=== PATIENT | female | born 1940 | race Caucasian/White ===

== ENCOUNTER 2017-11-09 07:36 | Day surgery (SDC) | payer MEDICARE ==
[2017-11-08 14:53] VITALS: BMI 30.4
[2017-11-09 08:01] LABS: INR-International Normal Ratio 1.1; PTT 29.9 SEC (22.9-36.1); Prothrombin Time 13.8 SEC (12.0-14.7)
[2017-11-09 08:28] VITALS: BP 154/71; TEMP 98
--- NOTE | 2017-11-09 12:23 | CT ---
CT GUIDED LIVER MASS BIOPSY: Date: 11/09/17 HISTORY: Liver mass. COMPARISON: CT of 10/28/17. TECHNIQUE/FINDINGS: The patient was brought to the CT suite. All questions were answered. Informed consent was obtained. Timeout was performed. Preprocedure imaging redemonstrated the hypodense area of the liver which was felt to reflect the are a of interest. The patient was given a total of 50 mcg of Fentanyl and 1 mg of Versed for moderate se dation. 4 mL of buffered lidocaine was instilled into the superficial and deep soft tissues, as well as along the hepatic capsule. Using a 17 gauge introducer and an 18 gauge 22 mm BioPince needle, a to nakia of three cores were obtained. Pathologist on site demonstrated adequacy. IMPRESSION: Technically successful CT guided liver mass biopsy. POS: ARIAN
== END 2017-11-09 12:15 | disposition home or self-care (01) ==
LOC: CT 07:36
PROVIDERS: ATTEND Family Medicine
PROC: 0FB03ZX Excision of Liver, Percutaneous Approach, Diagnostic (ICD-10-PCS; principal; 2017-11-09)
DX: C22.8 Malignant neoplasm of liver, primary, unspecified as to type (principal); E11.9 Type 2 diabetes mellitus without complications; I10 Essential (primary) hypertension; E78.00 Pure hypercholesterolemia, unspecified; Z79.899 Other long term (current) drug therapy
CPT/HCPCS: 36415; 47000; 77012; 85610; 85730; 88307; 88333; 88334; 88341; 88342

== ENCOUNTER 2017-11-17 16:06 | Emergency (ER) | payer MEDICARE ==
[~2017-11-17 16:06] MED LIST: ISOVUE-370 76%-LOCM 1 ML ONE
[2017-11-17] MEDS ORDERED: Fentanyl 100 MCG/2 ML VIAL ONE (16:30)
[2017-11-17] MEDS ORDERED: Ondansetron HCl/PF 4 MG/2 ML Vial ONE (16:39)
[2017-11-17 16:41] LABS: #Basophils 0.1 thou/uL (0.0-0.2); #Eosinphils 0.1 thou/uL (0.0-0.7); #Lymphocytes 2.2 thou/uL (1.20-3.40); #Neutrophils 8.8 thou/uL (1.40-6.50); %Basophils 1.1 % (0.0-1.0); %Eosinophils 0.7 % (0.0-10.0); %Lymphocytes 17.8 % (21.0-51.0); %Monocytes 7.9 % (0.0-10.0); %Neutrophils 72.5 % (42.0-75.0); Mean Corpuscular Hemoglobin 28.2 pg (27.0-31.0); Mean Corpuscular Volume 88.1 fL (78.0-98.0); Mean Platelet Volume 7.3 fL (7.4-10.4); Platelet Count 371 thou/uL (130-400); RBC Distribution Width 14.1 % (11.5-14.5); Red Blood Cell (RBC) Count 3.92 mill/uL (4.20-5.40); White Blood Cell (WBC) Count 12.2 thou/uL (4.8-10.8)
[2017-11-17 16:54] LABS: ALT (SGPT) 12 U/L (8-55); AST (SGOT) 27 U/L (5-34); Albumin 3.7 g/dL (3.4-4.8); Alkaline Phosphatase 185 U/L (40-150); Anion Gap 12 mmol/L (10-20); BUN (Urea Nitrogen) 20 mg/dL (9.8-20.1); Bilirubin, Total 0.8 mg/dL (0.2-1.2); Calc. Creatinine Clearance 0 mL/min (70-130); Calcium 9.5 mg/dL (7.8-10.44); Carbon Dioxide 25 mmol/L (23-31); Chloride 99 mmol/L (98-107); Estimated GFR-MDRD 49; Globulin 3.5 g/dL (2.4-3.5); Glucose 114 mg/dL (83-110); Lipase 19 U/L (8-78); Potassium 3.5 mmol/L (3.5-5.1); Protein, Total 7.2 g/dL (6.0-8.3); Sodium 132 mmol/L (136-145)
[2017-11-17 17:01] LABS: CKMB 0.9 ng/mL (0-6.6); Troponin I Less than 0.010 ng/mL (< 0.028)
[2017-11-17] MEDS ORDERED: Morphine 2 MG/ML SYRINGE ONE (17:32)
--- NOTE | 2017-11-17 21:03 | CT ---
CT ABDOMEN WITH CONTRAST CT PELVIS WITH CONTRAST: DATE: 11/17/17 HISTORY: 77-year-old female with generalized abdominal pain. COMPARISON: None. TECHNIQUE: IV injection of iodinated contrast media: 70 mL of Isovue 370. Oral contrast media: PO Isovue. FINDINGS: There are multiple rim enhancing solid neoplastic tumor masses throughout the entire left lobe of the liver and encroaching upon portions of the adjacent right lobe of the liver. There is a tiny calcifi ed gallstone near the neck of the gallbladder. No pericholecystic edema or gallbladder wall thickenin g. Small isolated subcapsular 1.2 cm round nodule in the right lobe of the liver in hepatic segment V I. Heavy atherosclerotic calcification without aneurysm of the abdominal aorta. No hydronephrosis john aterally. No adrenal mass. Pancreas and spleen are unremarkable. Moderate collection of free fluid in the dependent portion of the pelvic cavity with density of 25 HU, suggestive of blood. No pneumoperi toneum. No small bowel dilation. No colonic diverticulitis. Decompressed urinary bladder. Appendix no t identified. No overt signs of appendicitis. The entire right lobe of the liver has heterogeneous at tenuation suggestive of venous congestion. IMPRESSION: 1. Large number of confluent neoplastic tumor masses involving the liver, mostly the left lobe. 2. Cholelithiasis without evidence of acute cholecystitis. 3. Small to moderate collection of free fluid in the pelvis representing hemoperitoneum. MARTIN Winkler POS: ARIAN
== END 2017-11-17 23:20 ==
LOC: ERS 16:06
DX: C22.9 Malignant neoplasm of liver, not specified as primary or secondary (principal); E78.5 Hyperlipidemia, unspecified; F41.9 Anxiety disorder, unspecified; F32.9 Major depressive disorder, single episode, unspecified; Z87.891 Personal history of nicotine dependence; E11.9 Type 2 diabetes mellitus without complications; Z79.899 Other long term (current) drug therapy; Z79.84 Long term (current) use of oral hypoglycemic drugs
CPT/HCPCS: 74177; 80053; 82553; 83690; 84484; 85025; 93005; 96361; 96374; 96375; J2270; J2405; J3010

== ENCOUNTER 2017-12-29 12:33 | Outpatient (CLI) | payer MEDICARE ==
--- NOTE | 2017-12-29 16:48 | PET ---
PET WITH CT SKULL TO MID THIGH: CLINICAL HISTORY: Poorly differentiated carcinoma, unknown primary. RADIOPHARMACEUTICAL: 12. mCi F18-FDG IV. FINDINGS: Multifocal hypermetabolic masses throughout the liver present, most notably within the left hepatic l obe, with maximum SUV approximately 7.8. There is a hypermetabolic focus of the right ischial tuberos ity, SUV 2.6. There are diffuse bilateral patchy opacities of the pulmonary parenchyma which are nons pecific. There is a prominent volume of free pelvic fluid which likely relates to the prominent tumor burden of the liver, as there is also a small volume of perihepatic ascites. There is a left chest p ort in place. Borderline size of the spleen. Diffuse vascular calcification. IMPRESSION: 1. Diffuse, multifocal hypermetabolic hepatic masses compatible with malignancy. 2. Focus of increased metabolic activity at the ischial tuberosity, right-sided, which may relate to osseous metastatic disease. 3. Abdominal and pelvic ascites. POS: ARIAN
== END 2017-12-29 12:34 | disposition home or self-care (01) ==
LOC: PET 12:33
PROVIDERS: ATTEND Internal Medicine Hematology & Oncology
DX: C80.0 Disseminated malignant neoplasm, unspecified (principal); R16.0 Hepatomegaly, not elsewhere classified; R18.8 Other ascites
CPT/HCPCS: 78815; A9552

== ENCOUNTER 2018-01-21 17:21 | Inpatient (IN) | payer MEDICARE ==
[2018-01-21] MEDS ORDERED: Piperacillin/Tazobactam 4.5 GM VIAL ONE (19:04)
[2018-01-21] MEDS ORDERED: HYDROcodone/Acetaminophen 5/325 mg Tablet ONE (20:14)
[2018-01-21] MEDS ORDERED: diphenhydrAMINE 50 MG/ML VIAL ONE (21:44)
[2018-01-21] MEDS ORDERED: Acetaminophen 650 MG Suppository PR PRN (21:48)
[2018-01-21] MEDS ORDERED: Zolpidem Tartrate 5 MG TAB PO PRN (21:48)
[2018-01-21] MEDS ORDERED: Dextrose 50% Abboject 50 ML SYRINGE SLOW IVP PRN (21:48)
[2018-01-21] MEDS ORDERED: HumaLOG 300 UNITS/3 ML VIAL SC PRN (21:48)
[2018-01-21] MEDS ORDERED: Dextrose 5% in Water 1,000 ML IV PRN (21:48)
[2018-01-21] MEDS ORDERED: Senokot S 8.6-50 MG TAB PO PRN (21:48)
[2018-01-21 22:13] LABS: Hemoglobin 7.3 g/dL (12.0-16.0); Mean Corpuscular HGB CONC 36.1 g/dL (32.0-36.0); Mean Corpuscular Hemoglobin 30.1 pg (27.0-31.0); Mean Corpuscular Volume 83.5 fL (78.0-98.0); Platelet Count 16 thou/uL (130-400); Red Blood Cell (RBC) Count 2.42 mill/uL (4.20-5.40); White Blood Cell (WBC) Count 0.4 thou/uL (4.8-10.8)
[2018-01-21 22:15] LABS: Anion Gap 14 mmol/L (10-20); BUN (Urea Nitrogen) 36 mg/dL (9.8-20.1); Calc. Creatinine Clearance 0 mL/min (70-130); Carbon Dioxide 25 mmol/L (23-31); Chloride 97 mmol/L (98-107); Estimated GFR-MDRD 43; Glucose 178 mg/dL (83-110); Sodium 133 mmol/L (136-145)
[2018-01-21 22:26] LABS: Potassium 2.9 mmol/L (3.5-5.1)
[2018-01-21 23:01] VITALS: BMI 29.0
[2018-01-21 23:47] LABS: Lactic Acid 1.8 mmol/L (0.5-2.2)
[2018-01-21] MEDS: Morphine 2 MG/ML SYRINGE SLOW IVP PRN (23:49)
[2018-01-21] MEDS: Potassium Chloride 10 MEQ in Premix Bag 1 BAG IVPB SCH (23:53)
[2018-01-21] MEDS: Sodium Chloride 0.9% 1,000 ML IV SCH (23:53)
[2018-01-22] MEDS: MEROPENEM 1 GM/50 ML 1 GM in Premix Bag 1 BAG IVPB SCH ×2 (00:32→13:07)
[2018-01-22] MEDS: Potassium Chloride 10 MEQ in Premix Bag 1 BAG IVPB SCH ×3 (01:46→03:57)
[2018-01-22] MEDS: Morphine 2 MG/ML SYRINGE SLOW IVP PRN ×2 (03:57→09:45)
[2018-01-22] MEDS ORDERED: Magnesium 2 GM/NS 0.9% 100 ML 2 GM in Premix Bag 1 BAG IVPB SCH (05:00)
[2018-01-22] MEDS ORDERED: Magnesium 2 GM/50 ML 2 GM in Premix Bag 1 BAG IVPB SCH (05:30)
[2018-01-22] MEDS ORDERED: Famotidine/PF 20 mg/2ml Vial SLOW IVP SCH ×2 (09:00)
[2018-01-22] MEDS ORDERED: Enoxaparin Sodium 40 MG/0.4 ML SYRINGE SC SCH (09:00)
[2018-01-22] MEDS ORDERED: Famotidine 20 MG TAB PO SCH ×2 (09:00)
[2018-01-22] MEDS ORDERED: Sodium Chloride 0.65% Nasal 44 ML BOT EA NARE PRN ×2 (09:06→19:27)
[2018-01-22] MEDS ORDERED: Loratadine 10 MG TAB PO PRN (09:06)
[2018-01-22] MEDS ORDERED: Cepastat Lozenges 1 LOZ PO PRN (09:06)
[2018-01-22] MEDS ORDERED: Artificial Tears 18 DROP/0.9 ML EA EYE PRN (09:06)
[2018-01-22] MEDS ORDERED: Eucerin (Mineral Oil/Petrolatum,White) 30 gm Jar TOP PRN (09:06)
[2018-01-22] MEDS ORDERED: hydrALAZINE 20 MG/ML VIAL SLOW IVP PRN (09:06)
[2018-01-22] MEDS ORDERED: Loperamide HCl 2 MG CAP PO PRN (09:06)
[2018-01-22] MEDS ORDERED: Diabetic Tussin 200 MG/10 ML UDCUP PO PRN (09:06)
--- NOTE | 2018-01-22 09:10 | PDOC.PN ---
- Subjective Encounter Start Date: 01/22/18 Encounter Start Time: 07:00 -: old records requested/rev Patient seen and examined. No new complaints. No overnight events she feels weak, her breathing is fine, her pain is controlled - Objective Resuscitation Status - Order Detail: 01/21/18 21:48 Resuscitation Status Routine Resuscitation Status: FULL: Full Resuscitation MAR Reviewed: Yes Vital Signs & Weight: Vital Signs (12 hours) Temp Pulse Resp BP Pulse Ox 01/22/18 08:31 92 L 01/22/18 08:29 61 20 92 L 01/22/18 08:18 96.0 F L 62 18 106/53 L 98 01/22/18 03:37 97.4 F L 61 20 117/58 L 100 01/21/18 23:27 97.4 F L 60 16 135/65 99 01/21/18 23:21 98 01/21/18 22:30 97.4 F L 62 20 140/63 100 01/21/18 21:48 98 Weight Weight 180 lb 1 oz Result Diagrams: 01/21/18 19:27 01/21/18 19:27 Additional Labs: Accuchecks 01/22/18 05:16 POC Glucose 129 H Phys Exam - Physical Examination Constitutional: NAD HEENT: PERRLA, moist MMs, sclera anicteric Neck: no JVD, supple Respiratory: no wheezing, no rhonchi Cardiovascular: RRR, no significant murmur, no rub Gastrointestinal: soft, non-tender, no distention, positive bowel sounds Musculoskeletal: no edema, pulses present Neurological: non-focal, normal sensation, moves all 4 limbs Lymphatic: no nodes Psychiatric: normal affect, A&O x 3 Skin: no rash, normal turgor Dx/Plan (1) Acute kidney injury Code(s): N17.9 - ACUTE KIDNEY FAILURE, UNSPECIFIED Status: Acute (2) Hypokalemia Code(s): E87.6 - HYPOKALEMIA Status: Acute (3) Hyponatremia Code(s): E87.1 - HYPO-OSMOLALITY AND HYPONATREMIA Status: Acute (4) Hypotension Status: Acute (5) Left lower lobe pneumonia Code(s): J18.1 - LOBAR PNEUMONIA, UNSPECIFIED ORGANISM Status: Acute (6) Pancytopenia due to chemotherapy Code(s): D61.810 - ANTINEOPLASTIC CHEMOTHERAPY INDUCED PANCYTOPENIA Status: Acute (7) 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 Code(s): C78.7 - SECONDARY MALIG NEOPLASM OF LIVER AND INTRAHEPATIC BILE DUCT; C80.1 - MALIGNANT (PRIMARY) NEOPLASM, UNSPECIFIED Status: Acute Comment: poorly differentiated carcinoma (8) Anxiety and depression Code(s): F41.9 - ANXIETY DISORDER, UNSPECIFIED; F32.9 - MAJOR DEPRESSIVE DISORDER, SINGLE EPISODE, UNSPECIFIED Status: Chronic (9) Dyslipidemia Code(s): E78.5 - HYPERLIPIDEMIA, UNSPECIFIED Status: Chronic (10) Hypertension Code(s): I10 - ESSENTIAL (PRIMARY) HYPERTENSION Status: Chronic - Plan cont current plan of care, continue antibiotics * continue empiric meropenam and vancomycin * continue IVF * hold her BP meds for SBP <120 * follow culture * repeat labs tomorrow * medication reviewed as below * symptomatic treatment. * transfusional support if needed Review of Systems - Review of Systems Constitutional: weakness. negative: fever, chills, sweats, malaise, other ENT: negative: Ear Pain, Ear Discharge, Nose Pain, Nose Discharge, Nose Congestion, Mouth Pain, Mouth Swelling, Throat Pain, Throat Swelling, Other Respiratory: negative: Cough, Dry, Shortness of Breath, Hemoptysis, SOB with Excertion, Pleuritic Pain, Sputum, Wheezing Cardiovascular: negative: chest pain, palpitations, orthopnea, paroxysmal nocturnal dyspnea, edema, light headedness, other Gastrointestinal: negative: Nausea, Vomiting, Abdominal Pain, Diarrhea, Constipation, Melena, Hematochezia, Other Genitourinary: negative: Dysuria, Frequency, Incontinence, Hematuria, Retention , Other Musculoskeletal: negative: Neck Pain, Shoulder Pain, Arm Pain, Back Pain, Hand Pain, Leg Pain, Foot Pain, Other Skin: negative: Rash, Lesions, Donnell, Bruising, Other - Medications/Allergies Allergies/Adverse Reactions: Allergies Allergy/AdvReac Type Severity Reaction Status Date / Time ibuprofen Allergy Rash Verified 11/08/17 11:44 Medications: Current Medications Acetaminophen (Tylenol) 650 mg PO Q4H PRN PRN Reason: Headache/Fever/Mild Pain (1-3) Acetaminophen (Tylenol) 650 mg [place] Q4H PRN PRN Reason: Headache/Fever/Mild Pain (1-3) Albuterol/Ipratropium (Duoneb) 3 ml NEB [id number] [facility] Last Admin: 01/22/18 08:29 Dose: 3 ml Albuterol/Ipratropium (Duoneb) 3 ml NEB Q4H PRN PRN Reason: SOB &/or Wheezing Artificial Tears (Tears Naturale) 2 drop EA EYE PRN PRN PRN Reason: Dry Eyes Betamethasone/Clotrimazole (Lotrisone Cream) 0 gm TOP BID [facility] Bisacodyl (Dulcolax) 10 mg PO DAILYPRN PRN PRN Reason: Constipation Bisoprolol Fumarate (Zebeta) 5 mg PO DAILY [facility] Cholecalciferol (Vitamin D3) 2,000 units PO DAILY [facility] Clopidogrel Bisulfate (Plavix) 75 mg PO DAILY [facility] Dextrose/Water (Dextrose 50%) 25 gm SLOW IVP PRN PRN PRN Reason: Hypoglycemia Enoxaparin Sodium (Lovenox) 40 mg SC 0900 [facility] Glucagon (Glucagon) 1 mg IM PRN PRN PRN Reason: Hypoglycemia Guaifenesin (Robitussin Sf) 200 mg PO Q4H PRN PRN Reason: Cough Hydralazine HCl (Apresoline) 10 mg SLOW IVP Q4H PRN PRN Reason: SBP > 180 and HR < 70 Sodium Chloride (Normal Saline 0.9%) 1,000 mls @ 100 mls/hr IV .Q10H [facility] Last Admin: 01/21/18 23:53 Dose: 1,000 mls Dextrose/Water (D5w) 1,000 mls @ 0 mls/hr IV .Q0M PRN PRN Reason: Hypoglycemia Vancomycin HCl 750 mg/ Sodium (Chloride) 250 mls @ 250 mls/hr IVPB Q12HR [facility] Meropenem 1 gm/ Device 50 mls @ 100 mls/hr IVPB 1200,2359 [facility] Last Admin: 01/22/18 00:32 Dose: 50 mls Insulin Human Lispro (Humalog) 0 units SC .MILD SLIDING SCALE PRN PRN Reason: Mild Correctional Scale Insulin Human Lispro (Humalog) 0 units SC .BEDTIME SLIDING SC PRN PRN Reason: Bedtime Correctional Scale Loperamide HCl (Imodium) 2 mg PO PRN PRN PRN Reason: Diarrhea/Loose Stools Loratadine (Claritin) 10 mg PO DAILYPRN PRN PRN Reason: Sinus Symptoms Losartan Potassium (Cozaar) 50 mg PO DAILY [facility] Mineral Oil/White Petrolatum (Eucerin Cream) 0 gm TOP BIDPRN PRN PRN Reason: Dry Skin Miscellaneous Medication (Pharmacy To Dose) 1 each IVPB PRN PRN PRN Reason: Pharmacy to dose Montelukast Sodium (Singulair) 10 mg PO HS [facility] Morphine Sulfate (Morphine) 2 mg SLOW IVP Q4H PRN PRN Reason: Moderate Pain (4-6) Last Admin: 01/22/18 03:57 Dose: 2 mg Ondansetron HCl (Zofran Odt) 4 mg PO Q6H PRN PRN Reason: Nausea/Vomiting Ondansetron HCl (Zofran) 4 mg IVP Q6H PRN PRN Reason: Nausea/Vomiting Pantoprazole Sodium (Protonix) 40 mg PO DAILY [facility] Saccharomyces Boulardii (Florastor) 250 mg PO DAILY [facility] Senna/Docusate Sodium (Senokot S) 2 tab PO BIDPRN PRN PRN Reason: Constipation Sertraline HCl (Zoloft) 50 mg PO DAILY [facility] Simvastatin (Zocor) 40 mg PO HS [facility] Sodium Chloride (Flush - Normal Saline) 10 ml IVF Q12HR PRN PRN Reason: Saline Flush Sodium Chloride (Flush - Normal Saline) 10 ml IVF PRN PRN PRN Reason: Saline Flush Sodium Chloride ([place] Nasal [place] 0.65%) 0 ml EA NARE QIDPRN PRN PRN Reason: Nasal Congestion Throat Lozenges (Cepastat Lozenges) 1 nimisha PO Q2H PRN PRN Reason: Sore Throat Zolpidem Tartrate (Ambien) 5 mg PO HSPRN PRN PRN Reason: Insomnia
[2018-01-22] MEDS: Ondansetron PF 4 MG/2 ML Vial IVP PRN ×2 (09:50→23:58)
[2018-01-22] MEDS: Clopidogrel Bisulfate 75 MG TAB PO SCH ×2 (09:56→10:27)
[2018-01-22] MEDS: Vancomycin HCl 750 MG in Sodium Chloride 0.9% 250 ML 250 ML IVPB SCH ×2 (09:56→21:16)
[2018-01-22] MEDS: Losartan 25 MG TAB PO SCH ×2 (09:57→10:30)
[2018-01-22] MEDS: Bisoprolol Fumarate 5 MG TAB PO SCH ×2 (09:57→10:27)
[2018-01-22 13:11] LABS: Hemoglobin 9.9 g/dL (12.0-16.0); Mean Corpuscular HGB CONC 32.1 g/dL (32.0-36.0); Mean Corpuscular Hemoglobin 27.9 pg (27.0-31.0); Mean Platelet Volume 16.9 fL (7.4-10.4); Platelet Count 11 thou/uL (130-400); RBC Distribution Width 15.2 % (11.5-14.5); Red Blood Cell (RBC) Count 3.55 mill/uL (4.20-5.40); White Blood Cell (WBC) Count 0.4 thou/uL (4.8-10.8)
[2018-01-22] MEDS: Sodium Chloride 0.9% 1,000 ML IV SCH ×2 (20:39→21:21)
[2018-01-22] MEDS: Clotrimazole/Betamethasone Cream 45 GM TUBE TOP SCH ×2 (20:39→21:20)
[2018-01-22] MEDS: Montelukast Sodium 10 mg Tablet PO SCH (21:20)
[2018-01-22] MEDS: Simvastatin 40 MG TAB PO SCH (21:20)
[2018-01-23] MEDS: MEROPENEM 1 GM/50 ML 1 GM in Premix Bag 1 BAG IVPB SCH ×3 (02:05→23:33)
[2018-01-23 06:32] LABS: Hemoglobin 9.2 g/dL (12.0-16.0); Mean Corpuscular HGB CONC 30.7 g/dL (32.0-36.0); Mean Corpuscular Hemoglobin 27.1 pg (27.0-31.0); Mean Corpuscular Volume 88.5 fL (78.0-98.0); Mean Platelet Volume 11.4 fL (7.4-10.4); Platelet Count 34 thou/uL (130-400); RBC Distribution Width 15.3 % (11.5-14.5); Red Blood Cell (RBC) Count 3.41 mill/uL (4.20-5.40); White Blood Cell (WBC) Count 0.5 thou/uL (4.8-10.8)
[2018-01-23 06:43] LABS: Chloride 103 mmol/L (98-107); Potassium 3.2 mmol/L (3.5-5.1); Sodium 134 mmol/L (136-145)
[2018-01-23 06:49] LABS: MDiff Complete? YES; Ovalocytes SLIGHT = 2-5 cells (100X) (0-1/hpf); PLT Morphology Comment Appears Decreased
[2018-01-23 06:55] LABS: ALT (SGPT) 12 U/L (8-55); AST (SGOT) 36 U/L (5-34); Albumin 2.1 g/dL (3.4-4.8); Alkaline Phosphatase 98 U/L (40-150); BUN (Urea Nitrogen) 25 mg/dL (9.8-20.1); Bilirubin, Total 1.4 mg/dL (0.2-1.2); Calc. Creatinine Clearance 70 mL/min (70-130); Calcium 8.3 mg/dL (7.8-10.44); Carbon Dioxide 20 mmol/L (23-31); Estimated GFR-MDRD 65; Globulin 3.1 g/dL (2.4-3.5); Glucose 154 mg/dL (83-110); Protein, Total 5.2 g/dL (6.0-8.3)
[2018-01-23 06:57] LABS: Anion Gap 14 mmol/L (10-20)
--- NOTE | 2018-01-23 07:48 | HP ---
CHIEF COMPLAINT: Pneumonia, transfer. HISTORY OF PRESENT ILLNESS: This is a 77-year-old female with past medical history of diabetes mellitus type 2, hyperlipidemia, hypertension, liver CA, being transferred to our facility for left lower lobe pneumonia. Per the patient, she has liver cancer and she was started on chemo medication with Gemzar and Abraxane by Dr. Hernandez on Tuesday and Dr. Hernandez is the patient's oncologist and basically the patient states that she has been receiving the chemo and now the patient has been reporting nausea and vomiting, some weakness and also cough with productive sputum. Due to the cough, generalized weakness, and nausea, the patient's oncologist, Dr. Hernandez, wanted the patient to be transferred to our hospital for dehydration and also shortness of breath. The patient is now found to have left lower lobe pneumonia, which was confirmed on the x-ray. The patient was started on IV Levaquin. At this time, the patient endorses some generalized weakness, dry mouth; however, the patient denies any sick contact. Denies dizziness, chills, chest pain, palpitations, abdominal pain, at this time. REVIEW OF SYSTEMS: Positive for cough, productive sputum, shortness of breath, and some generalized weakness, otherwise as documented in the HPI, all systems were reviewed and are negative. PAST MEDICAL HISTORY: 1. Hyperlipidemia. 2. Hypertension. 3. Diabetes mellitus, type 2. PAST SURGICAL HISTORY: 1. Ganglion cyst removal from wrist. 2. Carotid artery surgery. 3. Tumor removed from the abdominal area in the 70s. 4. Hysterectomy. FAMILY HISTORY: Reviewed and noncontributory to this visit. PSYCHIATRIC HISTORY: Anxiety, depression. SOCIAL HISTORY: The patient drinks occasionally. The patient denies any illicit drug use. The patient is a former tobacco user. Quit more than 10 years ago. ALLERGIES: THE PATIENT IS ALLERGIC TO IBUPROFEN, GIVES THE PATIENT RASH. CURRENT MEDICATIONS: The patient is on: 1. Albuterol. 2. Gabapentin 300 mg. 3. Metformin 500 mg b.i.d. 4. Vitamin D. 5. Montelukast. 6. Sertraline 50 mg. 7. Simvastatin 40 mg. 8. Bisoprolol/hydrochlorothiazide 10 mg/6.25 mg. PHYSICAL EXAMINATION: VITAL SIGNS: Blood pressure is , pulse of 64, respiratory rate of 18, O2 saturation is 98% on 2 L oxygen. GENERAL: The patient is awake, alert, oriented x3, not in acute distress. The patient is lying in bed. The patient is very pleasant. HEENT: Normocephalic, atraumatic. Pupils are equal, round, and reactive to light. Extraocular movements are intact. No scleral icterus. No conjunctival pallor. Mucous membranes are dry. NECK: Trachea is midline. Full range of motion. No JVD. Supple. LUNGS: Clear to auscultation bilaterally. No wheezing, no rales, no rhonchi is appreciated. CARDIAC: Positive S1, S2. Regular rate and rhythm. No murmur, no gallops, no rubs appreciated. ABDOMEN: Soft, nontender, nondistended. Positive bowel sounds in all quadrants. No palpable masses. Some erythema noted at the left lower quadrant. EXTREMITIES: The patient has 5/5 upper extremity strength with good pulses bilaterally at the upper extremities. Lower extremities: The patient has trace edema noted at the lower extremities bilaterally, 5/5 strength. NEUROLOGIC: Cranial nerves 2 through 12 grossly intact. No neurologic deficits noted. SKIN: Warm, dry, and intact. Refer to the description of the abdomen. PSYCHIATRIC: The patient is alert, awake, and oriented x3. Normal affect. ED COURSE: In the ED, the patient was given; 1. Benadryl injection 25 mg. 2. Reeves 5 mg. 3. Vancomycin 1 g. 4. Zosyn 4.5 g. LABORATORY DATA: WBC 0.4, hemoglobin is 7.3, hematocrit is 20.2, platelet count is . Sodium is 133, potassium is 2.9, chloride is 97, BUN is 36, creatinine is 1.2, glucose is 170. Lactic acid is 2.2. ASSESSMENT AND PLAN: This is a 77-year-old female, being admitted for; 1. Productive cough due to left lower lobe pneumonia. At this point, the patient has been started on vancomycin and Merrem. We will continue antibiotics. We will continue IV fluids. We will continue the patient on p.r.n. pain medications and fever medications. 2. Pancytopenia, likely due to malignancy and chemotherapy. At this point, we have consulted Oncology and we have admitted the patient to Oncology unit. We will continue to follow the patient closely and we will replete platelets if platelets are less than 10,000, and we will transfuse the patient when H and H is less than 7, and the patient will benefit from Neupogen since the patient's WBC is currently 0.4. We will leave the rest of the recommendation and management to the patient's oncologist. 3. Dehydration. The patient is currently on IV fluids. We will continue the patient on IV fluids. The patient's BUN and creatinine ratio is 20:1 confirming dehydration. We will continue the patient on IV fluids and we will monitor the patient closely. 4. Diabetes mellitus type 2. At this point, we will continue the patient on insulin sliding scale, and we will monitor the patient closely. We will try and keep the patient's blood sugars between 140 to 180. 5. Acute kidney injury due to dehydration. We will continue IV hydration and we will monitor the patient's creatinine in the a.m. 6. Hypokalemia. At this point, we will give the patient IV potassium, and we will check magnesium levels and we will start magnesium if magnesium levels are less than 1.9. 7. Hyperlipidemia. We will continue the patient on her current home medication. 8. Hypertension. Currently, the patient's blood pressure is controlled. We will continue the patient on current blood pressure regimen, and we will continue to monitor the patient closely. 9. Deep venous thrombosis/gastrointestinal prophylaxis. Job ID: [id number]
--- NOTE | 2018-01-23 07:51 | CON ---
DATE OF CONSULTATION: REASON FOR CONSULTATION: Pancreatic cancer and febrile neutropenia. HISTORY OF PRESENT ILLNESS: A 77-year-old female with metastatic pancreatic cancer, currently on chemotherapy with gemcitabine and Abraxane, last received treatment on Tuesday, 01/17, presenting to the hospital with worsening fatigue, shortness of breath, cough. The patient initially presented to outside ER and chest x-ray there showed pneumonia and she was transferred to [facility]. The patient was started on meropenem and vancomycin. White blood cells were 0.4 and platelets 16 with hemoglobin of 7.3. Since admission, patient states she feels slightly better. She also complains of nausea without vomiting that is controlled with medications and severe abdominal pain that she says is under her ribs and does not radiate to her back. She says she feels mildly constipated. However, states she has not been eating, but she does not think she is making any stool. She states she felt okay the day after chemotherapy and then started getting weaker and states she was unable to walk due to pain and weakness in her legs. REVIEW OF SYSTEMS: Ten-point review of systems negative except as per HPI. PAST MEDICAL HISTORY: Pancreatic cancer, hypertension, diabetes. SOCIAL HISTORY: Former smoking. FAMILY HISTORY: Noncontributory. PHYSICAL EXAMINATION: VITAL SIGNS: Temperature 96.0, pulse 61, respirations 20, saturating 92% on 2 L by nasal cannula, blood pressure 106/53. GENERAL APPEARANCE: The patient is lying in bed, on nasal cannula and appears uncomfortable, but in no acute distress. HEENT: Normocephalic, atraumatic. CARDIOVASCULAR: S1 and S2. A 2/6 systolic ejection murmur, otherwise regular rate and rhythm. RESPIRATIONS: Upper lung cosme clear to auscultation bilaterally. Some crackles heard in the bilateral lower lung cosme. ABDOMEN: Minimal bowel sounds, otherwise soft, nondistended, nontender. EXTREMITIES: No peripheral edema. No tenderness. NEUROLOGIC: Nonfocal. Able to move all extremities. Cranial nerves 2 through 12 grossly intact. PSYCHIATRIC: Awake, alert, and oriented x3. LABORATORY DATA: Outside ER, white blood cells were 0.5, platelets 22. BUN 40 with creatinine of 1.6. Lactate was elevated at 4.2. Laboratory data upon admission to [facility] showed a white blood cell count of 0.4, hemoglobin 7.3 with platelets of 16. Sodium 133, potassium 2.9, chloride 97, CO2 25, BUN 36, creatinine 1.2. Lactic acid improved to 2.2 and most recently 1.8. IMAGING DATA: Outside chest x-ray showed pneumonia. ASSESSMENT AND PLAN: A 77-year-old female with metastatic pancreatic cancer, on gemcitabine and Abraxane chemotherapy, last received on Tuesday, 01/17, presenting with new onset pneumonia, severe weakness, and nausea. The patient is pancytopenic secondary to chemotherapy and has pneumonia; however, does not have fever. The patient is currently on meropenem and vancomycin for her pneumonia and recommend continuing these. I will start Neupogen injections due to neutropenia and infection. The patient will require transfusion of packed red blood cells if her hemoglobin drops less than 7 and transfusion of platelets if her platelet level drops to 10 or less or if she develops any bleeding. We will continue to follow this patient along with you. Thank you for this consult. Job ID: [id number]
[2018-01-23 09:13] LABS: Vancomycin, Trough 15.3 ug/mL
[2018-01-23] MEDS: Bisoprolol Fumarate 5 MG TAB PO SCH (09:21)
[2018-01-23] MEDS: Clopidogrel Bisulfate 75 MG TAB PO SCH (09:22)
[2018-01-23] MEDS: Losartan 25 MG TAB PO SCH (09:22)
[2018-01-23] MEDS: Saccharomyces boulardii 250 MG CAP PO SCH (09:22)
[2018-01-23] MEDS: Clotrimazole/Betamethasone Cream 45 GM TUBE TOP SCH ×2 (09:26→20:58)
[2018-01-23] MEDS: Ondansetron PF 4 MG/2 ML Vial IVP PRN ×2 (09:32→20:57)
[2018-01-23] MEDS: NS 0.9% w/ 20 MEQ KCL 1,000 ML/1,000 ML BAG IV SCH (11:03)
[2018-01-23] MEDS: Vancomycin HCl 750 MG in Sodium Chloride 0.9% 250 ML 250 ML IVPB SCH ×2 (11:03→20:52)
[2018-01-23] MEDS: Sodium Chloride 0.9% 1,000 ML IV SCH (11:06)
--- NOTE | 2018-01-23 11:19 | PDOC.PN ---
- Subjective Encounter Start Date: 01/23/18 Encounter Start Time: 09:00 Patient seen and examined. No new complaints. No overnight events - Objective Resuscitation Status - Order Detail: 01/21/18 21:48 Resuscitation Status Routine Resuscitation Status: FULL: Full Resuscitation MAR Reviewed: Yes Vital Signs & Weight: Vital Signs (12 hours) Temp Pulse Pulse Resp BP BP BP 01/23/18 07:50 97.7 F 77 18 121/57 L 01/23/18 06:52 68 20 01/23/18 04:30 98.0 F 73 16 115/57 L 01/23/18 02:02 97.7 F 73 16 95/38 L 01/23/18 00:24 01/23/18 00:23 73 16 01/23/18 00:08 97.9 F 68 16 109/40 L 01/22/18 23:37 98.0 F 70 16 114/47 L Pulse Ox 01/23/18 07:50 95 01/23/18 06:52 96 01/23/18 04:30 100 01/23/18 02:02 96 01/23/18 00:24 98 01/23/18 00:23 98 01/23/18 00:08 100 01/22/18 23:37 100 Weight Weight 180 lb 1 oz I&O: 01/22/18 01/23/18 01/24/18 06:59 06:59 06:59 Intake Total 850 Balance 850 Result Diagrams: 01/23/18 05:50 01/23/18 05:50 Additional Labs: Accuchecks 01/23/18 01/22/18 01/22/18 10:22 21:14 11:17 POC Glucose 152 H 148 H 141 H Phys Exam - Physical Examination Constitutional: NAD HEENT: PERRLA, moist MMs, sclera anicteric Neck: no JVD, supple Respiratory: no wheezing, no rales, no rhonchi Cardiovascular: RRR, no significant murmur, no rub Gastrointestinal: soft, non-tender, no distention, positive bowel sounds Musculoskeletal: no edema, pulses present Neurological: non-focal, normal sensation Lymphatic: no nodes Psychiatric: normal affect, A&O x 3 Skin: no rash, normal turgor Dx/Plan (1) Acute kidney injury Code(s): N17.9 - ACUTE KIDNEY FAILURE, UNSPECIFIED Status: Acute (2) Hypokalemia Code(s): E87.6 - HYPOKALEMIA Status: Acute (3) Hyponatremia Code(s): E87.1 - HYPO-OSMOLALITY AND HYPONATREMIA Status: Acute (4) Hypotension Status: Acute (5) Left lower lobe pneumonia Code(s): J18.1 - LOBAR PNEUMONIA, UNSPECIFIED ORGANISM Status: Acute (6) Pancytopenia due to chemotherapy Code(s): D61.810 - ANTINEOPLASTIC CHEMOTHERAPY INDUCED PANCYTOPENIA Status: Acute (7) 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 Code(s): C78.7 - SECONDARY MALIG NEOPLASM OF LIVER AND INTRAHEPATIC BILE DUCT; C80.1 - MALIGNANT (PRIMARY) NEOPLASM, UNSPECIFIED Status: Acute Comment: poorly differentiated carcinoma (8) Anxiety and depression Code(s): F41.9 - ANXIETY DISORDER, UNSPECIFIED; F32.9 - MAJOR DEPRESSIVE DISORDER, SINGLE EPISODE, UNSPECIFIED Status: Chronic (9) Dyslipidemia Code(s): E78.5 - HYPERLIPIDEMIA, UNSPECIFIED Status: Chronic (10) Hypertension Code(s): I10 - ESSENTIAL (PRIMARY) HYPERTENSION Status: Chronic - Plan cont current plan of care, continue antibiotics * continue IV antibiotics today * medication reviewed as below * symptomatic treatment * oncology recommendation appreciated * monitor labs. Review of Systems - Review of Systems ENT: negative: Ear Pain, Ear Discharge, Nose Pain, Nose Discharge, Nose Congestion, Mouth Pain, Mouth Swelling, Throat Pain, Throat Swelling, Other Respiratory: negative: Cough, Dry, Shortness of Breath, Hemoptysis, SOB with Excertion, Pleuritic Pain, Sputum, Wheezing Cardiovascular: negative: chest pain, palpitations, orthopnea, paroxysmal nocturnal dyspnea, edema, light headedness, other Gastrointestinal: negative: Nausea, Vomiting, Abdominal Pain, Diarrhea, Constipation, Melena, Hematochezia, Other Genitourinary: negative: Dysuria, Frequency, Incontinence, Hematuria, Retention , Other Musculoskeletal: negative: Neck Pain, Shoulder Pain, Arm Pain, Back Pain, Hand Pain, Leg Pain, Foot Pain, Other Skin: negative: Rash, Lesions, Donnell, Bruising, Other - Medications/Allergies Allergies/Adverse Reactions: Allergies Allergy/AdvReac Type Severity Reaction Status Date / Time ibuprofen Allergy Rash Verified 11/08/17 11:44 Medications: Current Medications Acetaminophen (Tylenol) 650 mg PO Q4H PRN PRN Reason: Headache/Fever/Mild Pain (1-3) Acetaminophen (Tylenol) 650 mg [place] Q4H PRN PRN Reason: Headache/Fever/Mild Pain (1-3) Albuterol/Ipratropium (Duoneb) 3 ml NEB [id number] [facility] Last Admin: 01/23/18 06:52 Dose: 3 ml Albuterol/Ipratropium (Duoneb) 3 ml NEB Q4H PRN PRN Reason: SOB &/or Wheezing Artificial Tears (Tears Naturale) 2 drop EA EYE PRN PRN PRN Reason: Dry Eyes Betamethasone/Clotrimazole (Lotrisone Cream) 0 gm TOP BID [facility] Last Admin: 01/23/18 09:26 Dose: 1 applic Bisacodyl (Dulcolax) 10 mg PO DAILYPRN PRN PRN Reason: Constipation Bisoprolol Fumarate (Zebeta) 5 mg PO DAILY [facility] Last Admin: 01/23/18 09:21 Dose: 5 mg Cholecalciferol (Vitamin D3) 2,000 units PO DAILY [facility] Last Admin: 01/23/18 09:21 Dose: 2,000 units Clopidogrel Bisulfate (Plavix) 75 mg PO DAILY [facility] Last Admin: 01/23/18 09:22 Dose: 75 mg Dextrose/Water (Dextrose 50%) 25 gm SLOW IVP PRN PRN PRN Reason: Hypoglycemia Glucagon (Glucagon) 1 mg IM PRN PRN PRN Reason: Hypoglycemia Guaifenesin (Robitussin Sf) 200 mg PO Q4H PRN PRN Reason: Cough Hydralazine HCl (Apresoline) 10 mg SLOW IVP Q4H PRN PRN Reason: SBP > 180 and HR < 70 Dextrose/Water (D5w) 1,000 mls @ 0 mls/hr IV .Q0M PRN PRN Reason: Hypoglycemia Vancomycin HCl 750 mg/ Sodium (Chloride) 250 mls @ 250 mls/hr IVPB Q12HR [facility] Last Admin: 01/23/18 11:03 Dose: 250 mls Meropenem 1 gm/ Device 50 mls @ 100 mls/hr IVPB 1200,2359 [facility] Last Admin: 01/23/18 02:05 Dose: 50 mls Potassium Chloride/Sodium Chloride (Ns 0.9% W/ 20 Meq Kcl) 1,000 ml in 1,000 mls @ 75 mls/hr IV .[id number] [facility] Last Admin: 01/23/18 11:03 Dose: 1,000 mls Insulin Human Lispro (Humalog) 0 units SC .MILD SLIDING SCALE PRN PRN Reason: Mild Correctional Scale Insulin Human Lispro (Humalog) 0 units SC .BEDTIME SLIDING SC PRN PRN Reason: Bedtime Correctional Scale Loperamide HCl (Imodium) 2 mg PO PRN PRN PRN Reason: Diarrhea/Loose Stools Loratadine (Claritin) 10 mg PO DAILYPRN PRN PRN Reason: Sinus Symptoms Losartan Potassium (Cozaar) 50 mg PO DAILY [facility] Last Admin: 01/23/18 09:22 Dose: 50 mg Mineral Oil/White Petrolatum (Eucerin Cream) 0 gm TOP BIDPRN PRN PRN Reason: Dry Skin Miscellaneous Medication (Pharmacy To Dose) 1 each IVPB PRN PRN PRN Reason: Pharmacy to dose Montelukast Sodium (Singulair) 10 mg PO [facility] Last Admin: 01/22/18 21:20 Dose: 10 mg Morphine Sulfate (Morphine) 2 mg SLOW IVP Q4H PRN PRN Reason: Moderate Pain (4-6) Last Admin: 01/22/18 09:45 Dose: 2 mg Ondansetron HCl (Zofran Odt) 4 mg PO Q6H PRN PRN Reason: Nausea/Vomiting Ondansetron HCl (Zofran) 4 mg IVP Q6H PRN PRN Reason: Nausea/Vomiting Last Admin: 01/23/18 09:32 Dose: 4 mg Pantoprazole Sodium (Protonix) 40 mg PO DAILY [facility] Last Admin: 01/23/18 09:22 Dose: 40 mg Saccharomyces Boulardii (Florastor) 250 mg PO DAILY [facility] Last Admin: 01/23/18 09:22 Dose: 250 mg Senna/Docusate Sodium (Senokot S) 2 tab PO BIDPRN PRN PRN Reason: Constipation Sertraline HCl (Zoloft) 50 mg PO DAILY [facility] Last Admin: 01/23/18 09:22 Dose: 50 mg Simvastatin (Zocor) 40 mg PO [facility] Last Admin: 01/22/18 21:20 Dose: 40 mg Sodium Chloride (Flush - Normal Saline) 10 ml IVF Q12HR PRN PRN Reason: Saline Flush Sodium Chloride (Flush - Normal Saline) 10 ml IVF PRN PRN PRN Reason: Saline Flush Last Admin: 01/22/18 23:58 Dose: 10 ml Sodium Chloride ([place] 0.65%) 0 ml EA NARE TID PRN PRN Reason: Nasal Congestion Tbo-Filgrastim (Granix) 480 mcg SC QAM [facility] Last Admin: 01/23/18 11:03 Dose: 480 mcg Throat Lozenges (Cepastat Lozenges) 1 nimisha PO Q2H PRN PRN Reason: Sore Throat Zolpidem Tartrate (Ambien) 5 mg PO HSPRN PRN PRN Reason: Insomnia Last Admin: 01/23/18 01:36 Dose: 5 mg
--- NOTE | 2018-01-23 13:56 | PQF ---
DATE: 01-24-18 ATTN: DR. TOBIAS SALTER Please exercise your independent, professional judgment in responding to the clarification form. Clinical indicators are provided on the bottom of this form for your review Please check appropriate box(es): [ x ] Sepsis due to: (Pna, etc.) [ ] SIRS due to non-infectious process (please specify etiology) [ ] with organ dysfunction [ ] without organ dysfunction [ ] Severe sepsis with acute organ dysfunction of: (Examples: respiratory failure, encephalopathy, acute kidney failure, other) [ ] Other diagnosis [ ] Unable to determine In addition, please specify: Present on Admission (POA): [x ] Yes [ ] No [ ] Unable to determine For continuity of documentation, please document condition throughout progress notes and discharge summary. Thank You. CLINICAL INDICATORS - SIGNS / SYMPTOMS / LABS ER: 98/47, WBC: 0.5 AND ABSOLUTE NEUTROPHILS ARE 1900, PLATELETS 22, LACTATE ELEVATED 4.2, LLL PNEUMONIA ER DX: PNEUMONIA, SEPSIS, THROMBOCYTOPENIA WBC: 12-1-18: 0.4 12-2-18: 0.4 12-3-18: 0.5 RISK FACTORS: ER DX: PNEUMONIA, SEPSIS, THROMBOCYTOPENIA ADVANCED AGE TREATMENTS: ER: VANCOMYCIN IVF, ZOSYN (This form is maintained as a part of the permanent medical record) 2014 [employer]. All Rights Reserved [email or web address] Office: [phone] [facility]OSPITALN[facility]
[2018-01-23] MEDS: Bisacodyl 5 MG TAB PO PRN (15:46)
[2018-01-23] MEDS: HumaLOG 300 UNITS/3 ML VIAL SC PRN (17:40)
[2018-01-23] MEDS: Simvastatin 40 MG TAB PO SCH (20:51)
[2018-01-23] MEDS: Montelukast Sodium 10 mg Tablet PO SCH (20:51)
[2018-01-23] MEDS: Senokot S 8.6-50 MG TAB PO SCH (20:52)
[2018-01-24] MEDS: NS 0.9% w/ 20 MEQ KCL 1,000 ML/1,000 ML BAG IV SCH (03:51)
[2018-01-24] MEDS: Ondansetron PF 4 MG/2 ML Vial IVP PRN (04:19)
[2018-01-24] MEDS: Clotrimazole/Betamethasone Cream 45 GM TUBE TOP SCH ×2 (10:00→20:04)
[2018-01-24 10:40] LABS: Anion Gap 14 mmol/L (10-20); BUN (Urea Nitrogen) 21 mg/dL (9.8-20.1); Calc. Creatinine Clearance 78 mL/min (70-130); Carbon Dioxide 23 mmol/L (23-31); Chloride 107 mmol/L (98-107); Estimated GFR-MDRD 73; Glucose 152 mg/dL (83-110); Potassium 3.2 mmol/L (3.5-5.1); Sodium 141 mmol/L (136-145)
[2018-01-24] MEDS: Morphine 2 MG/ML SYRINGE SLOW IVP PRN ×2 (10:41→21:42)
[2018-01-24] MEDS: Vancomycin HCl 750 MG in Sodium Chloride 0.9% 250 ML 250 ML IVPB SCH ×2 (10:42→22:42)
[2018-01-24] MEDS: Losartan 25 MG TAB PO SCH (10:48)
[2018-01-24] MEDS: Polyethylene Glycol 3350 17 GM Packet PO SCH (10:48)
[2018-01-24] MEDS: Saccharomyces boulardii 250 MG CAP PO SCH (10:48)
[2018-01-24] MEDS: Senokot S 8.6-50 MG TAB PO SCH ×2 (10:49→20:03)
[2018-01-24] MEDS: Clopidogrel Bisulfate 75 MG TAB PO SCH (10:49)
[2018-01-24] MEDS: Bisoprolol Fumarate 5 MG TAB PO SCH (10:50)
[2018-01-24 11:02] LABS: Hemoglobin 9.4 g/dL (12.0-16.0); Mean Corpuscular Hemoglobin 26.5 pg (27.0-31.0); Mean Corpuscular Volume 85.5 fL (78.0-98.0); Platelet Count 12 thou/uL (130-400); RBC Distribution Width 15.3 % (11.5-14.5); Red Blood Cell (RBC) Count 3.55 mill/uL (4.20-5.40); White Blood Cell (WBC) Count 0.9 thou/uL (4.8-10.8)
[2018-01-24] MEDS: Ondansetron ODT 4 MG TAB PO PRN (11:06)
--- NOTE | 2018-01-24 11:17 | PDOC.PN ---
- Subjective Encounter Start Date: 01/24/18 Encounter Start Time: 07:00 Patient seen and examined. No new complaints. No overnight events - Objective Resuscitation Status - Order Detail: 01/21/18 21:48 Resuscitation Status Routine Resuscitation Status: FULL: Full Resuscitation MAR Reviewed: Yes Vital Signs & Weight: Vital Signs (12 hours) Temp Pulse Resp BP Pulse Ox 01/24/18 08:00 98.4 F 79 18 130/58 L 95 01/24/18 06:34 87 L 01/24/18 06:31 76 16 87 L 01/24/18 04:00 97.5 F L 76 16 122/58 L 93 L 01/24/18 01:02 69 14 98 01/24/18 00:00 97.5 F L 72 18 127/60 94 L Weight Admit Weight 180 lb 1 oz Weight 180 lb 1 oz I&O: 01/23/18 01/24/18 01/25/18 06:59 06:59 06:59 Intake Total 850 Balance 850 Result Diagrams: 01/24/18 10:10 01/24/18 10:10 Additional Labs: Accuchecks 01/24/18 01/23/18 01/23/18 05:52 20:21 15:55 POC Glucose 148 H 124 H 157 H Phys Exam - Physical Examination Constitutional: NAD HEENT: PERRLA, moist MMs, sclera anicteric Neck: no JVD, supple Respiratory: no wheezing, no rales, no rhonchi Cardiovascular: RRR, no significant murmur, no rub Gastrointestinal: soft, non-tender, no distention, positive bowel sounds Musculoskeletal: no edema, pulses present Neurological: non-focal, normal sensation, moves all 4 limbs Lymphatic: no nodes Psychiatric: normal affect, A&O x 3 Skin: no rash, normal turgor Dx/Plan (1) Acute kidney injury Code(s): N17.9 - ACUTE KIDNEY FAILURE, UNSPECIFIED Status: Acute (2) Hypokalemia Code(s): E87.6 - HYPOKALEMIA Status: Acute (3) Hyponatremia Code(s): E87.1 - HYPO-OSMOLALITY AND HYPONATREMIA Status: Acute (4) Hypotension Status: Acute (5) Left lower lobe pneumonia Code(s): J18.1 - LOBAR PNEUMONIA, UNSPECIFIED ORGANISM Status: Acute (6) Pancytopenia due to chemotherapy Code(s): D61.810 - ANTINEOPLASTIC CHEMOTHERAPY INDUCED PANCYTOPENIA Status: Acute (7) 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 Code(s): C78.7 - SECONDARY MALIG NEOPLASM OF LIVER AND INTRAHEPATIC BILE DUCT; C80.1 - MALIGNANT (PRIMARY) NEOPLASM, UNSPECIFIED Status: Acute Comment: poorly differentiated carcinoma (8) Anxiety and depression Code(s): F41.9 - ANXIETY DISORDER, UNSPECIFIED; F32.9 - MAJOR DEPRESSIVE DISORDER, SINGLE EPISODE, UNSPECIFIED Status: Chronic (9) Dyslipidemia Code(s): E78.5 - HYPERLIPIDEMIA, UNSPECIFIED Status: Chronic (10) Hypertension Code(s): I10 - ESSENTIAL (PRIMARY) HYPERTENSION Status: Chronic - Plan cont current plan of care, continue antibiotics * medication reviewed as below * symptomatic treatment. * today will transfuse 1 pack platelet * continue empiric antibiotics * so far culture negative Review of Systems - Review of Systems ENT: negative: Ear Pain, Ear Discharge, Nose Pain, Nose Discharge, Nose Congestion, Mouth Pain, Mouth Swelling, Throat Pain, Throat Swelling, Other Respiratory: negative: Cough, Dry, Shortness of Breath, Hemoptysis, SOB with Excertion, Pleuritic Pain, Sputum, Wheezing Cardiovascular: negative: chest pain, palpitations, orthopnea, paroxysmal nocturnal dyspnea, edema, light headedness, other Gastrointestinal: negative: Nausea, Vomiting, Abdominal Pain, Diarrhea, Constipation, Melena, Hematochezia, Other Genitourinary: negative: Dysuria, Frequency, Incontinence, Hematuria, Retention , Other Musculoskeletal: negative: Neck Pain, Shoulder Pain, Arm Pain, Back Pain, Hand Pain, Leg Pain, Foot Pain, Other Skin: negative: Rash, Lesions, Donnell, Bruising, Other - Medications/Allergies Allergies/Adverse Reactions: Allergies Allergy/AdvReac Type Severity Reaction Status Date / Time ibuprofen Allergy Rash Verified 11/08/17 11:44 Medications: Current Medications Acetaminophen (Tylenol) 650 mg PO Q4H PRN PRN Reason: Headache/Fever/Mild Pain (1-3) Acetaminophen (Tylenol) 650 mg [place] Q4H PRN PRN Reason: Headache/Fever/Mild Pain (1-3) Albuterol/Ipratropium (Duoneb) 3 ml NEB [id number] [facility] Last Admin: 01/24/18 06:31 Dose: 3 ml Albuterol/Ipratropium (Duoneb) 3 ml NEB Q4H PRN PRN Reason: SOB &/or Wheezing Artificial Tears (Tears Naturale) 2 drop EA EYE PRN PRN PRN Reason: Dry Eyes Betamethasone/Clotrimazole (Lotrisone Cream) 0 gm TOP BID [facility] Last Admin: 01/23/18 20:58 Dose: 1 applic Bisacodyl (Dulcolax) 10 mg PO DAILYPRN PRN PRN Reason: Constipation Last Admin: 01/23/18 15:46 Dose: 10 mg Bisoprolol Fumarate (Zebeta) 5 mg PO DAILY [facility] Last Admin: 01/24/18 10:50 Dose: 5 mg Cholecalciferol (Vitamin D3) 2,000 units PO DAILY [facility] Last Admin: 01/24/18 10:49 Dose: 2,000 units Clopidogrel Bisulfate (Plavix) 75 mg PO DAILY [facility] Last Admin: 01/24/18 10:49 Dose: Not Given Dextrose/Water (Dextrose 50%) 25 gm SLOW IVP PRN PRN PRN Reason: Hypoglycemia Glucagon (Glucagon) 1 mg IM PRN PRN PRN Reason: Hypoglycemia Guaifenesin (Robitussin Sf) 200 mg PO Q4H PRN PRN Reason: Cough Hydralazine HCl (Apresoline) 10 mg SLOW IVP Q4H PRN PRN Reason: SBP > 180 and HR < 70 Dextrose/Water (D5w) 1,000 mls @ 0 mls/hr IV .Q0M PRN PRN Reason: Hypoglycemia Vancomycin HCl 750 mg/ Sodium (Chloride) 250 mls @ 250 mls/hr IVPB Q12HR [facility] Last Admin: 01/24/18 10:42 Dose: 250 mls Meropenem 1 gm/ Device 50 mls @ 100 mls/hr IVPB 1200,2359 [facility] Last Admin: 01/23/18 23:33 Dose: 50 mls Insulin Human Lispro (Humalog) 0 units SC .MILD SLIDING SCALE PRN PRN Reason: Mild Correctional Scale Last Admin: 01/23/18 17:40 Dose: 2 unit Insulin Human Lispro (Humalog) 0 units SC .BEDTIME SLIDING SC PRN PRN Reason: Bedtime Correctional Scale Loperamide HCl (Imodium) 2 mg PO PRN PRN PRN Reason: Diarrhea/Loose Stools Loratadine (Claritin) 10 mg PO DAILYPRN PRN PRN Reason: Sinus Symptoms Losartan Potassium (Cozaar) 50 mg PO DAILY [facility] Last Admin: 01/24/18 10:48 Dose: 50 mg Mineral Oil/White Petrolatum (Eucerin Cream) 0 gm TOP BIDPRN PRN PRN Reason: Dry Skin Miscellaneous Medication (Pharmacy To Dose) 1 each IVPB PRN PRN PRN Reason: Pharmacy to dose Montelukast Sodium (Singulair) 10 mg PO HS [facility] Last Admin: 01/23/18 20:51 Dose: 10 mg Morphine Sulfate (Morphine) 2 mg SLOW IVP Q4H PRN PRN Reason: Moderate Pain (4-6) Last Admin: 01/24/18 10:41 Dose: 2 mg Ondansetron HCl (Zofran Odt) 4 mg PO Q6H PRN PRN Reason: Nausea/Vomiting Last Admin: 01/24/18 11:06 Dose: 4 mg Ondansetron HCl (Zofran) 4 mg IVP Q6H PRN PRN Reason: Nausea/Vomiting Last Admin: 01/24/18 04:19 Dose: 4 mg Pantoprazole Sodium (Protonix) 40 mg PO DAILY [facility] Last Admin: 01/24/18 10:48 Dose: 40 mg Polyethylene Glycol (Miralax) 17 gm PO DAILY [facility] Last Admin: 01/24/18 10:48 Dose: 17 gm Saccharomyces Boulardii (Florastor) 250 mg PO DAILY [facility] Last Admin: 01/24/18 10:48 Dose: 250 mg Senna/Docusate Sodium (Senokot S) 2 tab PO BID [facility] Last Admin: 01/24/18 10:49 Dose: 2 tab Sertraline HCl (Zoloft) 50 mg PO DAILY [facility] Last Admin: 01/24/18 10:49 Dose: 50 mg Simvastatin (Zocor) 40 mg PO [facility] Last Admin: 01/23/18 20:51 Dose: 40 mg Sodium Chloride (Flush - Normal Saline) 10 ml IVF Q12HR PRN PRN Reason: Saline Flush Last Admin: 01/24/18 10:43 Dose: 10 ml Sodium Chloride (Flush - Normal Saline) 10 ml IVF PRN PRN PRN Reason: Saline Flush Last Admin: 01/22/18 23:58 Dose: 10 ml Sodium Chloride ([place] Nasal [place] 0.65%) 0 ml EA NARE TID PRN PRN Reason: Nasal Congestion Tbo-Filgrastim (Granix) 480 mcg SC QAM [facility] Last Admin: 01/23/18 11:03 Dose: 480 mcg Throat Lozenges (Cepastat Lozenges) 1 nimisha PO Q2H PRN PRN Reason: Sore Throat Zolpidem Tartrate (Ambien) 5 mg PO HSPRN PRN PRN Reason: Insomnia Last Admin: 01/23/18 01:36 Dose: 5 mg
[2018-01-24 11:29] LABS: Band 4 % (5-11); Lymphocytes 40 % (21-51); MDiff Complete? YES; Monocytes 32 % (0-10); Neutrophil 16 % (42-75); Ovalocytes SLIGHT = 2-5 cells (100X) (0-1/hpf); PLT Morphology Comment Appears Decreased; Polychromasia SLIGHT = 2-3 cells (100X) (0-2/hpf); Reactive Lymphocytes 8 % (0-10)
--- NOTE | 2018-01-24 11:29 | RAD ---
TWO VIEW CHEST: COMPARISON: 01/21/2018. INDICATION: Pneumonia. FINDINGS: Left chest port remains in place. There is patchy left basilar density. Elevation of the right anjel diaphragm is seen. There is mild vascular prominence as well as an enlarged cardiac silhouette. IMPRESSION: 1. Patchy left basilar density. This could relate to pneumonia. An underlying mass is not excluded and, therefore, followup upon resolution of acute symptoms and completion of treatment regimen as ne cessary. 2. Interstitial opacities could relate to edema versus interstitial spread of malignancy. This may also be reevaluated at time of short-term followup. 3. Elevation of the right hemidiaphragm limiting visualization of the right lung base. CODE T POS: [facility]
[2018-01-24] MEDS ORDERED: Potassium Chloride 20 MEQ TAB PO SCH (12:00)
[2018-01-24] MEDS: MEROPENEM 1 GM/50 ML 1 GM in Premix Bag 1 BAG IVPB SCH ×2 (13:24→23:50)
[2018-01-24 15:50] LABS: Bilirubin Small (Negative); Blood, Urine Negative (Negative); Clarity CLEAR (Clear); Glucose, Urine (Dipstick) 100 mg/dL (Negative); Leukocyte Negative (Negative); Nitrite Negative (Negative); Protein, Urine (Dipstick) Trace mg/dL (Neg-Trace); Specific Gravity, Urine 1.016 (1.002-1.036); Urobilinogen 0.2 mg/dL (0.2-1.0)
[2018-01-24 15:53] LABS: Bacteria/HPF None Seen HPF (None Seen); Hyaline Casts/LPF 0-3 HYALINE CAST LPF (0-3 Hyaline); Pathc Cast-AUWi Flag 0.29 (0-2.49); Squamous Epithelial 0-3 HPF (0-3); WBC/HPF 0-3 HPF (0-3)
[2018-01-24] MEDS ORDERED: Potassium Chloride 20 MEQ in Premix Bag 1 BAG IVPB SCH (18:00)
[2018-01-24] MEDS: Montelukast Sodium 10 mg Tablet PO SCH (20:03)
[2018-01-24] MEDS: Simvastatin 40 MG TAB PO SCH (20:03)
[2018-01-24 21:01] LABS: Vancomycin, Trough 19.3 ug/mL
[2018-01-24] MEDS ORDERED: Vancomycin HCl 500 MG in Sodium Chloride 0.9% 100 ML IVPB SCH (22:00)
[2018-01-25 07:57] LABS: Hemoglobin 8.6 g/dL (12.0-16.0); Mean Corpuscular HGB CONC 31.4 g/dL (32.0-36.0); Mean Corpuscular Hemoglobin 26.9 pg (27.0-31.0); Mean Corpuscular Volume 85.8 fL (78.0-98.0); Platelet Count 21 thou/uL (130-400); RBC Distribution Width 15.4 % (11.5-14.5); Red Blood Cell (RBC) Count 3.21 mill/uL (4.20-5.40); White Blood Cell (WBC) Count 1.6 thou/uL (4.8-10.8)
[2018-01-25 08:06] LABS: Anion Gap 11 mmol/L (10-20); BUN (Urea Nitrogen) 21 mg/dL (9.8-20.1); Calc. Creatinine Clearance 82 mL/min (70-130); Calcium 8.5 mg/dL (7.8-10.44); Carbon Dioxide 26 mmol/L (23-31); Chloride 108 mmol/L (98-107); Estimated GFR-MDRD 77; Glucose 131 mg/dL (83-110); Potassium 3.4 mmol/L (3.5-5.1); Sodium 142 mmol/L (136-145)
[2018-01-25 08:46] LABS: Band 4 % (5-11); Hypochromia SLIGHT = 6-15 cells (100X) (0-5/hpf); Lymphocytes 28 % (21-51); MDiff Complete? YES; Monocytes 32 % (0-10); Neutrophil 28 % (42-75); Nucleated RBC 2 % (0); Ovalocytes MODERATE= 6-15 cells (100X) (0-1/hpf); PLT Morphology Comment Appears Decreased; Polychromasia SLIGHT = 2-3 cells (100X) (0-2/hpf); Reactive Lymphocytes 8 % (0-10)
--- NOTE | 2018-01-25 09:29 | PDOC.PN ---
- Subjective Encounter Start Date: 01/25/18 Encounter Start Time: 07:00 she is very weak, she requires oxygen, has not done therapy yet, no fever - Objective Resuscitation Status - Order Detail: 01/21/18 21:48 Resuscitation Status Routine Resuscitation Status: FULL: Full Resuscitation Vital Signs & Weight: Vital Signs (12 hours) Temp Pulse Resp BP Pulse Ox 01/25/18 07:42 97.6 F 75 20 120/59 L 92 L 01/25/18 06:20 74 16 94 L 01/25/18 06:19 94 L 01/25/18 04:00 97.8 F 79 20 129/59 L 90 L 01/25/18 00:17 70 16 94 L Weight Admit Weight 180 lb 1 oz Weight 180 lb 1 oz I&O: 01/24/18 01/25/18 01/26/18 06:59 06:59 06:59 Intake Total 1820 Balance 1820 Result Diagrams: 01/25/18 07:36 01/25/18 07:36 Additional Labs: Accuchecks 01/25/18 01/24/18 01/24/18 05:03 20:08 16:25 POC Glucose 133 H 147 H 148 H 01/24/18 13:01 POC Glucose 173 H Radiology Reviewed by me: Yes (chest xray reviewed) Phys Exam - Physical Examination Constitutional: NAD HEENT: PERRLA, moist MMs, sclera anicteric Neck: no JVD, supple Respiratory: no wheezing, no rhonchi left base rales Cardiovascular: RRR, no significant murmur, no rub Gastrointestinal: soft, non-tender, no distention, positive bowel sounds Musculoskeletal: no edema, pulses present Neurological: non-focal, normal sensation, moves all 4 limbs Lymphatic: no nodes Psychiatric: normal affect, A&O x 3 Skin: no rash, normal turgor Dx/Plan (1) Acute kidney injury Code(s): N17.9 - ACUTE KIDNEY FAILURE, UNSPECIFIED Status: Resolved (2) Hypokalemia Code(s): E87.6 - HYPOKALEMIA Status: Acute (3) Hyponatremia Code(s): E87.1 - HYPO-OSMOLALITY AND HYPONATREMIA Status: Resolved (4) Hypotension Status: Resolved (5) Left lower lobe pneumonia Code(s): J18.1 - LOBAR PNEUMONIA, UNSPECIFIED ORGANISM Status: Acute (6) Pancytopenia due to chemotherapy Code(s): D61.810 - ANTINEOPLASTIC CHEMOTHERAPY INDUCED PANCYTOPENIA Status: Acute (7) 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 Code(s): C78.7 - SECONDARY MALIG NEOPLASM OF LIVER AND INTRAHEPATIC BILE DUCT; C80.1 - MALIGNANT (PRIMARY) NEOPLASM, UNSPECIFIED Status: Acute Comment: poorly differentiated carcinoma (8) Anxiety and depression Code(s): F41.9 - ANXIETY DISORDER, UNSPECIFIED; F32.9 - MAJOR DEPRESSIVE DISORDER, SINGLE EPISODE, UNSPECIFIED Status: Chronic (9) Dyslipidemia Code(s): E78.5 - HYPERLIPIDEMIA, UNSPECIFIED Status: Chronic (10) Hypertension Code(s): I10 - ESSENTIAL (PRIMARY) HYPERTENSION Status: Chronic - Plan cont current plan of care, continue antibiotics * start PT/OT * continue meropenam and vancomycin * wean off oxygen today as tolerated * medication reviewed as below * symptomatic treatment. * she will need repeat chest xray on follow up Review of Systems - Review of Systems Constitutional: weakness, malaise. negative: fever, chills, sweats, other Respiratory: Cough, SOB with Excertion. negative: Dry, Shortness of Breath, Hemoptysis, Pleuritic Pain, Sputum, Wheezing Cardiovascular: negative: chest pain, palpitations, orthopnea, paroxysmal nocturnal dyspnea, edema, light headedness, other Gastrointestinal: negative: Nausea, Vomiting, Abdominal Pain, Diarrhea, Constipation, Melena, Hematochezia, Other Genitourinary: negative: Dysuria, Frequency, Incontinence, Hematuria, Retention , Other Musculoskeletal: negative: Neck Pain, Shoulder Pain, Arm Pain, Back Pain, Hand Pain, Leg Pain, Foot Pain, Other Skin: negative: Rash, Lesions, Donnell, Bruising, Other - Medications/Allergies Allergies/Adverse Reactions: Allergies Allergy/AdvReac Type Severity Reaction Status Date / Time ibuprofen Allergy Rash Verified 11/08/17 11:44 Medications: Current Medications Acetaminophen (Tylenol) 650 mg PO Q4H PRN PRN Reason: Headache/Fever/Mild Pain (1-3) Acetaminophen (Tylenol) 650 mg AR Q4H PRN PRN Reason: Headache/Fever/Mild Pain (1-3) Albuterol/Ipratropium (Duoneb) 3 ml NEB [id number] [facility] Last Admin: 01/25/18 06:20 Dose: 3 ml Albuterol/Ipratropium (Duoneb) 3 ml NEB Q4H PRN PRN Reason: SOB &/or Wheezing Artificial Tears (Tears Naturale) 2 drop EA EYE PRN PRN PRN Reason: Dry Eyes Betamethasone/Clotrimazole (Lotrisone Cream) 0 gm TOP BID [facility] Last Admin: 01/24/18 20:04 Dose: 1 applic Bisacodyl (Dulcolax) 10 mg PO DAILYPRN PRN PRN Reason: Constipation Last Admin: 01/23/18 15:46 Dose: 10 mg Bisoprolol Fumarate (Zebeta) 5 mg PO DAILY [facility] Last Admin: 01/24/18 10:50 Dose: 5 mg Cholecalciferol (Vitamin D3) 2,000 units PO DAILY [facility] Last Admin: 01/24/18 10:49 Dose: 2,000 units Clopidogrel Bisulfate (Plavix) 75 mg PO DAILY [facility] Last Admin: 01/24/18 10:49 Dose: Not Given Dextrose/Water (Dextrose 50%) 25 gm SLOW IVP PRN PRN PRN Reason: Hypoglycemia Glucagon (Glucagon) 1 mg IM PRN PRN PRN Reason: Hypoglycemia Guaifenesin (Robitussin Sf) 200 mg PO Q4H PRN PRN Reason: Cough Hydralazine HCl (Apresoline) 10 mg SLOW IVP Q4H PRN PRN Reason: SBP > 180 and HR < 70 Dextrose/Water (D5w) 1,000 mls @ 0 mls/hr IV .Q0M PRN PRN Reason: Hypoglycemia Meropenem 1 gm/ Device 50 mls @ 100 mls/hr IVPB 1200,2359 [facility] Last Admin: 01/24/18 23:50 Dose: 50 mls Vancomycin HCl 500 mg/ Sodium (Chloride) 100 mls @ 100 mls/hr IVPB Q12HR [facility] Insulin Human Lispro (Humalog) 0 units SC .MILD SLIDING SCALE PRN PRN Reason: Mild Correctional Scale Last Admin: 01/23/18 17:40 Dose: 2 unit Insulin Human Lispro (Humalog) 0 units SC .BEDTIME SLIDING SC PRN PRN Reason: Bedtime Correctional Scale Loperamide HCl (Imodium) 2 mg PO PRN PRN PRN Reason: Diarrhea/Loose Stools Loratadine (Claritin) 10 mg PO DAILYPRN PRN PRN Reason: Sinus Symptoms Losartan Potassium (Cozaar) 50 mg PO DAILY [facility] Last Admin: 01/24/18 10:48 Dose: 50 mg Mineral Oil/White Petrolatum (Eucerin Cream) 0 gm TOP BIDPRN PRN PRN Reason: Dry Skin Miscellaneous Medication (Pharmacy To Dose) 1 each IVPB PRN PRN PRN Reason: Pharmacy to dose Montelukast Sodium (Singulair) 10 mg PO [facility] Last Admin: 01/24/18 20:03 Dose: 10 mg Morphine Sulfate (Morphine) 2 mg SLOW IVP Q4H PRN PRN Reason: Moderate Pain (4-6) Last Admin: 01/24/18 21:42 Dose: 2 mg Ondansetron HCl (Zofran Odt) 4 mg PO Q6H PRN PRN Reason: Nausea/Vomiting Last Admin: 01/24/18 11:06 Dose: 4 mg Ondansetron HCl (Zofran) 4 mg IVP Q6H PRN PRN Reason: Nausea/Vomiting Last Admin: 01/24/18 04:19 Dose: 4 mg Pantoprazole Sodium (Protonix) 40 mg PO DAILY [facility] Last Admin: 01/24/18 10:48 Dose: 40 mg Polyethylene Glycol (Miralax) 17 gm PO DAILY [facility] Last Admin: 01/24/18 10:48 Dose: 17 gm Saccharomyces Boulardii (Florastor) 250 mg PO DAILY [facility] Last Admin: 01/24/18 10:48 Dose: 250 mg Senna/Docusate Sodium (Senokot S) 2 tab PO BID [facility] Last Admin: 01/24/18 20:03 Dose: 2 tab Sertraline HCl (Zoloft) 50 mg PO DAILY [facility] Last Admin: 01/24/18 10:49 Dose: 50 mg Simvastatin (Zocor) 40 mg PO [facility] Last Admin: 01/24/18 20:03 Dose: 40 mg Sodium Chloride (Flush - Normal Saline) 10 ml IVF Q12HR PRN PRN Reason: Saline Flush Last Admin: 01/24/18 10:43 Dose: 10 ml Sodium Chloride (Flush - Normal Saline) 10 ml IVF PRN PRN PRN Reason: Saline Flush Last Admin: 01/22/18 23:58 Dose: 10 ml Sodium Chloride ([place] Nasal [place] 0.65%) 0 ml EA NARE TID PRN PRN Reason: Nasal Congestion Tbo-Filgrastim (Granix) 480 mcg SC QAM [facility] Last Admin: 01/24/18 12:12 Dose: 480 mcg Throat Lozenges (Cepastat Lozenges) 1 nimisha PO Q2H PRN PRN Reason: Sore Throat Zolpidem Tartrate (Ambien) 5 mg PO HSPRN PRN PRN Reason: Insomnia Last Admin: 01/23/18 01:36 Dose: 5 mg
[2018-01-25] MEDS: Morphine 2 MG/ML SYRINGE SLOW IVP PRN (10:00)
[2018-01-25] MEDS: Vancomycin HCl 500 MG in Sodium Chloride 0.9% 100 ML IVPB SCH ×2 (10:00→21:45)
[2018-01-25] MEDS: Polyethylene Glycol 3350 17 GM Packet PO SCH (10:01)
[2018-01-25] MEDS: Losartan 25 MG TAB PO SCH (10:01)
[2018-01-25] MEDS: Ondansetron PF 4 MG/2 ML Vial IVP PRN (10:01)
[2018-01-25] MEDS: Bisoprolol Fumarate 5 MG TAB PO SCH (10:01)
[2018-01-25] MEDS: Senokot S 8.6-50 MG TAB PO SCH ×3 (10:01→21:00)
[2018-01-25] MEDS: Saccharomyces boulardii 250 MG CAP PO SCH (10:02)
[2018-01-25] MEDS: Clopidogrel Bisulfate 75 MG TAB PO SCH (10:03)
[2018-01-25] MEDS: Clotrimazole/Betamethasone Cream 45 GM TUBE TOP SCH ×2 (10:05→21:05)
[2018-01-25] MEDS ORDERED: Potassium Chloride 20 MEQ in Premix Bag 1 BAG IVPB SCH ×2 (10:15→12:30)
[2018-01-25] MEDS: MEROPENEM 1 GM/50 ML 1 GM in Premix Bag 1 BAG IVPB SCH (13:26)
--- NOTE | 2018-01-25 13:49 | CT ---
CT BRAIN NONCONTRAST: HISTORY: A 77-year-old female with altered mental status, neurological changes; rule out brain metastases. FINDINGS: There is no midline shift or any other mass effect. There is no evidence of acute intracranial hemor rhage, large cortical infarct, obstructive hydrocephalus, or extraaxial fluid collection. The calvar ium is intact. Please note that a negative noncontrast brain CT does not rule out brain metastases. IMPRESSION: No acute intracranial findings. jn [] POS: ARIAN
[2018-01-25] MEDS: Simvastatin 40 MG TAB PO SCH (21:00)
[2018-01-25] MEDS: Montelukast Sodium 10 mg Tablet PO SCH (21:00)
[2018-01-26] MEDS: MEROPENEM 1 GM/50 ML 1 GM in Premix Bag 1 BAG IVPB SCH ×3 (00:36→23:54)
[2018-01-26] MEDS: Ondansetron ODT 4 MG TAB PO PRN (04:32)
[2018-01-26 08:59] LABS: Hemoglobin 10.7 g/dL (12.0-16.0); Mean Corpuscular HGB CONC 31.4 g/dL (32.0-36.0); Mean Corpuscular Hemoglobin 27.2 pg (27.0-31.0); Mean Corpuscular Volume 86.5 fL (78.0-98.0); Platelet Count 24 thou/uL (130-400); RBC Distribution Width 15.7 % (11.5-14.5); Red Blood Cell (RBC) Count 3.93 mill/uL (4.20-5.40); White Blood Cell (WBC) Count 5.2 thou/uL (4.8-10.8)
[2018-01-26 09:14] LABS: Vancomycin, Trough 19.9 ug/mL
[2018-01-26] MEDS ORDERED: Fleet Enema 133 ML BOT PR SCH (09:15)
[2018-01-26 09:17] LABS: ALT (SGPT) 16 U/L (8-55); AST (SGOT) 57 U/L (5-34); Albumin 2.8 g/dL (3.4-4.8); Alkaline Phosphatase 143 U/L (40-150); Anion Gap 12 mmol/L (10-20); BUN (Urea Nitrogen) 25 mg/dL (9.8-20.1); Bilirubin, Total 1.6 mg/dL (0.2-1.2); Calc. Creatinine Clearance 77 mL/min (70-130); Calcium 8.9 mg/dL (7.8-10.44); Carbon Dioxide 27 mmol/L (23-31); Chloride 109 mmol/L (98-107); Estimated GFR-MDRD 71; Globulin 2.8 g/dL (2.4-3.5); Glucose 159 mg/dL (83-110); Potassium 3.5 mmol/L (3.5-5.1); Protein, Total 5.6 g/dL (6.0-8.3); Sodium 144 mmol/L (136-145)
[2018-01-26] MEDS: Polyethylene Glycol 3350 17 GM Packet PO SCH (09:38)
[2018-01-26] MEDS: Clopidogrel Bisulfate 75 MG TAB PO SCH (09:40)
[2018-01-26] MEDS: Senokot S 8.6-50 MG TAB PO SCH ×2 (09:40→21:00)
[2018-01-26] MEDS: Saccharomyces boulardii 250 MG CAP PO SCH (09:40)
[2018-01-26] MEDS: Bisoprolol Fumarate 5 MG TAB PO SCH (09:40)
[2018-01-26] MEDS: Losartan 25 MG TAB PO SCH (09:40)
[2018-01-26] MEDS: Ondansetron PF 4 MG/2 ML Vial IVP PRN ×2 (09:45→21:06)
[2018-01-26] MEDS: Clotrimazole/Betamethasone Cream 45 GM TUBE TOP SCH ×2 (09:55→21:01)
[2018-01-26 10:01] LABS: Anisocytosis SLIGHT = 6-15 cells (100X) (0-5/hpf); Band 6 % (5-11); Eosinophils 1 % (0-10); Lymphocytes 25 % (21-51); MDiff Complete? YES; Metamyelocyte 3 % (0-0); Monocytes 20 % (0-10); Myelocyte 4 % (0-0); Neutrophil 41 % (42-75); Nucleated RBC 5 % (0); PLT Morphology Comment Appears Decreased; Polychromasia SLIGHT = 2-3 cells (100X) (0-2/hpf)
--- NOTE | 2018-01-26 10:01 | PDOC.PN ---
- Subjective Encounter Start Date: 01/26/18 Encounter Start Time: 08:40 she is very weak, has no BM since admission, has rib cage pain, Patient seen and examined. No overnight events - Objective Resuscitation Status - Order Detail: 01/21/18 21:48 Resuscitation Status Routine Resuscitation Status: FULL: Full Resuscitation MAR Reviewed: Yes Vital Signs & Weight: Vital Signs (12 hours) Temp Pulse Resp BP BP Pulse Ox 01/26/18 08:00 97.5 F L 79 12 129/59 L 92 L 01/26/18 07:23 94 L 01/26/18 07:22 76 16 94 L 01/26/18 04:00 97.6 F 85 16 131/61 92 L 01/26/18 01:21 68 18 88 L 01/26/18 00:00 98.0 F Weight Admit Weight 180 lb 1 oz Weight 180 lb 1 oz I&O: 01/25/18 01/26/18 01/27/18 06:59 06:59 06:59 Intake Total 1820 1520 Output Total 1000 Balance 1820 520 Result Diagrams: 01/26/18 08:39 01/26/18 08:39 Additional Labs: Accuchecks 01/26/18 01/25/18 01/25/18 05:11 20:22 16:02 POC Glucose 141 H 168 H 130 H 01/25/18 10:51 POC Glucose 141 H Phys Exam - Physical Examination Constitutional: NAD HEENT: PERRLA, moist MMs, sclera anicteric Neck: no JVD, supple Respiratory: no wheezing, no rales, no rhonchi Cardiovascular: RRR, no significant murmur, no rub Gastrointestinal: soft, non-tender, no distention, positive bowel sounds Musculoskeletal: no edema, pulses present Neurological: non-focal, normal sensation, moves all 4 limbs Psychiatric: normal affect, A&O x 3 Skin: no rash, normal turgor Dx/Plan (1) Acute kidney injury Code(s): N17.9 - ACUTE KIDNEY FAILURE, UNSPECIFIED Status: Resolved (2) Hypokalemia Code(s): E87.6 - HYPOKALEMIA Status: Acute (3) Hyponatremia Code(s): E87.1 - HYPO-OSMOLALITY AND HYPONATREMIA Status: Resolved (4) Hypotension Status: Resolved (5) Left lower lobe pneumonia Code(s): J18.1 - LOBAR PNEUMONIA, UNSPECIFIED ORGANISM Status: Acute (6) Pancytopenia due to chemotherapy Code(s): D61.810 - ANTINEOPLASTIC CHEMOTHERAPY INDUCED PANCYTOPENIA Status: Acute (7) 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 Code(s): C78.7 - SECONDARY MALIG NEOPLASM OF LIVER AND INTRAHEPATIC BILE DUCT; C80.1 - MALIGNANT (PRIMARY) NEOPLASM, UNSPECIFIED Status: Acute Comment: poorly differentiated carcinoma (8) Anxiety and depression Code(s): F41.9 - ANXIETY DISORDER, UNSPECIFIED; F32.9 - MAJOR DEPRESSIVE DISORDER, SINGLE EPISODE, UNSPECIFIED Status: Chronic (9) Dyslipidemia Code(s): E78.5 - HYPERLIPIDEMIA, UNSPECIFIED Status: Chronic (10) Hypertension Code(s): I10 - ESSENTIAL (PRIMARY) HYPERTENSION Status: Chronic - Plan cont current plan of care, continue antibiotics, PT/OT, rn social services * fleet enema today for constipation * medication reviewed as below * symptomatic treatment * will need rehab vs snu placement * continue PT * not ready for discharge until placement arranged. Review of Systems - Review of Systems Constitutional: weakness, malaise. negative: fever, chills, sweats, other Eyes: negative: Pain, Vision Change, Conjunctivae Inflammation, Eyelid Inflammation, Redness, Other ENT: negative: Ear Pain, Ear Discharge, Nose Pain, Nose Discharge, Nose Congestion, Mouth Pain, Mouth Swelling, Throat Pain, Throat Swelling, Other Respiratory: negative: Cough, Dry, Shortness of Breath, Hemoptysis, SOB with Excertion, Pleuritic Pain, Sputum, Wheezing Cardiovascular: negative: chest pain, palpitations, orthopnea, paroxysmal nocturnal dyspnea, edema, light headedness, other Gastrointestinal: Constipation. negative: Nausea, Vomiting, Abdominal Pain, Diarrhea, Melena, Hematochezia, Other Genitourinary: negative: Dysuria, Frequency, Incontinence, Hematuria, Retention , Other Musculoskeletal: negative: Neck Pain, Shoulder Pain, Arm Pain, Back Pain, Hand Pain, Leg Pain, Foot Pain, Other Skin: negative: Rash, Lesions, Donnell, Bruising, Other - Medications/Allergies Allergies/Adverse Reactions: Allergies Allergy/AdvReac Type Severity Reaction Status Date / Time ibuprofen Allergy Rash Verified 11/08/17 11:44 Medications: Current Medications Acetaminophen (Tylenol) 650 mg PO Q4H PRN PRN Reason: Headache/Fever/Mild Pain (1-3) Acetaminophen (Tylenol) 650 mg MS Q4H PRN PRN Reason: Headache/Fever/Mild Pain (1-3) Albuterol/Ipratropium (Duoneb) 3 ml NEB [id number] [facility] Last Admin: 01/26/18 07:22 Dose: 3 ml Albuterol/Ipratropium (Duoneb) 3 ml NEB Q4H PRN PRN Reason: SOB &/or Wheezing Artificial Tears (Tears Naturale) 2 drop EA EYE PRN PRN PRN Reason: Dry Eyes Betamethasone/Clotrimazole (Lotrisone Cream) 0 gm TOP BID [facility] Last Admin: 01/26/18 09:55 Dose: 1 applic Bisacodyl (Dulcolax) 10 mg PO DAILYPRN PRN PRN Reason: Constipation Last Admin: 01/23/18 15:46 Dose: 10 mg Bisoprolol Fumarate (Zebeta) 5 mg PO DAILY [facility] Last Admin: 01/26/18 09:40 Dose: 5 mg Cholecalciferol (Vitamin D3) 2,000 units PO DAILY [facility] Last Admin: 01/26/18 09:56 Dose: Not Given Clopidogrel Bisulfate (Plavix) 75 mg PO DAILY [facility] Last Admin: 01/26/18 09:40 Dose: 75 mg Dextrose/Water (Dextrose 50%) 25 gm SLOW IVP PRN PRN PRN Reason: Hypoglycemia Glucagon (Glucagon) 1 mg IM PRN PRN PRN Reason: Hypoglycemia Guaifenesin (Robitussin Sf) 200 mg PO Q4H PRN PRN Reason: Cough Hydralazine HCl (Apresoline) 10 mg SLOW IVP Q4H PRN PRN Reason: SBP > 180 and HR < 70 Dextrose/Water (D5w) 1,000 mls @ 0 mls/hr IV .Q0M PRN PRN Reason: Hypoglycemia Meropenem 1 gm/ Device 50 mls @ 100 mls/hr IVPB 1200,2359 [facility] Last Admin: 01/26/18 00:36 Dose: 50 mls Insulin Human Lispro (Humalog) 0 units SC .MILD SLIDING SCALE PRN PRN Reason: Mild Correctional Scale Last Admin: 01/23/18 17:40 Dose: 2 unit Insulin Human Lispro (Humalog) 0 units SC .BEDTIME SLIDING SC PRN PRN Reason: Bedtime Correctional Scale Loperamide HCl (Imodium) 2 mg PO PRN PRN PRN Reason: Diarrhea/Loose Stools Loratadine (Claritin) 10 mg PO DAILYPRN PRN PRN Reason: Sinus Symptoms Losartan Potassium (Cozaar) 50 mg PO DAILY [facility] Last Admin: 01/26/18 09:40 Dose: 50 mg Mineral Oil/White Petrolatum (Eucerin Cream) 0 gm TOP BIDPRN PRN PRN Reason: Dry Skin Montelukast Sodium (Singulair) 10 mg PO HS [facility] Last Admin: 01/25/18 21:00 Dose: Not Given Morphine Sulfate (Morphine) 2 mg SLOW IVP Q4H PRN PRN Reason: Moderate Pain (4-6) Last Admin: 01/25/18 10:00 Dose: 2 mg Ondansetron HCl (Zofran Odt) 4 mg PO Q6H PRN PRN Reason: Nausea/Vomiting Last Admin: 01/26/18 04:32 Dose: 4 mg Ondansetron HCl (Zofran) 4 mg IVP Q6H PRN PRN Reason: Nausea/Vomiting Last Admin: 01/26/18 09:45 Dose: 4 mg Pantoprazole Sodium (Protonix) 40 mg PO DAILY [facility] Last Admin: 01/26/18 09:40 Dose: 40 mg Polyethylene Glycol (Miralax) 17 gm PO DAILY [facility] Last Admin: 01/26/18 09:38 Dose: 17 gm Saccharomyces Boulardii (Florastor) 250 mg PO DAILY [facility] Last Admin: 01/26/18 09:40 Dose: 250 mg Senna/Docusate Sodium (Senokot S) 2 tab PO BID [facility] Last Admin: 01/26/18 09:40 Dose: 2 tab Sertraline HCl (Zoloft) 50 mg PO DAILY [facility] Last Admin: 01/26/18 09:40 Dose: 50 mg Simvastatin (Zocor) 40 mg PO [facility] Last Admin: 01/25/18 21:00 Dose: Not Given Sodium Biphosphate/Sodium Phosphate (Fleet Enema) 133 ml MS ONE [facility] Sodium Chloride (Flush - Normal Saline) 10 ml IVF Q12HR PRN PRN Reason: Saline Flush Last Admin: 01/25/18 10:04 Dose: 10 ml Sodium Chloride (Flush - Normal Saline) 10 ml IVF PRN PRN PRN Reason: Saline Flush Last Admin: 01/22/18 23:58 Dose: 10 ml Sodium Chloride ([place] Nasal [place] 0.65%) 0 ml EA NARE TID PRN PRN Reason: Nasal Congestion Tbo-Filgrastim (Granix) 480 mcg SC QAM [facility] Last Admin: 01/26/18 09:57 Dose: 480 mcg Throat Lozenges (Cepastat Lozenges) 1 nimisha PO Q2H PRN PRN Reason: Sore Throat Zolpidem Tartrate (Ambien) 5 mg PO HSPRN PRN PRN Reason: Insomnia Last Admin: 01/23/18 01:36 Dose: 5 mg
--- NOTE | 2018-01-26 11:40 | RAD ---
KUB: Date: 01-26-18 Comparison: None. History: Constipation, nausea, abdominal pain. FINDINGS: Supine imaging limits assessment for free intraperitoneal air and small bowel obstruction. The bowel gas pattern appears nonobstructed. IMPRESSION: Nonobstructed bowel gas pattern. POS: ARIAN
[2018-01-26] MEDS: Simvastatin 40 MG TAB PO SCH (21:00)
[2018-01-26] MEDS: Montelukast Sodium 10 mg Tablet PO SCH (21:00)
[2018-01-27] MEDS: Ondansetron PF 4 MG/2 ML Vial IVP PRN ×3 (09:26→21:20)
[2018-01-27] MEDS: Clotrimazole/Betamethasone Cream 45 GM TUBE TOP SCH ×2 (09:28→21:20)
--- NOTE | 2018-01-27 10:36 | PDOC.PN ---
- Subjective Encounter Start Date: 01/27/18 Encounter Start Time: 07:00 pt is so weak, she has not able to do PT yet, no fever she had BM yesterday - Objective Resuscitation Status - Order Detail: 01/21/18 21:48 Resuscitation Status Routine Resuscitation Status: FULL: Full Resuscitation MAR Reviewed: Yes Vital Signs & Weight: Vital Signs (12 hours) Temp Pulse Resp BP Pulse Ox 01/27/18 08:00 97.4 F L 80 20 118/58 L 91 L 01/27/18 06:22 72 16 92 L 01/27/18 00:00 118/57 L 01/26/18 23:23 78 16 90 L Weight Admit Weight 180 lb 1 oz Weight 180 lb 1 oz I&O: 01/26/18 01/27/18 01/28/18 06:59 06:59 06:59 Intake Total 1520 1200 Output Total 1000 Balance 520 1200 Result Diagrams: 01/26/18 08:39 01/26/18 08:39 Additional Labs: Accuchecks 01/27/18 01/26/18 01/26/18 05:16 20:19 15:52 POC Glucose 152 H 153 H 162 H 01/26/18 11:37 POC Glucose 185 H Phys Exam - Physical Examination Constitutional: NAD HEENT: PERRLA, moist MMs, sclera anicteric Neck: no JVD, supple Respiratory: no wheezing, no rales, no rhonchi Cardiovascular: RRR, no significant murmur, no rub Gastrointestinal: soft, non-tender, no distention, positive bowel sounds Musculoskeletal: no edema, pulses present Neurological: non-focal, normal sensation Lymphatic: no nodes Psychiatric: normal affect, A&O x 3 Skin: no rash, normal turgor Dx/Plan (1) Acute kidney injury Code(s): N17.9 - ACUTE KIDNEY FAILURE, UNSPECIFIED Status: Resolved (2) Hypokalemia Code(s): E87.6 - HYPOKALEMIA Status: Acute (3) Hyponatremia Code(s): E87.1 - HYPO-OSMOLALITY AND HYPONATREMIA Status: Resolved (4) Hypotension Status: Resolved (5) Left lower lobe pneumonia Code(s): J18.1 - LOBAR PNEUMONIA, UNSPECIFIED ORGANISM Status: Acute (6) Pancytopenia due to chemotherapy Code(s): D61.810 - ANTINEOPLASTIC CHEMOTHERAPY INDUCED PANCYTOPENIA Status: Acute (7) 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 Code(s): C78.7 - SECONDARY MALIG NEOPLASM OF LIVER AND INTRAHEPATIC BILE DUCT; C80.1 - MALIGNANT (PRIMARY) NEOPLASM, UNSPECIFIED Status: Acute Comment: poorly differentiated carcinoma (8) Anxiety and depression Code(s): F41.9 - ANXIETY DISORDER, UNSPECIFIED; F32.9 - MAJOR DEPRESSIVE DISORDER, SINGLE EPISODE, UNSPECIFIED Status: Chronic (9) Dyslipidemia Code(s): E78.5 - HYPERLIPIDEMIA, UNSPECIFIED Status: Chronic (10) Hypertension Code(s): I10 - ESSENTIAL (PRIMARY) HYPERTENSION Status: Chronic (11) Physical deconditioning Code(s): R53.81 - OTHER MALAISE Status: Acute - Plan cont current plan of care, continue antibiotics, PT/OT, social staff worker * one cycle of chemo made her so weak, she is still very weak, unsure she will tolerate future chemotherapy * will consult palliative care * she is at high risk for readmission if she is planned for intermittent chemotherapy * prognosis is poor * continue current antibiotics while in hospital * medication reviewed as below * symptomatic treatment. Review of Systems - Review of Systems Constitutional: weakness, malaise. negative: fever, chills, sweats, other ENT: negative: Ear Pain, Ear Discharge, Nose Pain, Nose Discharge, Nose Congestion, Mouth Pain, Mouth Swelling, Throat Pain, Throat Swelling, Other Respiratory: negative: Cough, Dry, Shortness of Breath, Hemoptysis, SOB with Excertion, Pleuritic Pain, Sputum, Wheezing Cardiovascular: negative: chest pain, palpitations, orthopnea, paroxysmal nocturnal dyspnea, edema, light headedness, other Gastrointestinal: negative: Nausea, Vomiting, Abdominal Pain, Diarrhea, Constipation, Melena, Hematochezia, Other Genitourinary: negative: Dysuria, Frequency, Incontinence, Hematuria, Retention , Other Musculoskeletal: negative: Neck Pain, Shoulder Pain, Arm Pain, Back Pain, Hand Pain, Leg Pain, Foot Pain, Other Skin: negative: Rash, Lesions, Donnell, Bruising, Other - Medications/Allergies Allergies/Adverse Reactions: Allergies Allergy/AdvReac Type Severity Reaction Status Date / Time ibuprofen Allergy Rash Verified 11/08/17 11:44 Medications: Current Medications Acetaminophen (Tylenol) 650 mg PO Q4H PRN PRN Reason: Headache/Fever/Mild Pain (1-3) Acetaminophen (Tylenol) 650 mg [place] Q4H PRN PRN Reason: Headache/Fever/Mild Pain (1-3) Albuterol/Ipratropium (Duoneb) 3 ml NEB [id number] [facility] Last Admin: 01/27/18 06:22 Dose: 3 ml Albuterol/Ipratropium (Duoneb) 3 ml NEB Q4H PRN PRN Reason: SOB &/or Wheezing Artificial Tears (Tears Naturale) 2 drop EA EYE PRN PRN PRN Reason: Dry Eyes Betamethasone/Clotrimazole (Lotrisone Cream) 0 gm TOP BID [facility] Last Admin: 01/27/18 09:28 Dose: 1 applic Bisacodyl (Dulcolax) 10 mg PO DAILYPRN PRN PRN Reason: Constipation Last Admin: 01/23/18 15:46 Dose: 10 mg Bisoprolol Fumarate (Zebeta) 5 mg PO DAILY [facility] Last Admin: 01/26/18 09:40 Dose: 5 mg Cholecalciferol (Vitamin D3) 2,000 units PO DAILY [facility] Last Admin: 01/26/18 09:56 Dose: Not Given Clopidogrel Bisulfate (Plavix) 75 mg PO DAILY [facility] Last Admin: 01/26/18 09:40 Dose: 75 mg Dextrose/Water (Dextrose 50%) 25 gm SLOW IVP PRN PRN PRN Reason: Hypoglycemia Glucagon (Glucagon) 1 mg IM PRN PRN PRN Reason: Hypoglycemia Guaifenesin (Robitussin Sf) 200 mg PO Q4H PRN PRN Reason: Cough Hydralazine HCl (Apresoline) 10 mg SLOW IVP Q4H PRN PRN Reason: SBP > 180 and HR < 70 Dextrose/Water (D5w) 1,000 mls @ 0 mls/hr IV .Q0M PRN PRN Reason: Hypoglycemia Meropenem 1 gm/ Device 50 mls @ 100 mls/hr IVPB 1200,2359 [facility] Last Admin: 01/26/18 23:54 Dose: 50 mls Insulin Human Lispro (Humalog) 0 units SC .MILD SLIDING SCALE PRN PRN Reason: Mild Correctional Scale Last Admin: 01/23/18 17:40 Dose: 2 unit Insulin Human Lispro (Humalog) 0 units SC .BEDTIME SLIDING SC PRN PRN Reason: Bedtime Correctional Scale Loperamide HCl (Imodium) 2 mg PO PRN PRN PRN Reason: Diarrhea/Loose Stools Loratadine (Claritin) 10 mg PO DAILYPRN PRN PRN Reason: Sinus Symptoms Losartan Potassium (Cozaar) 50 mg PO DAILY [facility] Last Admin: 01/26/18 09:40 Dose: 50 mg Mineral Oil/White Petrolatum (Eucerin Cream) 0 gm TOP BIDPRN PRN PRN Reason: Dry Skin Montelukast Sodium (Singulair) 10 mg PO HS [facility] Last Admin: 01/26/18 21:00 Dose: Not Given Morphine Sulfate (Morphine) 2 mg SLOW IVP Q4H PRN PRN Reason: Moderate Pain (4-6) Last Admin: 01/25/18 10:00 Dose: 2 mg Ondansetron HCl (Zofran Odt) 4 mg PO Q6H PRN PRN Reason: Nausea/Vomiting Last Admin: 01/26/18 04:32 Dose: 4 mg Ondansetron HCl (Zofran) 4 mg IVP Q6H PRN PRN Reason: Nausea/Vomiting Last Admin: 01/27/18 09:26 Dose: 4 mg Pantoprazole Sodium (Protonix) 40 mg PO DAILY [facility] Last Admin: 01/26/18 09:40 Dose: 40 mg Polyethylene Glycol (Miralax) 17 gm PO DAILY [facility] Last Admin: 01/26/18 09:38 Dose: 17 gm Saccharomyces Boulardii (Florastor) 250 mg PO DAILY [facility] Last Admin: 01/26/18 09:40 Dose: 250 mg Senna/Docusate Sodium (Senokot S) 2 tab PO BID [facility] Last Admin: 01/26/18 21:00 Dose: Not Given Sertraline HCl (Zoloft) 50 mg PO DAILY [facility] Last Admin: 01/26/18 09:40 Dose: 50 mg Simvastatin (Zocor) 40 mg PO HS [facility] Last Admin: 01/26/18 21:00 Dose: 40 mg Sodium Chloride (Flush - Normal Saline) 10 ml IVF Q12HR PRN PRN Reason: Saline Flush Last Admin: 01/26/18 21:01 Dose: 10 ml Sodium Chloride (Flush - Normal Saline) 10 ml IVF PRN PRN PRN Reason: Saline Flush Last Admin: 01/22/18 23:58 Dose: 10 ml Sodium Chloride ([place] Nasal [place] 0.65%) 0 ml EA NARE TID PRN PRN Reason: Nasal Congestion Throat Lozenges (Cepastat Lozenges) 1 nimisha PO Q2H PRN PRN Reason: Sore Throat Zolpidem Tartrate (Ambien) 5 mg PO HSPRN PRN PRN Reason: Insomnia Last Admin: 01/23/18 01:36 Dose: 5 mg
[2018-01-27] MEDS: Bisoprolol Fumarate 5 MG TAB PO SCH (11:19)
[2018-01-27] MEDS: Clopidogrel Bisulfate 75 MG TAB PO SCH (11:19)
[2018-01-27] MEDS: Senokot S 8.6-50 MG TAB PO SCH ×2 (11:20→21:20)
[2018-01-27] MEDS: Losartan 25 MG TAB PO SCH (11:20)
[2018-01-27] MEDS: Saccharomyces boulardii 250 MG CAP PO SCH (11:20)
[2018-01-27] MEDS: Polyethylene Glycol 3350 17 GM Packet PO SCH (11:20)
[2018-01-27] MEDS: MEROPENEM 1 GM/50 ML 1 GM in Premix Bag 1 BAG IVPB SCH (11:27)
[2018-01-27] MEDS: Acetaminophen 325 MG TAB PO PRN (14:54)
[2018-01-27] MEDS: Montelukast Sodium 10 mg Tablet PO SCH (21:20)
[2018-01-27] MEDS: Simvastatin 40 MG TAB PO SCH (21:20)
[2018-01-28] MEDS: MEROPENEM 1 GM/50 ML 1 GM in Premix Bag 1 BAG IVPB SCH ×3 (00:03→23:56)
[2018-01-28] MEDS: Ondansetron PF 4 MG/2 ML Vial IVP PRN ×2 (03:19→08:39)
[2018-01-28 07:17] LABS: ALT (SGPT) 13 U/L (8-55); AST (SGOT) 37 U/L (5-34); Albumin 2.7 g/dL (3.4-4.8); Alkaline Phosphatase 207 U/L (40-150); Anion Gap 14 mmol/L (10-20); BUN (Urea Nitrogen) 25 mg/dL (9.8-20.1); Bilirubin, Total 1.4 mg/dL (0.2-1.2); Calc. Creatinine Clearance 75 mL/min (70-130); Calcium 8.8 mg/dL (7.8-10.44); Carbon Dioxide 23 mmol/L (23-31); Chloride 107 mmol/L (98-107); Estimated GFR-MDRD 69; Globulin 2.8 g/dL (2.4-3.5); Glucose 158 mg/dL (83-110); Potassium 3.8 mmol/L (3.5-5.1); Protein, Total 5.5 g/dL (6.0-8.3); Sodium 140 mmol/L (136-145)
[2018-01-28 08:35] LABS: Anisocytosis MODERATE=16-30 cells (100X) (0-5/hpf); Band 22 % (5-11); Hemoglobin 10.6 g/dL (12.0-16.0); Lymphocytes 8 % (21-51); MDiff Complete? YES; Macrocytosis SLIGHT = 6-15 cells (100X) (0-5/hpf); Mean Corpuscular Hemoglobin 27.7 pg (27.0-31.0); Mean Corpuscular Volume 86.4 fL (78.0-98.0); Mean Platelet Volume 11.6 fL (7.4-10.4); Metamyelocyte 7 % (0-0); Monocytes 2 % (0-10); Myelocyte 3 % (0-0); Neutrophil 58 % (42-75); Nucleated RBC 6 % (0); PLT Morphology Comment Appears Decreased; Platelet Count 64 thou/uL (130-400); Polychromasia MODERATE = 3-4 cells (100X) (0-2/hpf); RBC Distribution Width 16.5 % (11.5-14.5); Red Blood Cell (RBC) Count 3.82 mill/uL (4.20-5.40); Toxic Granulation SLIGHT; White Blood Cell (WBC) Count 20.8 thou/uL (4.8-10.8)
[2018-01-28] MEDS: Polyethylene Glycol 3350 17 GM Packet PO SCH ×2 (08:36→21:00)
[2018-01-28] MEDS: Clotrimazole/Betamethasone Cream 45 GM TUBE TOP SCH ×2 (08:37→21:00)
[2018-01-28] MEDS ORDERED: Metoclopramide HCl 10 MG/2 ML VIAL IVP PRN (09:17)
--- NOTE | 2018-01-28 09:17 | PDOC.PN ---
- Subjective Encounter Start Date: 01/28/18 Encounter Start Time: 07:00 Patient seen and examined. has nausea, has constipation, No overnight events has poor po intake - Objective Resuscitation Status - Order Detail: 01/21/18 21:48 Resuscitation Status Routine Resuscitation Status: FULL: Full Resuscitation MAR Reviewed: Yes Vital Signs & Weight: Vital Signs (12 hours) Temp Pulse Resp BP Pulse Ox 01/28/18 08:00 97.4 F L 79 18 100/51 L 95 01/28/18 06:32 93 L 01/28/18 06:31 82 16 01/28/18 02:00 93 L Weight Admit Weight 180 lb 1 oz Weight 180 lb 1 oz I&O: 01/27/18 01/28/18 01/29/18 06:59 06:59 06:59 Intake Total 1200 1690 Output Total 325 Balance 1200 1365 Result Diagrams: 01/28/18 06:35 01/28/18 06:35 Additional Labs: Accuchecks 01/28/18 01/27/18 01/27/18 06:42 19:54 15:45 POC Glucose 148 H 163 H 181 H 01/27/18 10:22 POC Glucose 181 H Phys Exam - Physical Examination Constitutional: NAD HEENT: PERRLA, moist MMs, sclera anicteric Neck: no JVD, supple Respiratory: no wheezing, no rales, no rhonchi Cardiovascular: RRR, no significant murmur, no rub Gastrointestinal: soft, non-tender, no distention, positive bowel sounds Musculoskeletal: no edema, pulses present Neurological: non-focal, normal sensation, moves all 4 limbs Lymphatic: no nodes Psychiatric: normal affect, A&O x 3 Skin: no rash, normal turgor Dx/Plan (1) Acute kidney injury Code(s): N17.9 - ACUTE KIDNEY FAILURE, UNSPECIFIED Status: Resolved (2) Hypokalemia Code(s): E87.6 - HYPOKALEMIA Status: Acute (3) Hyponatremia Code(s): E87.1 - HYPO-OSMOLALITY AND HYPONATREMIA Status: Resolved (4) Hypotension Status: Resolved (5) Left lower lobe pneumonia Code(s): J18.1 - LOBAR PNEUMONIA, UNSPECIFIED ORGANISM Status: Acute (6) Pancytopenia due to chemotherapy Code(s): D61.810 - ANTINEOPLASTIC CHEMOTHERAPY INDUCED PANCYTOPENIA Status: Acute (7) 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 Code(s): C78.7 - SECONDARY MALIG NEOPLASM OF LIVER AND INTRAHEPATIC BILE DUCT; C80.1 - MALIGNANT (PRIMARY) NEOPLASM, UNSPECIFIED Status: Acute Comment: poorly differentiated carcinoma (8) Anxiety and depression Code(s): F41.9 - ANXIETY DISORDER, UNSPECIFIED; F32.9 - MAJOR DEPRESSIVE DISORDER, SINGLE EPISODE, UNSPECIFIED Status: Chronic (9) Dyslipidemia Code(s): E78.5 - HYPERLIPIDEMIA, UNSPECIFIED Status: Chronic (10) Hypertension Code(s): I10 - ESSENTIAL (PRIMARY) HYPERTENSION Status: Chronic (11) Physical deconditioning Code(s): R53.81 - OTHER MALAISE Status: Acute - Plan cont current plan of care, continue antibiotics * continue meropenam * add reglan for nausea * change miralax bid * give fleet enema * start IVF * medication reviewed as below * symptomatic treatment. Review of Systems - Review of Systems Constitutional: weakness. negative: fever, chills, sweats, malaise, other ENT: negative: Ear Pain, Ear Discharge, Nose Pain, Nose Discharge, Nose Congestion, Mouth Pain, Mouth Swelling, Throat Pain, Throat Swelling, Other Respiratory: negative: Cough, Dry, Shortness of Breath, Hemoptysis, SOB with Excertion, Pleuritic Pain, Sputum, Wheezing Cardiovascular: negative: chest pain, palpitations, orthopnea, paroxysmal nocturnal dyspnea, edema, light headedness, other Gastrointestinal: Nausea, Constipation. negative: Vomiting, Abdominal Pain, Diarrhea, Melena, Hematochezia, Other Genitourinary: negative: Dysuria, Frequency, Incontinence, Hematuria, Retention , Other Musculoskeletal: negative: Neck Pain, Shoulder Pain, Arm Pain, Back Pain, Hand Pain, Leg Pain, Foot Pain, Other Skin: negative: Rash, Lesions, Donnell, Bruising, Other - Medications/Allergies Allergies/Adverse Reactions: Allergies Allergy/AdvReac Type Severity Reaction Status Date / Time ibuprofen Allergy Rash Verified 11/08/17 11:44 Medications: Current Medications Acetaminophen (Tylenol) 650 mg PO Q4H PRN PRN Reason: Headache/Fever/Mild Pain (1-3) Last Admin: 01/27/18 14:54 Dose: 650 mg Acetaminophen (Tylenol) 650 mg OR Q4H PRN PRN Reason: Headache/Fever/Mild Pain (1-3) Albuterol/Ipratropium (Duoneb) 3 ml NEB [id number] [facility] Last Admin: 01/28/18 06:31 Dose: 3 ml Albuterol/Ipratropium (Duoneb) 3 ml NEB Q4H PRN PRN Reason: SOB &/or Wheezing Artificial Tears (Tears Naturale) 2 drop EA EYE PRN PRN PRN Reason: Dry Eyes Betamethasone/Clotrimazole (Lotrisone Cream) 0 gm TOP BID [facility] Last Admin: 01/28/18 08:37 Dose: 1 applic Bisacodyl (Dulcolax) 10 mg PO DAILYPRN PRN PRN Reason: Constipation Last Admin: 01/23/18 15:46 Dose: 10 mg Bisoprolol Fumarate (Zebeta) 5 mg PO DAILY [facility] Last Admin: 01/27/18 11:19 Dose: Not Given Cholecalciferol (Vitamin D3) 2,000 units PO DAILY [facility] Last Admin: 01/27/18 11:19 Dose: Not Given Clopidogrel Bisulfate (Plavix) 75 mg PO DAILY [facility] Last Admin: 01/27/18 11:19 Dose: Not Given Dextrose/Water (Dextrose 50%) 25 gm SLOW IVP PRN PRN PRN Reason: Hypoglycemia Glucagon (Glucagon) 1 mg IM PRN PRN PRN Reason: Hypoglycemia Guaifenesin (Robitussin Sf) 200 mg PO Q4H PRN PRN Reason: Cough Hydralazine HCl (Apresoline) 10 mg SLOW IVP Q4H PRN PRN Reason: SBP > 180 and HR < 70 Dextrose/Water (D5w) 1,000 mls @ 0 mls/hr IV .Q0M PRN PRN Reason: Hypoglycemia Meropenem 1 gm/ Device 50 mls @ 100 mls/hr IVPB 1200,2359 [facility] Last Admin: 01/28/18 00:03 Dose: 50 mls Insulin Human Lispro (Humalog) 0 units SC .MILD SLIDING SCALE PRN PRN Reason: Mild Correctional Scale Last Admin: 01/23/18 17:40 Dose: 2 unit Insulin Human Lispro (Humalog) 0 units SC .BEDTIME SLIDING SC PRN PRN Reason: Bedtime Correctional Scale Loperamide HCl (Imodium) 2 mg PO PRN PRN PRN Reason: Diarrhea/Loose Stools Loratadine (Claritin) 10 mg PO DAILYPRN PRN PRN Reason: Sinus Symptoms Losartan Potassium (Cozaar) 50 mg PO DAILY [facility] Last Admin: 01/27/18 11:20 Dose: Not Given Mineral Oil/White Petrolatum (Eucerin Cream) 0 gm TOP BIDPRN PRN PRN Reason: Dry Skin Montelukast Sodium (Singulair) 10 mg PO [facility] Last Admin: 01/27/18 21:20 Dose: Not Given Morphine Sulfate (Morphine) 2 mg SLOW IVP Q4H PRN PRN Reason: Moderate Pain (4-6) Last Admin: 01/25/18 10:00 Dose: 2 mg Ondansetron HCl (Zofran Odt) 4 mg PO Q6H PRN PRN Reason: Nausea/Vomiting Last Admin: 01/26/18 04:32 Dose: 4 mg Ondansetron HCl (Zofran) 4 mg IVP Q6H PRN PRN Reason: Nausea/Vomiting Last Admin: 01/28/18 08:39 Dose: 4 mg Pantoprazole Sodium (Protonix) 40 mg PO DAILY [facility] Last Admin: 01/27/18 11:20 Dose: Not Given Polyethylene Glycol (Miralax) 17 gm PO DAILY [facility] Last Admin: 01/28/18 08:36 Dose: 17 gm Saccharomyces Boulardii (Florastor) 250 mg PO DAILY [facility] Last Admin: 01/27/18 11:20 Dose: Not Given Senna/Docusate Sodium (Senokot S) 2 tab PO BID [facility] Last Admin: 01/27/18 21:20 Dose: Not Given Sertraline HCl (Zoloft) 50 mg PO DAILY [facility] Last Admin: 01/27/18 11:20 Dose: Not Given Simvastatin (Zocor) 40 mg PO HS [facility] Last Admin: 01/27/18 21:20 Dose: Not Given Sodium Chloride (Flush - Normal Saline) 10 ml IVF Q12HR PRN PRN Reason: Saline Flush Last Admin: 01/27/18 21:20 Dose: 10 ml Sodium Chloride (Flush - Normal Saline) 10 ml IVF PRN PRN PRN Reason: Saline Flush Last Admin: 01/28/18 03:19 Dose: 10 ml Sodium Chloride ([place] Nasal [place] 0.65%) 0 ml EA NARE TID PRN PRN Reason: Nasal Congestion Throat Lozenges (Cepastat Lozenges) 1 nimisha PO Q2H PRN PRN Reason: Sore Throat Zolpidem Tartrate (Ambien) 5 mg PO HSPRN PRN PRN Reason: Insomnia Last Admin: 01/23/18 01:36 Dose: 5 mg
[2018-01-28] MEDS ORDERED: Fleet Enema 133 ML BOT PR SCH (10:45)
[2018-01-28] MEDS: Promethazine HCl 25 MG/ML VIAL IM/IV PRN (11:20)
[2018-01-28] MEDS: Senokot S 8.6-50 MG TAB PO SCH ×2 (11:22→21:00)
[2018-01-28] MEDS: D5 0.9% NS w/ 20 mEq KCl 1,000 ML IV SCH ×3 (11:22→22:28)
[2018-01-28] MEDS: Saccharomyces boulardii 250 MG CAP PO SCH (11:23)
[2018-01-28] MEDS: Losartan 25 MG TAB PO SCH (11:24)
[2018-01-28] MEDS: Clopidogrel Bisulfate 75 MG TAB PO SCH (11:25)
[2018-01-28] MEDS: Bisoprolol Fumarate 5 MG TAB PO SCH (11:25)
[2018-01-28] MEDS: Acetaminophen 325 MG TAB PO PRN (13:01)
[2018-01-28] MEDS: Metoclopramide HCl 10 MG/2 ML VIAL IVP SCH ×3 (13:01→21:00)
[2018-01-28] MEDS: HumaLOG 300 UNITS/3 ML VIAL SC PRN (17:18)
[2018-01-28] MEDS: Simvastatin 40 MG TAB PO SCH (21:00)
[2018-01-28] MEDS: Montelukast Sodium 10 mg Tablet PO SCH (22:35)
[2018-01-29] MEDS: Morphine 2 MG/ML SYRINGE SLOW IVP PRN ×2 (00:30→08:55)
[2018-01-29] MEDS: Promethazine HCl 25 MG/ML VIAL IM/IV PRN (00:31)
[2018-01-29] MEDS: D5 0.9% NS w/ 20 mEq KCl 1,000 ML IV SCH ×3 (05:45→19:32)
[2018-01-29] MEDS: Metoclopramide HCl 10 MG/2 ML VIAL IVP SCH ×6 (08:55→23:13)
[2018-01-29] MEDS: Saccharomyces boulardii 250 MG CAP PO SCH (08:58)
--- NOTE | 2018-01-29 08:58 | PDOC.PN ---
- Subjective Encounter Start Date: 01/29/18 Encounter Start Time: 08:15 Patient seen and examined. No new complaints. No overnight events had good BM, has nausea, has weakness - Objective Resuscitation Status - Order Detail: 01/21/18 21:48 Resuscitation Status Routine Resuscitation Status: FULL: Full Resuscitation MAR Reviewed: Yes Vital Signs & Weight: Vital Signs (12 hours) Temp Pulse Resp BP Pulse Ox 01/29/18 08:00 97.5 F L 84 18 104/57 L 96 01/29/18 06:22 83 16 95 01/29/18 00:14 94 L Weight Admit Weight 180 lb 1 oz Weight 180 lb 1 oz I&O: 01/28/18 01/29/18 01/30/18 06:59 06:59 06:59 Intake Total 1690 1940 Output Total 325 Balance 1365 1940 Result Diagrams: 01/28/18 06:35 01/28/18 06:35 Additional Labs: Accuchecks 01/29/18 01/28/18 01/28/18 05:37 22:05 16:12 POC Glucose 176 H 131 H 219 H 01/28/18 11:31 POC Glucose 185 H Phys Exam - Physical Examination Constitutional: NAD HEENT: PERRLA, moist MMs, sclera anicteric Neck: no JVD, supple Respiratory: no wheezing, no rales, no rhonchi Cardiovascular: RRR, no significant murmur, no rub Gastrointestinal: soft, non-tender, no distention, positive bowel sounds Musculoskeletal: no edema, pulses present Neurological: non-focal, normal sensation Lymphatic: no nodes Psychiatric: normal affect, A&O x 3 Skin: no rash, normal turgor Dx/Plan (1) Acute kidney injury Code(s): N17.9 - ACUTE KIDNEY FAILURE, UNSPECIFIED Status: Resolved (2) Hypokalemia Code(s): E87.6 - HYPOKALEMIA Status: Acute (3) Hyponatremia Code(s): E87.1 - HYPO-OSMOLALITY AND HYPONATREMIA Status: Resolved (4) Hypotension Status: Resolved (5) Left lower lobe pneumonia Code(s): J18.1 - LOBAR PNEUMONIA, UNSPECIFIED ORGANISM Status: Acute (6) Pancytopenia due to chemotherapy Code(s): D61.810 - ANTINEOPLASTIC CHEMOTHERAPY INDUCED PANCYTOPENIA Status: Acute (7) 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 Code(s): C78.7 - SECONDARY MALIG NEOPLASM OF LIVER AND INTRAHEPATIC BILE DUCT; C80.1 - MALIGNANT (PRIMARY) NEOPLASM, UNSPECIFIED Status: Acute Comment: poorly differentiated carcinoma (8) Anxiety and depression Code(s): F41.9 - ANXIETY DISORDER, UNSPECIFIED; F32.9 - MAJOR DEPRESSIVE DISORDER, SINGLE EPISODE, UNSPECIFIED Status: Chronic (9) Dyslipidemia Code(s): E78.5 - HYPERLIPIDEMIA, UNSPECIFIED Status: Chronic (10) Hypertension Code(s): I10 - ESSENTIAL (PRIMARY) HYPERTENSION Status: Chronic (11) Physical deconditioning Code(s): R53.81 - OTHER MALAISE Status: Acute - Plan cont current plan of care, continue antibiotics, 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 Review of Systems - Review of Systems Constitutional: weakness. negative: fever, chills, sweats, malaise, other Respiratory: negative: Cough, Dry, Shortness of Breath, Hemoptysis, SOB with Excertion, Pleuritic Pain, Sputum, Wheezing Cardiovascular: negative: chest pain, palpitations, orthopnea, paroxysmal nocturnal dyspnea, edema, light headedness, other Gastrointestinal: Nausea. negative: Vomiting, Abdominal Pain, Diarrhea, Constipation, Melena, Hematochezia, Other Genitourinary: negative: Dysuria, Frequency, Incontinence, Hematuria, Retention , Other Musculoskeletal: negative: Neck Pain, Shoulder Pain, Arm Pain, Back Pain, Hand Pain, Leg Pain, Foot Pain, Other Skin: negative: Rash, Lesions, Donnell, Bruising, Other - Medications/Allergies Allergies/Adverse Reactions: Allergies Allergy/AdvReac Type Severity Reaction Status Date / Time ibuprofen Allergy Rash Verified 11/08/17 11:44 Medications: Current Medications Acetaminophen (Tylenol) 650 mg PO Q4H PRN PRN Reason: Headache/Fever/Mild Pain (1-3) Last Admin: 01/28/18 13:01 Dose: 650 mg Albuterol/Ipratropium (Duoneb) 3 ml NEB [id number] [facility] Last Admin: 01/29/18 06:22 Dose: 3 ml Albuterol/Ipratropium (Duoneb) 3 ml NEB Q4H PRN PRN Reason: SOB &/or Wheezing Artificial Tears (Tears Naturale) 2 drop EA EYE PRN PRN PRN Reason: Dry Eyes Betamethasone/Clotrimazole (Lotrisone Cream) 0 gm TOP BID [facility] Last Admin: 01/28/18 21:00 Dose: Not Given Bisacodyl (Dulcolax) 10 mg PO DAILYPRN PRN PRN Reason: Constipation Last Admin: 01/23/18 15:46 Dose: 10 mg Bisoprolol Fumarate (Zebeta) 5 mg PO DAILY [facility] Last Admin: 01/28/18 11:25 Dose: Not Given Cholecalciferol (Vitamin D3) 2,000 units PO DAILY [facility] Last Admin: 01/28/18 11:25 Dose: Not Given Clopidogrel Bisulfate (Plavix) 75 mg PO DAILY [facility] Last Admin: 01/28/18 11:25 Dose: Not Given Dextrose/Water (Dextrose 50%) 25 gm SLOW IVP PRN PRN PRN Reason: Hypoglycemia Glucagon (Glucagon) 1 mg IM PRN PRN PRN Reason: Hypoglycemia Guaifenesin (Robitussin Sf) 200 mg PO Q4H PRN PRN Reason: Cough Hydralazine HCl (Apresoline) 10 mg SLOW IVP Q4H PRN PRN Reason: SBP > 180 and HR < 70 Dextrose/Water (D5w) 1,000 mls @ 0 mls/hr IV .Q0M PRN PRN Reason: Hypoglycemia Meropenem 1 gm/ Device 50 mls @ 100 mls/hr IVPB 1200,2359 [facility] Last Admin: 01/28/18 23:56 Dose: 50 mls Potassium Chloride/Dextrose/Sod Cl (D5 0.9% Ns W/ 20 Meq Kcl) 1,000 mls @ 100 mls/hr IV .Q10H [facility] Last Admin: 01/29/18 05:45 Dose: Not Given Insulin Human Lispro (Humalog) 0 units SC .MILD SLIDING SCALE PRN PRN Reason: Mild Correctional Scale Last Admin: 01/28/18 17:18 Dose: 3 unit Insulin Human Lispro (Humalog) 0 units SC .BEDTIME SLIDING SC PRN PRN Reason: Bedtime Correctional Scale Loperamide HCl (Imodium) 2 mg PO PRN PRN PRN Reason: Diarrhea/Loose Stools Loratadine (Claritin) 10 mg PO DAILYPRN PRN PRN Reason: Sinus Symptoms Losartan Potassium (Cozaar) 50 mg PO DAILY [facility] Last Admin: 01/28/18 11:24 Dose: Not Given Metoclopramide HCl (Reglan) 10 mg IVP QID [facility] Last Admin: 01/28/18 21:00 Dose: Not Given Mineral Oil/White Petrolatum (Eucerin Cream) 0 gm TOP BIDPRN PRN PRN Reason: Dry Skin Montelukast Sodium (Singulair) 10 mg PO HS [facility] Last Admin: 01/28/18 22:35 Dose: Not Given Morphine Sulfate (Morphine) 2 mg SLOW IVP Q4H PRN PRN Reason: Moderate Pain (4-6) Last Admin: 01/29/18 00:30 Dose: 2 mg Ondansetron HCl (Zofran Odt) 4 mg PO Q6H PRN PRN Reason: Nausea/Vomiting Last Admin: 01/26/18 04:32 Dose: 4 mg Ondansetron HCl (Zofran) 4 mg IVP Q6H PRN PRN Reason: Nausea/Vomiting Last Admin: 01/28/18 08:39 Dose: 4 mg Pantoprazole Sodium (Protonix) 40 mg PO DAILY [facility] Last Admin: 01/28/18 11:23 Dose: Not Given Polyethylene Glycol (Miralax) 17 gm PO BID [facility] Last Admin: 01/28/18 21:00 Dose: Not Given Promethazine HCl (Phenergan) 12.5 mg IM/IV Q6H PRN PRN Reason: Nausea/Vomiting Last Admin: 01/29/18 00:31 Dose: 12.5 mg Saccharomyces Boulardii (Florastor) 250 mg PO DAILY [facility] Last Admin: 01/28/18 11:23 Dose: Not Given Senna/Docusate Sodium (Senokot S) 2 tab PO BID [facility] Last Admin: 01/28/18 21:00 Dose: Not Given Sertraline HCl (Zoloft) 50 mg PO DAILY [facility] Last Admin: 01/28/18 11:22 Dose: Not Given Simvastatin (Zocor) 40 mg PO HS [facility] Last Admin: 01/28/18 21:00 Dose: Not Given Sodium Chloride (Flush - Normal Saline) 10 ml IVF Q12HR PRN PRN Reason: Saline Flush Last Admin: 01/27/18 21:20 Dose: 10 ml Sodium Chloride (Flush - Normal Saline) 10 ml IVF PRN PRN PRN Reason: Saline Flush Last Admin: 01/28/18 03:19 Dose: 10 ml Sodium Chloride ([place] Nasal [place] 0.65%) 0 ml EA NARE TID PRN PRN Reason: Nasal Congestion Throat Lozenges (Cepastat Lozenges) 1 nimisha PO Q2H PRN PRN Reason: Sore Throat Zolpidem Tartrate (Ambien) 5 mg PO HSPRN PRN PRN Reason: Insomnia Last Admin: 01/23/18 01:36 Dose: 5 mg
[2018-01-29] MEDS: Senokot S 8.6-50 MG TAB PO SCH ×2 (09:01→21:00)
[2018-01-29] MEDS: Bisoprolol Fumarate 5 MG TAB PO SCH (09:01)
[2018-01-29] MEDS: Losartan 25 MG TAB PO SCH (09:01)
[2018-01-29] MEDS: Clopidogrel Bisulfate 75 MG TAB PO SCH (09:02)
[2018-01-29] MEDS: Polyethylene Glycol 3350 17 GM Packet PO SCH ×2 (09:02→21:00)
[2018-01-29] MEDS: Clotrimazole/Betamethasone Cream 45 GM TUBE TOP SCH ×2 (09:02→21:00)
[2018-01-29] MEDS: MEROPENEM 1 GM/50 ML 1 GM in Premix Bag 1 BAG IVPB SCH ×2 (12:25→23:12)
[2018-01-29] MEDS: Montelukast Sodium 10 mg Tablet PO SCH (21:00)
[2018-01-29] MEDS: Simvastatin 40 MG TAB PO SCH (21:00)
[2018-01-29] MEDS: Acetaminophen 325 MG TAB PO PRN (23:05)
[2018-01-30 05:37] LABS: Anion Gap 13 mmol/L (10-20); BUN (Urea Nitrogen) 18 mg/dL (9.8-20.1); Calc. Creatinine Clearance 83 mL/min (70-130); Calcium 7.8 mg/dL (7.8-10.44); Carbon Dioxide 21 mmol/L (23-31); Chloride 110 mmol/L (98-107); Estimated GFR-MDRD 78; Glucose 192 mg/dL (83-110); Potassium 4.6 mmol/L (3.5-5.1); Sodium 139 mmol/L (136-145)
[2018-01-30 05:47] LABS: Band 12 % (5-11); Hemoglobin 9.4 g/dL (12.0-16.0); Lymphocytes 10 % (21-51); MDiff Complete? YES; Mean Corpuscular HGB CONC 32.2 g/dL (32.0-36.0); Mean Corpuscular Hemoglobin 27.8 pg (27.0-31.0); Mean Corpuscular Volume 86.2 fL (78.0-98.0); Mean Platelet Volume 11.2 fL (7.4-10.4); Metamyelocyte 1 % (0-0); Monocytes 14 % (0-10); Myelocyte 4 % (0-0); Neutrophil 59 % (42-75); Nucleated RBC 3 % (0); PLT Morphology Comment Appears Decreased; Platelet Count 85 thou/uL (130-400); Polychromasia SLIGHT = 2-3 cells (100X) (0-2/hpf); RBC Distribution Width 16.7 % (11.5-14.5); Red Blood Cell (RBC) Count 3.38 mill/uL (4.20-5.40); Toxic Granulation SLIGHT; White Blood Cell (WBC) Count 11.9 thou/uL (4.8-10.8)
[2018-01-30] MEDS: D5 0.9% NS w/ 20 mEq KCl 1,000 ML IV SCH ×3 (06:12→18:14)
[2018-01-30] MEDS: Ondansetron PF 4 MG/2 ML Vial IVP PRN (07:36)
[2018-01-30] MEDS: Metoclopramide HCl 10 MG/2 ML VIAL IVP SCH ×4 (08:43→20:05)
[2018-01-30] MEDS: Saccharomyces boulardii 250 MG CAP PO SCH (08:43)
[2018-01-30] MEDS: Acetaminophen 325 MG TAB PO PRN (08:43)
[2018-01-30] MEDS: Senokot S 8.6-50 MG TAB PO SCH ×2 (08:44→20:18)
[2018-01-30] MEDS: Losartan 25 MG TAB PO SCH (08:44)
[2018-01-30] MEDS: Clopidogrel Bisulfate 75 MG TAB PO SCH (08:44)
[2018-01-30] MEDS: Polyethylene Glycol 3350 17 GM Packet PO SCH ×2 (08:45→20:05)
[2018-01-30] MEDS: Bisoprolol Fumarate 5 MG TAB PO SCH (08:45)
--- NOTE | 2018-01-30 09:25 | PDOC.PN ---
- Subjective Encounter Start Date: 01/30/18 Encounter Start Time: 07:00 pt is still very weak, has not able to participate with PT due to weakness, has rib cage pain - Objective Resuscitation Status - Order Detail: 01/21/18 21:48 Resuscitation Status Routine Resuscitation Status: FULL: Full Resuscitation MAR Reviewed: Yes Vital Signs & Weight: Vital Signs (12 hours) Temp Pulse Resp BP Pulse Ox 01/30/18 07:43 102 H 16 94 L 01/30/18 06:54 97.4 F L 75 16 112/57 L 95 01/29/18 23:55 98 Weight Admit Weight 180 lb 1 oz Weight 180 lb 1 oz I&O: 01/29/18 01/30/18 01/31/18 06:59 06:59 06:59 Intake Total 1939 1999 Balance 1939 1999 Result Diagrams: 01/30/18 04:45 01/30/18 04:45 Additional Labs: Accuchecks 01/30/18 01/29/18 01/29/18 04:42 20:01 16:00 POC Glucose 189 H 206 H 167 H 01/29/18 11:38 POC Glucose 200 H Phys Exam - Physical Examination Constitutional: NAD HEENT: PERRLA, moist MMs, sclera anicteric Neck: no JVD, supple Respiratory: no wheezing, no rales, no rhonchi Cardiovascular: RRR, no significant murmur, no rub Gastrointestinal: soft, non-tender, no distention, positive bowel sounds Musculoskeletal: no edema, pulses present Neurological: non-focal, normal sensation, moves all 4 limbs Lymphatic: no nodes Psychiatric: normal affect, A&O x 3 Skin: no rash, normal turgor Dx/Plan (1) Acute kidney injury Code(s): N17.9 - ACUTE KIDNEY FAILURE, UNSPECIFIED Status: Resolved (2) Hypokalemia Code(s): E87.6 - HYPOKALEMIA Status: Acute (3) Hyponatremia Code(s): E87.1 - HYPO-OSMOLALITY AND HYPONATREMIA Status: Resolved (4) Hypotension Status: Resolved (5) Left lower lobe pneumonia Code(s): J18.1 - LOBAR PNEUMONIA, UNSPECIFIED ORGANISM Status: Acute (6) Pancytopenia due to chemotherapy Code(s): D61.810 - ANTINEOPLASTIC CHEMOTHERAPY INDUCED PANCYTOPENIA Status: Acute (7) 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 Code(s): C78.7 - SECONDARY MALIG NEOPLASM OF LIVER AND INTRAHEPATIC BILE DUCT; C80.1 - MALIGNANT (PRIMARY) NEOPLASM, UNSPECIFIED Status: Acute Comment: poorly differentiated carcinoma (8) Anxiety and depression Code(s): F41.9 - ANXIETY DISORDER, UNSPECIFIED; F32.9 - MAJOR DEPRESSIVE DISORDER, SINGLE EPISODE, UNSPECIFIED Status: Chronic (9) Dyslipidemia Code(s): E78.5 - HYPERLIPIDEMIA, UNSPECIFIED Status: Chronic (10) Hypertension Code(s): I10 - ESSENTIAL (PRIMARY) HYPERTENSION Status: Chronic (11) Physical deconditioning Code(s): R53.81 - OTHER MALAISE Status: Acute - Plan cont current plan of care, continue antibiotics, PT/OT * medication reviewed as below * symptomatic treatment * reduce IVF * dc meropenam * start augmentin * oncology to decide if they wanted to offer chemotherapy with her current level of performance status. * discharge planning * high risk for readmission Review of Systems - Review of Systems Constitutional: weakness Respiratory: negative: Cough, Dry, Shortness of Breath, Hemoptysis, SOB with Excertion, Pleuritic Pain, Sputum, Wheezing Cardiovascular: negative: chest pain, palpitations, orthopnea, paroxysmal nocturnal dyspnea, edema, light headedness, other Gastrointestinal: negative: Nausea, Vomiting, Abdominal Pain, Diarrhea, Constipation, Melena, Hematochezia, Other Genitourinary: negative: Dysuria, Frequency, Incontinence, Hematuria, Retention , Other Musculoskeletal: negative: Neck Pain, Shoulder Pain, Arm Pain, Back Pain, Hand Pain, Leg Pain, Foot Pain, Other - Medications/Allergies Allergies/Adverse Reactions: Allergies Allergy/AdvReac Type Severity Reaction Status Date / Time ibuprofen Allergy Rash Verified 11/08/17 11:44 Medications: Current Medications Acetaminophen (Tylenol) 650 mg PO Q4H PRN PRN Reason: Headache/Fever/Mild Pain (1-3) Last Admin: 01/30/18 08:43 Dose: 650 mg Albuterol/Ipratropium (Duoneb) 3 ml NEB [id number] [facility] Last Admin: 01/30/18 07:43 Dose: 3 ml Albuterol/Ipratropium (Duoneb) 3 ml NEB Q4H PRN PRN Reason: SOB &/or Wheezing Amoxicillin/Clavulanate Potassium (Augmentin) 875 mg PO Q12HR [facility] Artificial Tears (Tears Naturale) 2 drop EA EYE PRN PRN PRN Reason: Dry Eyes Betamethasone/Clotrimazole (Lotrisone Cream) 0 gm TOP BID [facility] Bisacodyl (Dulcolax) 10 mg PO DAILYPRN PRN PRN Reason: Constipation Last Admin: 01/23/18 15:46 Dose: 10 mg Bisoprolol Fumarate (Zebeta) 5 mg PO DAILY [facility] Last Admin: 01/30/18 08:45 Dose: 5 mg Cholecalciferol (Vitamin D3) 2,000 units PO DAILY [facility] Last Admin: 01/30/18 08:45 Dose: 2,000 units Clopidogrel Bisulfate (Plavix) 75 mg PO DAILY [facility] Last Admin: 01/30/18 08:44 Dose: 75 mg Dextrose/Water (Dextrose 50%) 25 gm SLOW IVP PRN PRN PRN Reason: Hypoglycemia Glucagon (Glucagon) 1 mg IM PRN PRN PRN Reason: Hypoglycemia Guaifenesin (Robitussin Sf) 200 mg PO Q4H PRN PRN Reason: Cough Hydralazine HCl (Apresoline) 10 mg SLOW IVP Q4H PRN PRN Reason: SBP > 180 and HR < 70 Dextrose/Water (D5w) 1,000 mls @ 0 mls/hr IV .Q0M PRN PRN Reason: Hypoglycemia Potassium Chloride/Dextrose/Sod Cl (D5 0.9% Ns W/ 20 Meq Kcl) 1,000 mls @ 100 mls/hr IV .Q10H [facility] Last Admin: 01/30/18 06:12 Dose: 1,000 mls Insulin Human Lispro (Humalog) 0 units SC .MILD SLIDING SCALE PRN PRN Reason: Mild Correctional Scale Last Admin: 01/28/18 17:18 Dose: 3 unit Insulin Human Lispro (Humalog) 0 units SC .BEDTIME SLIDING SC PRN PRN Reason: Bedtime Correctional Scale Loperamide HCl (Imodium) 2 mg PO PRN PRN PRN Reason: Diarrhea/Loose Stools Loratadine (Claritin) 10 mg PO DAILYPRN PRN PRN Reason: Sinus Symptoms Losartan Potassium (Cozaar) 50 mg PO DAILY [facility] Last Admin: 01/30/18 08:44 Dose: 50 mg Metoclopramide HCl (Reglan) 10 mg IVP QID [facility] Last Admin: 01/30/18 08:43 Dose: 10 mg Mineral Oil/White Petrolatum (Eucerin Cream) 0 gm TOP BIDPRN PRN PRN Reason: Dry Skin Montelukast Sodium (Singulair) 10 mg PO [facility] Last Admin: 01/29/18 21:00 Dose: Not Given Morphine Sulfate (Morphine) 2 mg SLOW IVP Q4H PRN PRN Reason: Moderate Pain (4-6) Last Admin: 01/29/18 08:55 Dose: 2 mg Ondansetron HCl (Zofran Odt) 4 mg PO Q6H PRN PRN Reason: Nausea/Vomiting Last Admin: 01/26/18 04:32 Dose: 4 mg Ondansetron HCl (Zofran) 4 mg IVP Q6H PRN PRN Reason: Nausea/Vomiting Last Admin: 01/30/18 07:36 Dose: 4 mg Pantoprazole Sodium (Protonix) 40 mg PO DAILY [facility] Last Admin: 01/30/18 08:44 Dose: 40 mg Polyethylene Glycol (Miralax) 17 gm PO BID [facility] Last Admin: 01/30/18 08:45 Dose: 17 gm Promethazine HCl (Phenergan) 12.5 mg IM/IV Q6H PRN PRN Reason: Nausea/Vomiting Last Admin: 01/29/18 00:31 Dose: 12.5 mg Saccharomyces Boulardii (Florastor) 250 mg PO DAILY [facility] Last Admin: 01/30/18 08:43 Dose: 250 mg Senna/Docusate Sodium (Senokot S) 2 tab PO BID [facility] Last Admin: 01/30/18 08:44 Dose: 2 tab Sertraline HCl (Zoloft) 50 mg PO DAILY [facility] Last Admin: 01/30/18 08:44 Dose: 50 mg Simvastatin (Zocor) 40 mg PO [facility] Last Admin: 01/29/18 21:00 Dose: Not Given Sodium Chloride (Flush - Normal Saline) 10 ml IVF Q12HR PRN PRN Reason: Saline Flush Last Admin: 01/29/18 09:02 Dose: 10 ml Sodium Chloride (Flush - Normal Saline) 10 ml IVF PRN PRN PRN Reason: Saline Flush Last Admin: 01/28/18 03:19 Dose: 10 ml Sodium Chloride ([place] Nasal [place] 0.65%) 0 ml EA NARE TID PRN PRN Reason: Nasal Congestion Throat Lozenges (Cepastat Lozenges) 1 nimisha PO Q2H PRN PRN Reason: Sore Throat Zolpidem Tartrate (Ambien) 5 mg PO HSPRN PRN PRN Reason: Insomnia Last Admin: 01/23/18 01:36 Dose: 5 mg
[2018-01-30] MEDS: Clotrimazole/Betamethasone Cream 45 GM TUBE TOP SCH (09:46)
[2018-01-30] MEDS: Morphine 2 MG/ML SYRINGE SLOW IVP PRN ×2 (11:56→16:18)
[2018-01-30] MEDS: Amoxicillin/Potassium Clav 875 MG TAB PO SCH (20:04)
[2018-01-30] MEDS: Montelukast Sodium 10 mg Tablet PO SCH (20:04)
[2018-01-30] MEDS: Simvastatin 40 MG TAB PO SCH (20:05)
[2018-01-31] MEDS: D5 0.9% NS w/ 20 mEq KCl 1,000 ML IV SCH (06:07)
[2018-01-31] MEDS: Morphine 2 MG/ML SYRINGE SLOW IVP PRN ×2 (09:17→13:35)
[2018-01-31] MEDS: Senokot S 8.6-50 MG TAB PO SCH ×2 (09:18→20:20)
[2018-01-31] MEDS: Losartan 25 MG TAB PO SCH (09:18)
[2018-01-31] MEDS: Metoclopramide HCl 10 MG/2 ML VIAL IVP SCH ×4 (09:18→20:19)
[2018-01-31] MEDS: Polyethylene Glycol 3350 17 GM Packet PO SCH ×2 (09:18→20:20)
[2018-01-31] MEDS: Amoxicillin/Potassium Clav 875 MG TAB PO SCH ×2 (09:19→20:19)
[2018-01-31] MEDS: Clopidogrel Bisulfate 75 MG TAB PO SCH (09:19)
[2018-01-31] MEDS: Saccharomyces boulardii 250 MG CAP PO SCH (09:19)
[2018-01-31] MEDS: Bisoprolol Fumarate 5 MG TAB PO SCH (09:19)
[2018-01-31] MEDS ORDERED: Furosemide 40 MG/4 ML VIAL SLOW IVP SCH (11:15)
--- NOTE | 2018-01-31 11:19 | PDOC.PN ---
- Subjective Encounter Start Date: 01/31/18 Encounter Start Time: 07:10 she has edema leg, has abdominal pain, she is very weak, - Objective Resuscitation Status - Order Detail: 01/21/18 21:48 Resuscitation Status Routine Resuscitation Status: FULL: Full Resuscitation MAR Reviewed: Yes Vital Signs & Weight: Vital Signs (12 hours) Temp Pulse Resp BP Pulse Ox 01/31/18 08:03 95 01/31/18 08:00 97.5 F L 79 17 113/54 L 94 L 01/31/18 04:00 97.6 F 79 16 109/55 L 92 L 01/31/18 00:00 98.3 F 76 16 105/52 L 92 L 01/30/18 23:57 70 16 95 Weight Admit Weight 180 lb 1 oz Weight 180 lb 1 oz I&O: 01/30/18 01/31/18 02/01/18 06:59 06:59 06:59 Intake Total 1999 3236 Balance 1999 3236 Result Diagrams: 01/30/18 04:45 01/30/18 04:45 Additional Labs: Accuchecks 01/31/18 01/30/18 01/30/18 05:14 20:45 15:57 POC Glucose 197 H 128 H 177 H 01/30/18 11:29 POC Glucose 204 H Phys Exam - Physical Examination Constitutional: NAD HEENT: PERRLA, moist MMs, sclera anicteric Neck: no JVD, supple Respiratory: no wheezing, no rales, no rhonchi reduced air entry [place] base Cardiovascular: RRR, no significant murmur, no rub Gastrointestinal: soft, no distention, positive bowel sounds tenderness+ Musculoskeletal: pulses present, edema present Neurological: non-focal, normal sensation, moves all 4 limbs Psychiatric: normal affect, A&O x 3 Skin: no rash, normal turgor Dx/Plan (1) Acute kidney injury Code(s): N17.9 - ACUTE KIDNEY FAILURE, UNSPECIFIED Status: Resolved (2) Hypokalemia Code(s): E87.6 - HYPOKALEMIA Status: Acute (3) Hyponatremia Code(s): E87.1 - HYPO-OSMOLALITY AND HYPONATREMIA Status: Resolved (4) Hypotension Status: Resolved (5) Left lower lobe pneumonia Code(s): J18.1 - LOBAR PNEUMONIA, UNSPECIFIED ORGANISM Status: Acute (6) Pancytopenia due to chemotherapy Code(s): D61.810 - ANTINEOPLASTIC CHEMOTHERAPY INDUCED PANCYTOPENIA Status: Acute (7) 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 Code(s): C78.7 - SECONDARY MALIG NEOPLASM OF LIVER AND INTRAHEPATIC BILE DUCT; C80.1 - MALIGNANT (PRIMARY) NEOPLASM, UNSPECIFIED Status: Acute Comment: poorly differentiated carcinoma (8) Anxiety and depression Code(s): F41.9 - ANXIETY DISORDER, UNSPECIFIED; F32.9 - MAJOR DEPRESSIVE DISORDER, SINGLE EPISODE, UNSPECIFIED Status: Chronic (9) Dyslipidemia Code(s): E78.5 - HYPERLIPIDEMIA, UNSPECIFIED Status: Chronic (10) Hypertension Code(s): I10 - ESSENTIAL (PRIMARY) HYPERTENSION Status: Chronic (11) Physical deconditioning Code(s): R53.81 - OTHER MALAISE Status: Acute - Plan cont current plan of care, continue antibiotics, 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 Review of Systems - Review of Systems Constitutional: weakness. negative: fever, chills, sweats, malaise, other ENT: negative: Ear Pain, Ear Discharge, Nose Pain, Nose Discharge, Nose Congestion, Mouth Pain, Mouth Swelling, Throat Pain, Throat Swelling, Other Respiratory: negative: Cough, Dry, Shortness of Breath, Hemoptysis, SOB with Excertion, Pleuritic Pain, Sputum, Wheezing Cardiovascular: edema. negative: chest pain, palpitations, orthopnea, paroxysmal nocturnal dyspnea, light headedness, other Gastrointestinal: Nausea, Abdominal Pain. negative: Vomiting, Diarrhea, Constipation, Melena, Hematochezia, Other Genitourinary: negative: Dysuria, Frequency, Incontinence, Hematuria, Retention , Other Musculoskeletal: negative: Neck Pain, Shoulder Pain, Arm Pain, Back Pain, Hand Pain, Leg Pain, Foot Pain, Other Skin: negative: Rash, Lesions, Donnell, Bruising, Other - Medications/Allergies Allergies/Adverse Reactions: Allergies Allergy/AdvReac Type Severity Reaction Status Date / Time ibuprofen Allergy Rash Verified 11/08/17 11:44 Medications: Current Medications Acetaminophen (Tylenol) 650 mg PO Q4H PRN PRN Reason: Headache/Fever/Mild Pain (1-3) Last Admin: 01/30/18 08:43 Dose: 650 mg Albuterol/Ipratropium (Duoneb) 3 ml NEB [id number] [facility] Last Admin: 01/31/18 08:00 Dose: 3 ml Albuterol/Ipratropium (Duoneb) 3 ml NEB Q4H PRN PRN Reason: SOB &/or Wheezing Amoxicillin/Clavulanate Potassium (Augmentin) 875 mg PO Q12HR [facility] Last Admin: 01/31/18 09:19 Dose: 875 mg Artificial Tears (Tears Naturale) 2 drop EA EYE PRN PRN PRN Reason: Dry Eyes Betamethasone/Clotrimazole (Lotrisone Cream) 0 gm TOP BID [facility] Last Admin: 01/31/18 09:19 Dose: 1 applic Bisacodyl (Dulcolax) 10 mg PO DAILYPRN PRN PRN Reason: Constipation Last Admin: 01/23/18 15:46 Dose: 10 mg Bisoprolol Fumarate (Zebeta) 5 mg PO DAILY [facility] Last Admin: 01/31/18 09:19 Dose: 5 mg Cholecalciferol (Vitamin D3) 2,000 units PO DAILY [facility] Last Admin: 01/31/18 09:19 Dose: 2,000 units Clopidogrel Bisulfate (Plavix) 75 mg PO DAILY [facility] Last Admin: 01/31/18 09:19 Dose: 75 mg Dextrose/Water (Dextrose 50%) 25 gm SLOW IVP PRN PRN PRN Reason: Hypoglycemia Furosemide (Lasix) 40 mg SLOW IVP DAILY [facility] Furosemide (Lasix) 40 mg SLOW IVP NOW [facility] Stop: 01/31/18 13:15 Glucagon (Glucagon) 1 mg IM PRN PRN PRN Reason: Hypoglycemia Guaifenesin (Robitussin Sf) 200 mg PO Q4H PRN PRN Reason: Cough Hydralazine HCl (Apresoline) 10 mg SLOW IVP Q4H PRN PRN Reason: SBP > 180 and HR < 70 Dextrose/Water (D5w) 1,000 mls @ 0 mls/hr IV .Q0M PRN PRN Reason: Hypoglycemia Insulin Human Lispro (Humalog) 0 units SC .MILD SLIDING SCALE PRN PRN Reason: Mild Correctional Scale Last Admin: 01/28/18 17:18 Dose: 3 unit Insulin Human Lispro (Humalog) 0 units SC .BEDTIME SLIDING SC PRN PRN Reason: Bedtime Correctional Scale Loperamide HCl (Imodium) 2 mg PO PRN PRN PRN Reason: Diarrhea/Loose Stools Loratadine (Claritin) 10 mg PO DAILYPRN PRN PRN Reason: Sinus Symptoms Losartan Potassium (Cozaar) 50 mg PO DAILY [facility] Last Admin: 01/31/18 09:18 Dose: 50 mg Metoclopramide HCl (Reglan) 10 mg IVP QID [facility] Last Admin: 01/31/18 09:18 Dose: 10 mg Mineral Oil/White Petrolatum (Eucerin Cream) 0 gm TOP BIDPRN PRN PRN Reason: Dry Skin Montelukast Sodium (Singulair) 10 mg PO [facility] Last Admin: 01/30/18 20:04 Dose: 10 mg Morphine Sulfate (Morphine) 2 mg SLOW IVP Q4H PRN PRN Reason: Moderate Pain (4-6) Last Admin: 01/31/18 09:17 Dose: 2 mg Ondansetron HCl (Zofran Odt) 4 mg PO Q6H PRN PRN Reason: Nausea/Vomiting Last Admin: 01/26/18 04:32 Dose: 4 mg Ondansetron HCl (Zofran) 4 mg IVP Q6H PRN PRN Reason: Nausea/Vomiting Last Admin: 01/30/18 07:36 Dose: 4 mg Pantoprazole Sodium (Protonix) 40 mg PO DAILY [facility] Last Admin: 01/31/18 09:19 Dose: 40 mg Polyethylene Glycol (Miralax) 17 gm PO BID [facility] Last Admin: 01/31/18 09:18 Dose: 17 gm Promethazine HCl (Phenergan) 12.5 mg IM/IV Q6H PRN PRN Reason: Nausea/Vomiting Last Admin: 01/29/18 00:31 Dose: 12.5 mg Saccharomyces Boulardii (Florastor) 250 mg PO DAILY [facility] Last Admin: 01/31/18 09:19 Dose: 250 mg Senna/Docusate Sodium (Senokot S) 2 tab PO BID [facility] Last Admin: 01/31/18 09:18 Dose: 2 tab Sertraline HCl (Zoloft) 50 mg PO DAILY [facility] Last Admin: 01/31/18 09:18 Dose: 50 mg Simvastatin (Zocor) 40 mg PO HS [facility] Last Admin: 01/30/18 20:05 Dose: 40 mg Sodium Chloride (Flush - Normal Saline) 10 ml IVF Q12HR PRN PRN Reason: Saline Flush Last Admin: 01/31/18 09:19 Dose: 10 ml Sodium Chloride (Flush - Normal Saline) 10 ml IVF PRN PRN PRN Reason: Saline Flush Last Admin: 01/28/18 03:19 Dose: 10 ml Sodium Chloride ([place] Nasal [place] 0.65%) 0 ml EA NARE TID PRN PRN Reason: Nasal Congestion Throat Lozenges (Cepastat Lozenges) 1 nimisha PO Q2H PRN PRN Reason: Sore Throat Zolpidem Tartrate (Ambien) 5 mg PO HSPRN PRN PRN Reason: Insomnia Last Admin: 01/23/18 01:36 Dose: 5 mg
[2018-01-31] MEDS ORDERED: Iopamidol 370 76% 100 ML VIAL ONE (11:33)
[2018-01-31] MEDS ORDERED: Iopamidol 370 76% 50 ML VIAL FS ONE (11:33)
--- NOTE | 2018-01-31 15:55 | CT ---
CT OF THE ABDOMEN AND PELVIS WITH CONTRAST 01/31/18 COMPARISON: 11/17/17 HISTORY: Abdominal pain. Patient had liver cancer diagnosed this year and has had chemotherapy. TECHNIQUE: Multiple contiguous axial images were obtained in a CT of the abdomen and pelvis with contrast. PO co ntrast was administered. Coronal reformats were performed. FINDINGS: Multiple lesions are seen in the gallbladder surrounding the gallbladder and falciform ligament. When compared to the prior examination, these have decreased in size. The largest lesion is seen adjacent to the falciform ligament measuring 2.8 cm in greatest dimension. Previously, this lesion measures 3 .5 cm in greatest dimension. A small subcentimeter lesion in the far right lobe of the liver is too s mall to definitely characterize and remains stable. There has been interval development of a small amount of ascites. The gallbladder, kidneys, adrenal g lands, spleen and pancreas are unremarkable. The large and small bowel are unremarkable. The patient is status post hysterectomy. No abdominal or pelvic lymphadenopathy are seen. Atherosclerotic calcifications are seen in the aorta. Small bilateral pleural effusions with adjacent atelectasis are seen. The abdominal wall soft tissues are unremarkable. Degenerative changes are seen in the spine. Diffuse soft tissue anasarca is presen t. IMPRESSION: 1. Decreased size of hepatic metastases. 2. Interval development of a small amount of ascites. 3. Small bilateral pleural effusions with adjacent atelectasis. POS: [facility]
[2018-01-31] MEDS: Montelukast Sodium 10 mg Tablet PO SCH (20:19)
[2018-01-31] MEDS: Simvastatin 40 MG TAB PO SCH (20:20)
[2018-02-01] MEDS: Clopidogrel Bisulfate 75 MG TAB PO SCH (09:02)
[2018-02-01] MEDS: Amoxicillin/Potassium Clav 875 MG TAB PO SCH ×2 (09:02→22:41)
[2018-02-01] MEDS: Saccharomyces boulardii 250 MG CAP PO SCH (09:03)
[2018-02-01] MEDS: Losartan 25 MG TAB PO SCH (09:04)
[2018-02-01] MEDS: Acetaminophen 325 MG TAB PO PRN ×2 (09:05→14:35)
[2018-02-01] MEDS: Polyethylene Glycol 3350 17 GM Packet PO SCH ×2 (09:06→22:23)
[2018-02-01] MEDS: Bisoprolol Fumarate 5 MG TAB PO SCH (09:06)
[2018-02-01] MEDS: Metoclopramide HCl 10 MG/2 ML VIAL IVP SCH ×4 (09:06→22:31)
[2018-02-01] MEDS: Furosemide 40 MG/4 ML VIAL SLOW IVP SCH (09:06)
[2018-02-01] MEDS: Senokot S 8.6-50 MG TAB PO SCH ×2 (09:07→22:23)
--- NOTE | 2018-02-01 09:47 | PDOC.PN ---
- Subjective Encounter Start Date: 02/01/18 Encounter Start Time: 07:30 she is weak, no fever, - Objective Resuscitation Status - Order Detail: 01/21/18 21:48 Resuscitation Status Routine Resuscitation Status: FULL: Full Resuscitation MAR Reviewed: Yes Vital Signs & Weight: Vital Signs (12 hours) Pulse Resp Pulse Ox 02/01/18 04:00 77 92 L 02/01/18 00:53 75 16 94 L 02/01/18 00:00 75 93 L Weight Admit Weight 180 lb 1 oz Weight 180 lb 1 oz I&O: 01/31/18 02/01/18 02/02/18 06:59 06:59 06:59 Intake Total 3236 1055 Output Total 2 Balance 3236 1053 Result Diagrams: 01/30/18 04:45 01/30/18 04:45 Additional Labs: Accuchecks 02/01/18 01/31/18 01/31/18 05:23 20:06 16:36 POC Glucose 140 H 123 H 148 H 01/31/18 11:31 POC Glucose 155 H Phys Exam - Physical Examination Constitutional: NAD HEENT: PERRLA, moist MMs, sclera anicteric Neck: no JVD, supple Respiratory: no wheezing, no rales, no rhonchi reduced air entry [place] Cardiovascular: RRR, no significant murmur, no rub Gastrointestinal: soft, non-tender, no distention, positive bowel sounds Musculoskeletal: pulses present, edema present Neurological: non-focal, normal sensation Psychiatric: normal affect, A&O x 3 Skin: no rash, normal turgor Dx/Plan (1) Acute kidney injury Code(s): N17.9 - ACUTE KIDNEY FAILURE, UNSPECIFIED Status: Resolved (2) Hypokalemia Code(s): E87.6 - HYPOKALEMIA Status: Acute (3) Hyponatremia Code(s): E87.1 - HYPO-OSMOLALITY AND HYPONATREMIA Status: Resolved (4) Hypotension Status: Resolved (5) Left lower lobe pneumonia Code(s): J18.1 - LOBAR PNEUMONIA, UNSPECIFIED ORGANISM Status: Acute (6) Pancytopenia due to chemotherapy Code(s): D61.810 - ANTINEOPLASTIC CHEMOTHERAPY INDUCED PANCYTOPENIA Status: Acute (7) 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 Code(s): C78.7 - SECONDARY MALIG NEOPLASM OF LIVER AND INTRAHEPATIC BILE DUCT; C80.1 - MALIGNANT (PRIMARY) NEOPLASM, UNSPECIFIED Status: Acute Comment: poorly differentiated carcinoma (8) Anxiety and depression Code(s): F41.9 - ANXIETY DISORDER, UNSPECIFIED; F32.9 - MAJOR DEPRESSIVE DISORDER, SINGLE EPISODE, UNSPECIFIED Status: Chronic (9) Dyslipidemia Code(s): E78.5 - HYPERLIPIDEMIA, UNSPECIFIED Status: Chronic (10) Hypertension Code(s): I10 - ESSENTIAL (PRIMARY) HYPERTENSION Status: Chronic (11) Physical deconditioning Code(s): R53.81 - OTHER MALAISE Status: Acute - Plan cont current plan of care, 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 Review of Systems - Review of Systems Constitutional: weakness. negative: fever, chills, sweats, malaise, other ENT: negative: Ear Pain, Ear Discharge, Nose Pain, Nose Discharge, Nose Congestion, Mouth Pain, Mouth Swelling, Throat Pain, Throat Swelling, Other Respiratory: negative: Cough, Dry, Shortness of Breath, Hemoptysis, SOB with Excertion, Pleuritic Pain, Sputum, Wheezing Cardiovascular: edema. negative: chest pain, palpitations, orthopnea, paroxysmal nocturnal dyspnea, light headedness, other Gastrointestinal: negative: Nausea, Vomiting, Abdominal Pain, Diarrhea, Constipation, Melena, Hematochezia, Other Genitourinary: negative: Dysuria, Frequency, Incontinence, Hematuria, Retention , Other Musculoskeletal: negative: Neck Pain, Shoulder Pain, Arm Pain, Back Pain, Hand Pain, Leg Pain, Foot Pain, Other Skin: negative: Rash, Lesions, Donnell, Bruising, Other - Medications/Allergies Allergies/Adverse Reactions: Allergies Allergy/AdvReac Type Severity Reaction Status Date / Time ibuprofen Allergy Rash Verified 11/08/17 11:44 Medications: Current Medications Acetaminophen (Tylenol) 650 mg PO Q4H PRN PRN Reason: Headache/Fever/Mild Pain (1-3) Last Admin: 02/01/18 09:05 Dose: 650 mg Albuterol/Ipratropium (Duoneb) 3 ml NEB [id number] [facility] Last Admin: 02/01/18 07:55 Dose: Not Given Albuterol/Ipratropium (Duoneb) 3 ml NEB Q4H PRN PRN Reason: SOB &/or Wheezing Amoxicillin/Clavulanate Potassium (Augmentin) 875 mg PO Q12HR [facility] Last Admin: 02/01/18 09:02 Dose: 875 mg Artificial Tears (Tears Naturale) 2 drop EA EYE PRN PRN PRN Reason: Dry Eyes Betamethasone/Clotrimazole (Lotrisone Cream) 0 gm TOP BID [facility] Last Admin: 02/01/18 09:02 Dose: 1 applic Bisacodyl (Dulcolax) 10 mg PO DAILYPRN PRN PRN Reason: Constipation Last Admin: 01/23/18 15:46 Dose: 10 mg Bisoprolol Fumarate (Zebeta) 5 mg PO DAILY [facility] Last Admin: 02/01/18 09:06 Dose: Not Given Cholecalciferol (Vitamin D3) 2,000 units PO DAILY [facility] Last Admin: 02/01/18 09:02 Dose: 2,000 units Clopidogrel Bisulfate (Plavix) 75 mg PO DAILY [facility] Last Admin: 02/01/18 09:02 Dose: 75 mg Dextrose/Water (Dextrose 50%) 25 gm SLOW IVP PRN PRN PRN Reason: Hypoglycemia Furosemide (Lasix) 40 mg SLOW IVP DAILY [facility] Last Admin: 02/01/18 09:06 Dose: 40 mg Glucagon (Glucagon) 1 mg IM PRN PRN PRN Reason: Hypoglycemia Guaifenesin (Robitussin Sf) 200 mg PO Q4H PRN PRN Reason: Cough Hydralazine HCl (Apresoline) 10 mg SLOW IVP Q4H PRN PRN Reason: SBP > 180 and HR < 70 Dextrose/Water (D5w) 1,000 mls @ 0 mls/hr IV .Q0M PRN PRN Reason: Hypoglycemia Insulin Human Lispro (Humalog) 0 units SC .MILD SLIDING SCALE PRN PRN Reason: Mild Correctional Scale Last Admin: 01/28/18 17:18 Dose: 3 unit Insulin Human Lispro (Humalog) 0 units SC .BEDTIME SLIDING SC PRN PRN Reason: Bedtime Correctional Scale Loperamide HCl (Imodium) 2 mg PO PRN PRN PRN Reason: Diarrhea/Loose Stools Loratadine (Claritin) 10 mg PO DAILYPRN PRN PRN Reason: Sinus Symptoms Losartan Potassium (Cozaar) 50 mg PO DAILY [facility] Last Admin: 02/01/18 09:04 Dose: 50 mg Metoclopramide HCl (Reglan) 10 mg IVP QID [facility] Last Admin: 02/01/18 09:06 Dose: 10 mg Mineral Oil/White Petrolatum (Eucerin Cream) 0 gm TOP BIDPRN PRN PRN Reason: Dry Skin Montelukast Sodium (Singulair) 10 mg PO HS [facility] Last Admin: 01/31/18 20:19 Dose: 10 mg Morphine Sulfate (Morphine) 2 mg SLOW IVP Q4H PRN PRN Reason: Moderate Pain (4-6) Last Admin: 01/31/18 13:35 Dose: 2 mg Ondansetron HCl (Zofran Odt) 4 mg PO Q6H PRN PRN Reason: Nausea/Vomiting Last Admin: 01/26/18 04:32 Dose: 4 mg Ondansetron HCl (Zofran) 4 mg IVP Q6H PRN PRN Reason: Nausea/Vomiting Last Admin: 01/30/18 07:36 Dose: 4 mg Pantoprazole Sodium (Protonix) 40 mg PO DAILY [facility] Last Admin: 02/01/18 09:02 Dose: 40 mg Polyethylene Glycol (Miralax) 17 gm PO BID [facility] Last Admin: 02/01/18 09:06 Dose: Not Given Promethazine HCl (Phenergan) 12.5 mg IM/IV Q6H PRN PRN Reason: Nausea/Vomiting Last Admin: 01/29/18 00:31 Dose: 12.5 mg Saccharomyces Boulardii (Florastor) 250 mg PO DAILY [facility] Last Admin: 02/01/18 09:03 Dose: 250 mg Senna/Docusate Sodium (Senokot S) 2 tab PO BID [facility] Last Admin: 02/01/18 09:07 Dose: Not Given Sertraline HCl (Zoloft) 50 mg PO DAILY [facility] Last Admin: 02/01/18 09:02 Dose: 50 mg Simvastatin (Zocor) 40 mg PO HS [facility] Last Admin: 01/31/18 20:20 Dose: 40 mg Sodium Chloride (Flush - Normal Saline) 10 ml IVF Q12HR PRN PRN Reason: Saline Flush Last Admin: 02/01/18 09:06 Dose: 10 ml Sodium Chloride (Flush - Normal Saline) 10 ml IVF PRN PRN PRN Reason: Saline Flush Last Admin: 01/28/18 03:19 Dose: 10 ml Sodium Chloride ([place] Nasal [place] 0.65%) 0 ml EA NARE TID PRN PRN Reason: Nasal Congestion Throat Lozenges (Cepastat Lozenges) 1 nimisha PO Q2H PRN PRN Reason: Sore Throat Zolpidem Tartrate (Ambien) 5 mg PO HSPRN PRN PRN Reason: Insomnia Last Admin: 01/23/18 01:36 Dose: 5 mg
[2018-02-01] MEDS: Simvastatin 40 MG TAB PO SCH (22:38)
[2018-02-01] MEDS: Montelukast Sodium 10 mg Tablet PO SCH (22:39)
[2018-02-02] MEDS: Amoxicillin/Potassium Clav 875 MG TAB PO SCH (08:49)
[2018-02-02] MEDS: Clopidogrel Bisulfate 75 MG TAB PO SCH (08:50)
[2018-02-02] MEDS: Saccharomyces boulardii 250 MG CAP PO SCH (08:56)
[2018-02-02] MEDS: Furosemide 40 MG/4 ML VIAL SLOW IVP SCH (08:57)
[2018-02-02] MEDS: Metoclopramide HCl 10 MG/2 ML VIAL IVP SCH ×4 (08:57→22:34)
[2018-02-02] MEDS: Simethicone Chewable 80 MG TAB PO PRN (08:57)
[2018-02-02] MEDS: Bisoprolol Fumarate 5 MG TAB PO SCH (08:57)
[2018-02-02] MEDS: Senokot S 8.6-50 MG TAB PO SCH ×2 (08:58→22:36)
[2018-02-02] MEDS: Losartan 25 MG TAB PO SCH (08:58)
[2018-02-02] MEDS: Polyethylene Glycol 3350 17 GM Packet PO SCH ×2 (08:58→22:36)
--- NOTE | 2018-02-02 10:59 | PDOC.PN ---
- Subjective Encounter Start Date: 02/02/18 Encounter Start Time: 07:20 Patient seen and examined. No new complaints. No overnight events she feels abdominal bloating - Objective Resuscitation Status - Order Detail: 01/21/18 21:48 Resuscitation Status Routine Resuscitation Status: FULL: Full Resuscitation MAR Reviewed: Yes Vital Signs & Weight: Vital Signs (12 hours) Temp Pulse Resp BP Pulse Ox 02/02/18 08:00 98.4 F 84 16 108/55 L 98 02/02/18 06:53 94 L 02/02/18 06:47 80 16 94 L 02/02/18 01:39 75 18 90 L Weight Admit Weight 180 lb 1 oz Weight 180 lb 1 oz I&O: 02/01/18 02/02/18 02/03/18 06:59 06:59 06:59 Intake Total 1055 530 Output Total 2 Balance 1053 530 Result Diagrams: 01/30/18 04:45 01/30/18 04:45 Additional Labs: Accuchecks 02/02/18 02/01/18 02/01/18 05:17 19:47 16:14 POC Glucose 160 H 177 H 161 H 02/01/18 10:49 POC Glucose 191 H Phys Exam - Physical Examination Constitutional: NAD HEENT: PERRLA, moist MMs, sclera anicteric Neck: no JVD, supple Respiratory: no wheezing, no rales, no rhonchi Cardiovascular: RRR, no significant murmur, no rub Gastrointestinal: soft, non-tender, no distention, positive bowel sounds Musculoskeletal: pulses present, edema present Neurological: non-focal, normal sensation, moves all 4 limbs Lymphatic: no nodes Psychiatric: normal affect, A&O x 3 Skin: no rash, normal turgor Dx/Plan (1) Acute kidney injury Code(s): N17.9 - ACUTE KIDNEY FAILURE, UNSPECIFIED Status: Resolved (2) Hypokalemia Code(s): E87.6 - HYPOKALEMIA Status: Acute (3) Hyponatremia Code(s): E87.1 - HYPO-OSMOLALITY AND HYPONATREMIA Status: Resolved (4) Hypotension Status: Resolved (5) Left lower lobe pneumonia Code(s): J18.1 - LOBAR PNEUMONIA, UNSPECIFIED ORGANISM Status: Acute (6) Pancytopenia due to chemotherapy Code(s): D61.810 - ANTINEOPLASTIC CHEMOTHERAPY INDUCED PANCYTOPENIA Status: Acute (7) 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 Code(s): C78.7 - SECONDARY MALIG NEOPLASM OF LIVER AND INTRAHEPATIC BILE DUCT; C80.1 - MALIGNANT (PRIMARY) NEOPLASM, UNSPECIFIED Status: Acute Comment: poorly differentiated carcinoma (8) Anxiety and depression Code(s): F41.9 - ANXIETY DISORDER, UNSPECIFIED; F32.9 - MAJOR DEPRESSIVE DISORDER, SINGLE EPISODE, UNSPECIFIED Status: Chronic (9) Dyslipidemia Code(s): E78.5 - HYPERLIPIDEMIA, UNSPECIFIED Status: Chronic (10) Hypertension Code(s): I10 - ESSENTIAL (PRIMARY) HYPERTENSION Status: Chronic (11) Physical deconditioning Code(s): R53.81 - OTHER MALAISE Status: Acute - Plan cont current plan of care, PT/OT, social worker psychiatric * DC Augmentin * add simethicone PRN * once SNU arranged, will consider discharge * medication reviewed as below * symptomatic treatment. Review of Systems - Review of Systems Constitutional: weakness. negative: fever, chills, sweats, malaise, other ENT: negative: Ear Pain, Ear Discharge, Nose Pain, Nose Discharge, Nose Congestion, Mouth Pain, Mouth Swelling, Throat Pain, Throat Swelling, Other Respiratory: negative: Cough, Dry, Shortness of Breath, Hemoptysis, SOB with Excertion, Pleuritic Pain, Sputum, Wheezing Cardiovascular: negative: chest pain, palpitations, orthopnea, paroxysmal nocturnal dyspnea, edema, light headedness, other Gastrointestinal: negative: Nausea, Vomiting, Abdominal Pain, Diarrhea, Constipation, Melena, Hematochezia, Other Genitourinary: negative: Dysuria, Frequency, Incontinence, Hematuria, Retention , Other Musculoskeletal: negative: Neck Pain, Shoulder Pain, Arm Pain, Back Pain, Hand Pain, Leg Pain, Foot Pain, Other Skin: negative: Rash, Lesions, Donnell, Bruising, Other - Medications/Allergies Allergies/Adverse Reactions: Allergies Allergy/AdvReac Type Severity Reaction Status Date / Time ibuprofen Allergy Rash Verified 11/08/17 11:44 Medications: Current Medications Acetaminophen (Tylenol) 650 mg PO Q4H PRN PRN Reason: Headache/Fever/Mild Pain (1-3) Last Admin: 02/01/18 14:35 Dose: 650 mg Albuterol/Ipratropium (Duoneb) 3 ml NEB [id number] [facility] Last Admin: 02/02/18 06:47 Dose: 3 ml Albuterol/Ipratropium (Duoneb) 3 ml NEB Q4H PRN PRN Reason: SOB &/or Wheezing Artificial Tears (Tears Naturale) 2 drop EA EYE PRN PRN PRN Reason: Dry Eyes Betamethasone/Clotrimazole (Lotrisone Cream) 0 gm TOP BID [facility] Last Admin: 02/02/18 08:57 Dose: 1 applic Bisacodyl (Dulcolax) 10 mg PO DAILYPRN PRN PRN Reason: Constipation Last Admin: 01/23/18 15:46 Dose: 10 mg Bisoprolol Fumarate (Zebeta) 5 mg PO DAILY [facility] Last Admin: 02/02/18 08:57 Dose: Not Given Cholecalciferol (Vitamin D3) 2,000 units PO DAILY [facility] Last Admin: 02/02/18 08:56 Dose: 2,000 units Clopidogrel Bisulfate (Plavix) 75 mg PO DAILY [facility] Last Admin: 02/02/18 08:50 Dose: Not Given Dextrose/Water (Dextrose 50%) 25 gm SLOW IVP PRN PRN PRN Reason: Hypoglycemia Furosemide (Lasix) 40 mg SLOW IVP DAILY [facility] Last Admin: 02/02/18 08:57 Dose: 40 mg Glucagon (Glucagon) 1 mg IM PRN PRN PRN Reason: Hypoglycemia Guaifenesin (Robitussin Sf) 200 mg PO Q4H PRN PRN Reason: Cough Hydralazine HCl (Apresoline) 10 mg SLOW IVP Q4H PRN PRN Reason: SBP > 180 and HR < 70 Dextrose/Water (D5w) 1,000 mls @ 0 mls/hr IV .Q0M PRN PRN Reason: Hypoglycemia Insulin Human Lispro (Humalog) 0 units SC .MILD SLIDING SCALE PRN PRN Reason: Mild Correctional Scale Last Admin: 01/28/18 17:18 Dose: 3 unit Insulin Human Lispro (Humalog) 0 units SC .BEDTIME SLIDING SC PRN PRN Reason: Bedtime Correctional Scale Loperamide HCl (Imodium) 2 mg PO PRN PRN PRN Reason: Diarrhea/Loose Stools Loratadine (Claritin) 10 mg PO DAILYPRN PRN PRN Reason: Sinus Symptoms Losartan Potassium (Cozaar) 50 mg PO DAILY [facility] Last Admin: 02/02/18 08:58 Dose: Not Given Metoclopramide HCl (Reglan) 10 mg IVP QID [facility] Last Admin: 02/02/18 08:57 Dose: 10 mg Mineral Oil/White Petrolatum (Eucerin Cream) 0 gm TOP BIDPRN PRN PRN Reason: Dry Skin Montelukast Sodium (Singulair) 10 mg PO [facility] Last Admin: 02/01/18 22:39 Dose: 10 mg Morphine Sulfate (Morphine) 2 mg SLOW IVP Q4H PRN PRN Reason: Moderate Pain (4-6) Last Admin: 01/31/18 13:35 Dose: 2 mg Ondansetron HCl (Zofran Odt) 4 mg PO Q6H PRN PRN Reason: Nausea/Vomiting Last Admin: 01/26/18 04:32 Dose: 4 mg Ondansetron HCl (Zofran) 4 mg IVP Q6H PRN PRN Reason: Nausea/Vomiting Last Admin: 01/30/18 07:36 Dose: 4 mg Pantoprazole Sodium (Protonix) 40 mg PO DAILY [facility] Last Admin: 02/02/18 08:56 Dose: 40 mg Polyethylene Glycol (Miralax) 17 gm PO BID [facility] Last Admin: 02/02/18 08:58 Dose: Not Given Promethazine HCl (Phenergan) 12.5 mg IM/IV Q6H PRN PRN Reason: Nausea/Vomiting Last Admin: 01/29/18 00:31 Dose: 12.5 mg Saccharomyces Boulardii (Florastor) 250 mg PO DAILY [facility] Last Admin: 02/02/18 08:56 Dose: 250 mg Senna/Docusate Sodium (Senokot S) 2 tab PO BID [facility] Last Admin: 02/02/18 08:58 Dose: Not Given Sertraline HCl (Zoloft) 50 mg PO DAILY [facility] Last Admin: 02/02/18 08:56 Dose: 50 mg Simethicone (Mylicon Chewable) 80 mg PO Q6H PRN PRN Reason: Gas Pain Last Admin: 02/02/18 08:57 Dose: 80 mg Simvastatin (Zocor) 40 mg PO [facility] Last Admin: 02/01/18 22:38 Dose: 40 mg Sodium Chloride (Flush - Normal Saline) 10 ml IVF Q12HR PRN PRN Reason: Saline Flush Last Admin: 02/02/18 08:59 Dose: 10 ml Sodium Chloride (Flush - Normal Saline) 10 ml IVF PRN PRN PRN Reason: Saline Flush Last Admin: 02/02/18 08:59 Dose: 10 ml Sodium Chloride ([place] Nasal [place] 0.65%) 0 ml EA NARE TID PRN PRN Reason: Nasal Congestion Throat Lozenges (Cepastat Lozenges) 1 nimisha PO Q2H PRN PRN Reason: Sore Throat Zolpidem Tartrate (Ambien) 5 mg PO HSPRN PRN PRN Reason: Insomnia Last Admin: 01/23/18 01:36 Dose: 5 mg
[2018-02-02] MEDS: Morphine 2 MG/ML SYRINGE SLOW IVP PRN (11:24)
[2018-02-02] MEDS: HumaLOG 300 UNITS/3 ML VIAL SC PRN (12:10)
[2018-02-02] MEDS: Simvastatin 40 MG TAB PO SCH (21:45)
[2018-02-02] MEDS: Montelukast Sodium 10 mg Tablet PO SCH (21:45)
[2018-02-03] MEDS: Losartan 25 MG TAB PO SCH (09:37)
[2018-02-03] MEDS: Bisoprolol Fumarate 5 MG TAB PO SCH (09:37)
[2018-02-03] MEDS: Clopidogrel Bisulfate 75 MG TAB PO SCH (09:37)
[2018-02-03] MEDS: Polyethylene Glycol 3350 17 GM Packet PO SCH ×2 (09:39→21:21)
[2018-02-03] MEDS: Senokot S 8.6-50 MG TAB PO SCH ×2 (09:39→21:22)
[2018-02-03] MEDS: Saccharomyces boulardii 250 MG CAP PO SCH (09:39)
[2018-02-03] MEDS: Furosemide 40 MG/4 ML VIAL SLOW IVP SCH (09:39)
[2018-02-03] MEDS: Metoclopramide HCl 10 MG/2 ML VIAL IVP SCH ×4 (09:39→21:23)
--- NOTE | 2018-02-03 12:30 | PDOC.PN ---
- Subjective Encounter Start Date: 02/03/18 Encounter Start Time: 07:00 Patient seen and examined. No new complaints. No overnight events - Objective Resuscitation Status - Order Detail: 01/21/18 21:48 Resuscitation Status Routine Resuscitation Status: FULL: Full Resuscitation MAR Reviewed: Yes Vital Signs & Weight: Vital Signs (12 hours) Temp Pulse Resp BP Pulse Ox 02/03/18 08:49 96 02/03/18 08:48 84 16 02/03/18 08:00 97.7 F 84 18 115/54 L 91 L 02/03/18 00:31 84 16 95 Weight Admit Weight 180 lb 1 oz Weight 180 lb 1 oz I&O: 02/02/18 02/03/18 02/04/18 06:59 06:59 06:59 Intake Total 530 600 Balance 530 600 Result Diagrams: 01/30/18 04:45 01/30/18 04:45 Additional Labs: Accuchecks 02/03/18 02/02/18 02/02/18 05:48 20:47 16:10 POC Glucose 133 H 137 H 144 H Phys Exam - Physical Examination Constitutional: NAD HEENT: PERRLA, moist MMs, sclera anicteric Neck: no JVD, supple Respiratory: no wheezing, no rales, no rhonchi Cardiovascular: RRR, no significant murmur, no rub Gastrointestinal: soft, non-tender, no distention, positive bowel sounds Musculoskeletal: no edema, pulses present Neurological: non-focal, normal sensation Lymphatic: no nodes Psychiatric: normal affect, A&O x 3 Skin: no rash, normal turgor Dx/Plan (1) Acute kidney injury Code(s): N17.9 - ACUTE KIDNEY FAILURE, UNSPECIFIED Status: Resolved (2) Hypokalemia Code(s): E87.6 - HYPOKALEMIA Status: Acute (3) Hyponatremia Code(s): E87.1 - HYPO-OSMOLALITY AND HYPONATREMIA Status: Resolved (4) Hypotension Status: Resolved (5) Left lower lobe pneumonia Code(s): J18.1 - LOBAR PNEUMONIA, UNSPECIFIED ORGANISM Status: Acute (6) Pancytopenia due to chemotherapy Code(s): D61.810 - ANTINEOPLASTIC CHEMOTHERAPY INDUCED PANCYTOPENIA Status: Acute (7) 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 Code(s): C78.7 - SECONDARY MALIG NEOPLASM OF LIVER AND INTRAHEPATIC BILE DUCT; C80.1 - MALIGNANT (PRIMARY) NEOPLASM, UNSPECIFIED Status: Acute Comment: poorly differentiated carcinoma (8) Anxiety and depression Code(s): F41.9 - ANXIETY DISORDER, UNSPECIFIED; F32.9 - MAJOR DEPRESSIVE DISORDER, SINGLE EPISODE, UNSPECIFIED Status: Chronic (9) Dyslipidemia Code(s): E78.5 - HYPERLIPIDEMIA, UNSPECIFIED Status: Chronic (10) Hypertension Code(s): I10 - ESSENTIAL (PRIMARY) HYPERTENSION Status: Chronic (11) Physical deconditioning Code(s): R53.81 - OTHER MALAISE Status: Acute - Plan cont current plan of care * medication reviewed as below * symptomatic treatment. * await placement Review of Systems - Review of Systems Constitutional: weakness. negative: fever, chills, sweats, malaise, other ENT: negative: Ear Pain, Ear Discharge, Nose Pain, Nose Discharge, Nose Congestion, Mouth Pain, Mouth Swelling, Throat Pain, Throat Swelling, Other Respiratory: negative: Cough, Dry, Shortness of Breath, Hemoptysis, SOB with Excertion, Pleuritic Pain, Sputum, Wheezing Cardiovascular: negative: chest pain, palpitations, orthopnea, paroxysmal nocturnal dyspnea, edema, light headedness, other Gastrointestinal: negative: Nausea, Vomiting, Abdominal Pain, Diarrhea, Constipation, Melena, Hematochezia, Other Genitourinary: negative: Dysuria, Frequency, Incontinence, Hematuria, Retention , Other Musculoskeletal: negative: Neck Pain, Shoulder Pain, Arm Pain, Back Pain, Hand Pain, Leg Pain, Foot Pain, Other Skin: negative: Rash, Lesions, Donnell, Bruising, Other Neurological: negative: Weakness, Numbness, Incoordination, Change in Speech, Confusion, Seizures, Other - Medications/Allergies Allergies/Adverse Reactions: Allergies Allergy/AdvReac Type Severity Reaction Status Date / Time ibuprofen Allergy Rash Verified 11/08/17 11:44 Medications: Current Medications Acetaminophen (Tylenol) 650 mg PO Q4H PRN PRN Reason: Headache/Fever/Mild Pain (1-3) Last Admin: 02/01/18 14:35 Dose: 650 mg Albuterol/Ipratropium (Duoneb) 3 ml NEB [id number] [facility] Last Admin: 02/03/18 08:48 Dose: 3 ml Albuterol/Ipratropium (Duoneb) 3 ml NEB Q4H PRN PRN Reason: SOB &/or Wheezing Artificial Tears (Tears Naturale) 2 drop EA EYE PRN PRN PRN Reason: Dry Eyes Betamethasone/Clotrimazole (Lotrisone Cream) 0 gm TOP BID [facility] Last Admin: 02/03/18 09:40 Dose: 1 applic Bisacodyl (Dulcolax) 10 mg PO DAILYPRN PRN PRN Reason: Constipation Last Admin: 01/23/18 15:46 Dose: 10 mg Bisoprolol Fumarate (Zebeta) 5 mg PO DAILY [facility] Last Admin: 02/03/18 09:37 Dose: Not Given Cholecalciferol (Vitamin D3) 2,000 units PO DAILY [facility] Last Admin: 02/03/18 09:39 Dose: 2,000 units Clopidogrel Bisulfate (Plavix) 75 mg PO DAILY [facility] Last Admin: 02/03/18 09:37 Dose: Not Given Dextrose/Water (Dextrose 50%) 25 gm SLOW IVP PRN PRN PRN Reason: Hypoglycemia Furosemide (Lasix) 40 mg SLOW IVP DAILY [facility] Last Admin: 02/03/18 09:39 Dose: 40 mg Glucagon (Glucagon) 1 mg IM PRN PRN PRN Reason: Hypoglycemia Guaifenesin (Robitussin Sf) 200 mg PO Q4H PRN PRN Reason: Cough Hydralazine HCl (Apresoline) 10 mg SLOW IVP Q4H PRN PRN Reason: SBP > 180 and HR < 70 Dextrose/Water (D5w) 1,000 mls @ 0 mls/hr IV .Q0M PRN PRN Reason: Hypoglycemia Insulin Human Lispro (Humalog) 0 units SC .MILD SLIDING SCALE PRN PRN Reason: Mild Correctional Scale Last Admin: 02/02/18 12:10 Dose: 2 unit Insulin Human Lispro (Humalog) 0 units SC .BEDTIME SLIDING SC PRN PRN Reason: Bedtime Correctional Scale Loperamide HCl (Imodium) 2 mg PO PRN PRN PRN Reason: Diarrhea/Loose Stools Last Admin: 02/02/18 11:24 Dose: 2 mg Loratadine (Claritin) 10 mg PO DAILYPRN PRN PRN Reason: Sinus Symptoms Losartan Potassium (Cozaar) 50 mg PO DAILY [facility] Last Admin: 02/03/18 09:37 Dose: Not Given Metoclopramide HCl (Reglan) 10 mg IVP QID [facility] Last Admin: 02/03/18 09:39 Dose: 10 mg Mineral Oil/White Petrolatum (Eucerin Cream) 0 gm TOP BIDPRN PRN PRN Reason: Dry Skin Montelukast Sodium (Singulair) 10 mg PO HS [facility] Last Admin: 02/02/18 21:45 Dose: 10 mg Morphine Sulfate (Morphine) 2 mg SLOW IVP Q4H PRN PRN Reason: Moderate Pain (4-6) Last Admin: 02/02/18 11:24 Dose: 2 mg Ondansetron HCl (Zofran Odt) 4 mg PO Q6H PRN PRN Reason: Nausea/Vomiting Last Admin: 01/26/18 04:32 Dose: 4 mg Ondansetron HCl (Zofran) 4 mg IVP Q6H PRN PRN Reason: Nausea/Vomiting Last Admin: 01/30/18 07:36 Dose: 4 mg Pantoprazole Sodium (Protonix) 40 mg PO DAILY [facility] Last Admin: 02/03/18 09:39 Dose: 40 mg Polyethylene Glycol (Miralax) 17 gm PO BID [facility] Last Admin: 02/03/18 09:39 Dose: 17 gm Promethazine HCl (Phenergan) 12.5 mg IM/IV Q6H PRN PRN Reason: Nausea/Vomiting Last Admin: 01/29/18 00:31 Dose: 12.5 mg Saccharomyces Boulardii (Florastor) 250 mg PO DAILY [facility] Last Admin: 02/03/18 09:39 Dose: 250 mg Senna/Docusate Sodium (Senokot S) 2 tab PO BID [facility] Last Admin: 02/03/18 09:39 Dose: 2 tab Sertraline HCl (Zoloft) 50 mg PO DAILY [facility] Last Admin: 02/03/18 09:39 Dose: 50 mg Simethicone (Mylicon Chewable) 80 mg PO Q6H PRN PRN Reason: Gas Pain Last Admin: 02/02/18 08:57 Dose: 80 mg Simvastatin (Zocor) 40 mg PO HS [facility] Last Admin: 02/02/18 21:45 Dose: 40 mg Sodium Chloride (Flush - Normal Saline) 10 ml IVF Q12HR PRN PRN Reason: Saline Flush Last Admin: 02/02/18 08:59 Dose: 10 ml Sodium Chloride (Flush - Normal Saline) 10 ml IVF PRN PRN PRN Reason: Saline Flush Last Admin: 02/02/18 08:59 Dose: 10 ml Sodium Chloride ([place] Nasal [place] 0.65%) 0 ml EA NARE TID PRN PRN Reason: Nasal Congestion Throat Lozenges (Cepastat Lozenges) 1 nimisha PO Q2H PRN PRN Reason: Sore Throat Zolpidem Tartrate (Ambien) 5 mg PO HSPRN PRN PRN Reason: Insomnia Last Admin: 01/23/18 01:36 Dose: 5 mg
[2018-02-03] MEDS: Simethicone Chewable 80 MG TAB PO PRN ×2 (15:38→23:54)
[2018-02-03] MEDS: HumaLOG 300 UNITS/3 ML VIAL SC PRN (16:44)
[2018-02-03] MEDS: Simvastatin 40 MG TAB PO SCH (21:21)
[2018-02-03] MEDS: Montelukast Sodium 10 mg Tablet PO SCH (21:21)
[2018-02-04] MEDS: Acetaminophen 325 MG TAB PO PRN (09:46)
[2018-02-04] MEDS: Bisoprolol Fumarate 5 MG TAB PO SCH (09:48)
[2018-02-04] MEDS: Metoclopramide HCl 10 MG/2 ML VIAL IVP SCH ×4 (09:48→19:23)
[2018-02-04] MEDS: Furosemide 40 MG/4 ML VIAL SLOW IVP SCH (09:48)
--- NOTE | 2018-02-04 10:09 | PDOC.PN ---
- Subjective Encounter Start Date: 02/04/18 Encounter Start Time: 07:00 Patient seen and examined. No new complaints. No overnight events - Objective Resuscitation Status - Order Detail: 01/21/18 21:48 Resuscitation Status Routine Resuscitation Status: FULL: Full Resuscitation MAR Reviewed: Yes Vital Signs & Weight: Vital Signs (12 hours) Temp Pulse Resp BP Pulse Ox 02/04/18 08:00 98.2 F 94 18 117/56 L 93 L 02/04/18 06:31 86 16 02/04/18 00:40 80 16 92 L Weight Admit Weight 180 lb 1 oz Weight 180 lb 1 oz I&O: 02/03/18 02/04/18 02/05/18 06:59 06:59 06:59 Intake Total 600 Balance 600 Result Diagrams: 01/30/18 04:45 01/30/18 04:45 Additional Labs: Accuchecks 02/04/18 02/03/18 02/03/18 05:46 20:57 16:29 POC Glucose 146 H 206 H 168 H 02/03/18 11:52 POC Glucose 150 H Phys Exam - Physical Examination Constitutional: NAD HEENT: PERRLA, moist MMs, sclera anicteric Neck: no JVD, supple Respiratory: no wheezing, no rales, no rhonchi Cardiovascular: RRR, no significant murmur, no rub Gastrointestinal: soft, non-tender, no distention, positive bowel sounds Musculoskeletal: no edema, pulses present Neurological: non-focal, normal sensation Lymphatic: no nodes Psychiatric: normal affect, A&O x 3 Skin: no rash, normal turgor Dx/Plan (1) Acute kidney injury Code(s): N17.9 - ACUTE KIDNEY FAILURE, UNSPECIFIED Status: Resolved (2) Hypokalemia Code(s): E87.6 - HYPOKALEMIA Status: Acute (3) Hyponatremia Code(s): E87.1 - HYPO-OSMOLALITY AND HYPONATREMIA Status: Resolved (4) Hypotension Status: Resolved (5) Left lower lobe pneumonia Code(s): J18.1 - LOBAR PNEUMONIA, UNSPECIFIED ORGANISM Status: Acute (6) Pancytopenia due to chemotherapy Code(s): D61.810 - ANTINEOPLASTIC CHEMOTHERAPY INDUCED PANCYTOPENIA Status: Acute (7) 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 Code(s): C78.7 - SECONDARY MALIG NEOPLASM OF LIVER AND INTRAHEPATIC BILE DUCT; C80.1 - MALIGNANT (PRIMARY) NEOPLASM, UNSPECIFIED Status: Acute Comment: poorly differentiated carcinoma (8) Anxiety and depression Code(s): F41.9 - ANXIETY DISORDER, UNSPECIFIED; F32.9 - MAJOR DEPRESSIVE DISORDER, SINGLE EPISODE, UNSPECIFIED Status: Chronic (9) Dyslipidemia Code(s): E78.5 - HYPERLIPIDEMIA, UNSPECIFIED Status: Chronic (10) Hypertension Code(s): I10 - ESSENTIAL (PRIMARY) HYPERTENSION Status: Chronic (11) Physical deconditioning Code(s): R53.81 - OTHER MALAISE Status: Acute - Plan cont current plan of care, PT/OT, mental health social worker * will repeat labs tomorrow * await placement * continue PT * nutritional support * medication reviewed as below * symptomatic treatment. Review of Systems - Review of Systems ENT: negative: Ear Pain, Ear Discharge, Nose Pain, Nose Discharge, Nose Congestion, Mouth Pain, Mouth Swelling, Throat Pain, Throat Swelling, Other Respiratory: negative: Cough, Dry, Shortness of Breath, Hemoptysis, SOB with Excertion, Pleuritic Pain, Sputum, Wheezing Cardiovascular: negative: chest pain, palpitations, orthopnea, paroxysmal nocturnal dyspnea, edema, light headedness, other Gastrointestinal: negative: Nausea, Vomiting, Abdominal Pain, Diarrhea, Constipation, Melena, Hematochezia, Other Genitourinary: negative: Dysuria, Frequency, Incontinence, Hematuria, Retention , Other Musculoskeletal: negative: Neck Pain, Shoulder Pain, Arm Pain, Back Pain, Hand Pain, Leg Pain, Foot Pain, Other Skin: negative: Rash, Lesions, Donnell, Bruising, Other - Medications/Allergies Allergies/Adverse Reactions: Allergies Allergy/AdvReac Type Severity Reaction Status Date / Time ibuprofen Allergy Rash Verified 11/08/17 11:44 Medications: Current Medications Acetaminophen (Tylenol) 650 mg PO Q4H PRN PRN Reason: Headache/Fever/Mild Pain (1-3) Last Admin: 02/04/18 09:46 Dose: 650 mg Albuterol/Ipratropium (Duoneb) 3 ml NEB [id number] [facility] Last Admin: 02/04/18 06:31 Dose: 3 ml Albuterol/Ipratropium (Duoneb) 3 ml NEB Q4H PRN PRN Reason: SOB &/or Wheezing Artificial Tears (Tears Naturale) 2 drop EA EYE PRN PRN PRN Reason: Dry Eyes Betamethasone/Clotrimazole (Lotrisone Cream) 0 gm TOP BID [facility] Last Admin: 02/04/18 09:48 Dose: 1 applic Bisacodyl (Dulcolax) 10 mg PO DAILYPRN PRN PRN Reason: Constipation Last Admin: 01/23/18 15:46 Dose: 10 mg Bisoprolol Fumarate (Zebeta) 5 mg PO DAILY [facility] Last Admin: 02/04/18 09:48 Dose: 5 mg Cholecalciferol (Vitamin D3) 2,000 units PO DAILY [facility] Last Admin: 02/03/18 09:39 Dose: 2,000 units Clopidogrel Bisulfate (Plavix) 75 mg PO DAILY [facility] Last Admin: 02/03/18 09:37 Dose: Not Given Dextrose/Water (Dextrose 50%) 25 gm SLOW IVP PRN PRN PRN Reason: Hypoglycemia Furosemide (Lasix) 40 mg SLOW IVP DAILY [facility] Last Admin: 02/04/18 09:48 Dose: 40 mg Glucagon (Glucagon) 1 mg IM PRN PRN PRN Reason: Hypoglycemia Guaifenesin (Robitussin Sf) 200 mg PO Q4H PRN PRN Reason: Cough Hydralazine HCl (Apresoline) 10 mg SLOW IVP Q4H PRN PRN Reason: SBP > 180 and HR < 70 Dextrose/Water (D5w) 1,000 mls @ 0 mls/hr IV .Q0M PRN PRN Reason: Hypoglycemia Insulin Human Lispro (Humalog) 0 units SC .MILD SLIDING SCALE PRN PRN Reason: Mild Correctional Scale Last Admin: 02/03/18 16:44 Dose: 2 unit Insulin Human Lispro (Humalog) 0 units SC .BEDTIME SLIDING SC PRN PRN Reason: Bedtime Correctional Scale Loperamide HCl (Imodium) 2 mg PO PRN PRN PRN Reason: Diarrhea/Loose Stools Last Admin: 02/02/18 11:24 Dose: 2 mg Loratadine (Claritin) 10 mg PO DAILYPRN PRN PRN Reason: Sinus Symptoms Losartan Potassium (Cozaar) 50 mg PO DAILY [facility] Last Admin: 02/03/18 09:37 Dose: Not Given Metoclopramide HCl (Reglan) 10 mg IVP QID [facility] Last Admin: 02/04/18 09:48 Dose: 10 mg Mineral Oil/White Petrolatum (Eucerin Cream) 0 gm TOP BIDPRN PRN PRN Reason: Dry Skin Montelukast Sodium (Singulair) 10 mg PO HS [facility] Last Admin: 02/03/18 21:21 Dose: 10 mg Morphine Sulfate (Morphine) 2 mg SLOW IVP Q4H PRN PRN Reason: Moderate Pain (4-6) Last Admin: 02/02/18 11:24 Dose: 2 mg Ondansetron HCl (Zofran Odt) 4 mg PO Q6H PRN PRN Reason: Nausea/Vomiting Last Admin: 01/26/18 04:32 Dose: 4 mg Ondansetron HCl (Zofran) 4 mg IVP Q6H PRN PRN Reason: Nausea/Vomiting Last Admin: 01/30/18 07:36 Dose: 4 mg Pantoprazole Sodium (Protonix) 40 mg PO DAILY [facility] Last Admin: 02/03/18 09:39 Dose: 40 mg Polyethylene Glycol (Miralax) 17 gm PO BID [facility] Last Admin: 02/03/18 21:21 Dose: Not Given Promethazine HCl (Phenergan) 12.5 mg IM/IV Q6H PRN PRN Reason: Nausea/Vomiting Last Admin: 01/29/18 00:31 Dose: 12.5 mg Saccharomyces Boulardii (Florastor) 250 mg PO DAILY [facility] Last Admin: 02/03/18 09:39 Dose: 250 mg Senna/Docusate Sodium (Senokot S) 2 tab PO BID [facility] Last Admin: 02/03/18 21:22 Dose: Not Given Sertraline HCl (Zoloft) 50 mg PO DAILY [facility] Last Admin: 02/03/18 09:39 Dose: 50 mg Simethicone (Mylicon Chewable) 80 mg PO Q6H PRN PRN Reason: Gas Pain Last Admin: 02/03/18 23:54 Dose: 80 mg Simvastatin (Zocor) 40 mg PO HS [facility] Last Admin: 02/03/18 21:21 Dose: 40 mg Sodium Chloride (Flush - Normal Saline) 10 ml IVF Q12HR PRN PRN Reason: Saline Flush Last Admin: 02/04/18 09:49 Dose: 10 ml Sodium Chloride (Flush - Normal Saline) 10 ml IVF PRN PRN PRN Reason: Saline Flush Last Admin: 02/04/18 09:49 Dose: 10 ml Sodium Chloride ([place] Nasal [place] 0.65%) 0 ml EA NARE TID PRN PRN Reason: Nasal Congestion Throat Lozenges (Cepastat Lozenges) 1 nimisha PO Q2H PRN PRN Reason: Sore Throat Zolpidem Tartrate (Ambien) 5 mg PO HSPRN PRN PRN Reason: Insomnia Last Admin: 01/23/18 01:36 Dose: 5 mg
[2018-02-04] MEDS: Losartan 25 MG TAB PO SCH (10:10)
[2018-02-04] MEDS: Clopidogrel Bisulfate 75 MG TAB PO SCH (10:10)
[2018-02-04] MEDS: Saccharomyces boulardii 250 MG CAP PO SCH (10:11)
[2018-02-04] MEDS: Polyethylene Glycol 3350 17 GM Packet PO SCH ×2 (10:11→19:22)
[2018-02-04] MEDS: Senokot S 8.6-50 MG TAB PO SCH ×2 (10:11→19:23)
[2018-02-04] MEDS: HumaLOG 300 UNITS/3 ML VIAL SC PRN (14:10)
[2018-02-04] MEDS: HYDROcodone/Acetaminophen 5/325 mg Tablet PO PRN (15:45)
[2018-02-04] MEDS: Simvastatin 40 MG TAB PO SCH (20:38)
[2018-02-04] MEDS: Montelukast Sodium 10 mg Tablet PO SCH (20:38)
[2018-02-05 08:22] LABS: Hemoglobin 10.2 g/dL (12.0-16.0); Mean Corpuscular HGB CONC 31.5 g/dL (32.0-36.0); Mean Corpuscular Hemoglobin 28.2 pg (27.0-31.0); Mean Corpuscular Volume 89.3 fL (78.0-98.0); Mean Platelet Volume 8.2 fL (7.4-10.4); Platelet Count 260 thou/uL (130-400); RBC Distribution Width 23.9 % (11.5-14.5); White Blood Cell (WBC) Count 7.7 thou/uL (4.8-10.8)
[2018-02-05 08:35] LABS: ALT (SGPT) 10 U/L (8-55); AST (SGOT) 37 U/L (5-34); Albumin 2.3 g/dL (3.4-4.8); Alkaline Phosphatase 203 U/L (40-150); Anion Gap 8 mmol/L (10-20); BUN (Urea Nitrogen) 12 mg/dL (9.8-20.1); Bilirubin, Total 0.7 mg/dL (0.2-1.2); Calc. Creatinine Clearance 82 mL/min (70-130); Calcium 8.3 mg/dL (7.8-10.44); Carbon Dioxide 29 mmol/L (23-31); Chloride 101 mmol/L (98-107); Estimated GFR-MDRD 77; Globulin 2.4 g/dL (2.4-3.5); Glucose 102 mg/dL (83-110); Magnesium 1.5 mg/dL (1.6-2.6); Phosphorus 3.7 mg/dL (2.3-4.7); Potassium 3.8 mmol/L (3.5-5.1); Protein, Total 4.7 g/dL (6.0-8.3); Sodium 134 mmol/L (136-145)
[2018-02-05] MEDS: HYDROcodone/Acetaminophen 5/325 mg Tablet PO PRN ×2 (08:54→15:51)
[2018-02-05] MEDS: Losartan 25 MG TAB PO SCH (08:55)
[2018-02-05] MEDS: Furosemide 40 MG/4 ML VIAL SLOW IVP SCH (08:55)
[2018-02-05] MEDS: Bisoprolol Fumarate 5 MG TAB PO SCH (08:55)
[2018-02-05] MEDS: Clopidogrel Bisulfate 75 MG TAB PO SCH (08:56)
[2018-02-05] MEDS: Saccharomyces boulardii 250 MG CAP PO SCH (08:56)
[2018-02-05] MEDS: Polyethylene Glycol 3350 17 GM Packet PO SCH ×2 (08:56→21:06)
[2018-02-05] MEDS: Metoclopramide HCl 10 MG/2 ML VIAL IVP SCH ×4 (08:56→20:35)
[2018-02-05] MEDS: Senokot S 8.6-50 MG TAB PO SCH ×2 (08:57→21:06)
[2018-02-05] MEDS ORDERED: Magnesium Sulfate 3 GM in Sodium Chloride 0.9% 100 ML IVPB SCH (09:30)
[2018-02-05 09:57] LABS: #Basophils 0.1 thou/uL (0.0-0.2); #Eosinphils 0.1 thou/uL (0.0-0.7); #Monocytes 1.1 thou/uL (0.11-0.59); #Neutrophils 4.4 thou/uL (1.40-6.50); %Basophils 1.4 % (0.0-1.0); %Eosinophils 0.9 % (0.0-10.0); %Lymphocytes 25.9 % (21.0-51.0); %Monocytes 13.9 % (0.0-10.0); %Neutrophils 57.9 % (42.0-75.0); MDiff Complete? YES; Macrocytosis SLIGHT = 6-15 cells (100X) (0-5/hpf); Microcytosis MODERATE=15-30 cells (100X) (0-5/hpf); PLT Morphology Comment Appears Adequate; Polychromasia SLIGHT = 2-3 cells (100X) (0-2/hpf); Small Platelets MODERATE
--- NOTE | 2018-02-05 10:21 | PDOC.PN ---
- Subjective Encounter Start Date: 02/05/18 Encounter Start Time: 07:00 Patient seen and examined. No new complaints. No overnight events pt still has some rib cage pain and bloating - Objective Resuscitation Status - Order Detail: 01/21/18 21:48 Resuscitation Status Routine Resuscitation Status: FULL: Full Resuscitation MAR Reviewed: Yes Vital Signs & Weight: Vital Signs (12 hours) Temp Pulse Resp BP Pulse Ox 02/05/18 08:00 97.5 F L 78 18 139/62 93 L 02/05/18 06:23 93 L 02/05/18 06:22 70 12 02/05/18 03:51 91 L 02/05/18 00:48 64 16 96 02/05/18 00:17 95 02/05/18 00:00 89 L 02/04/18 23:53 89 L Weight Admit Weight 180 lb 1 oz Weight 180 lb 1 oz I&O: 02/04/18 02/05/18 02/06/18 06:59 06:59 06:59 Intake Total 900 Balance 900 Result Diagrams: 02/05/18 07:54 02/05/18 07:54 Additional Labs: Accuchecks 02/05/18 02/04/18 02/04/18 05:24 20:33 16:00 POC Glucose 106 143 H 151 H 02/04/18 11:15 POC Glucose 194 H Phys Exam - Physical Examination Constitutional: NAD HEENT: PERRLA, moist MMs, sclera anicteric Neck: no JVD, supple Respiratory: no wheezing, no rales, no rhonchi Cardiovascular: RRR, no significant murmur, no rub Gastrointestinal: soft, non-tender, no distention, positive bowel sounds Musculoskeletal: pulses present, edema present Neurological: non-focal, normal sensation, moves all 4 limbs Psychiatric: normal affect, A&O x 3 Skin: no rash, normal turgor Dx/Plan (1) Acute kidney injury Code(s): N17.9 - ACUTE KIDNEY FAILURE, UNSPECIFIED Status: Resolved (2) Hypokalemia Code(s): E87.6 - HYPOKALEMIA Status: Resolved (3) Hyponatremia Code(s): E87.1 - HYPO-OSMOLALITY AND HYPONATREMIA Status: Resolved (4) Hypotension Status: Resolved (5) Left lower lobe pneumonia Code(s): J18.1 - LOBAR PNEUMONIA, UNSPECIFIED ORGANISM Status: Resolved (6) Pancytopenia due to chemotherapy Code(s): D61.810 - ANTINEOPLASTIC CHEMOTHERAPY INDUCED PANCYTOPENIA Status: Resolved (7) 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 Code(s): C78.7 - SECONDARY MALIG NEOPLASM OF LIVER AND INTRAHEPATIC BILE DUCT; C80.1 - MALIGNANT (PRIMARY) NEOPLASM, UNSPECIFIED Status: Acute Comment: poorly differentiated carcinoma (8) Anxiety and depression Code(s): F41.9 - ANXIETY DISORDER, UNSPECIFIED; F32.9 - MAJOR DEPRESSIVE DISORDER, SINGLE EPISODE, UNSPECIFIED Status: Chronic (9) Dyslipidemia Code(s): E78.5 - HYPERLIPIDEMIA, UNSPECIFIED Status: Chronic (10) Hypertension Code(s): I10 - ESSENTIAL (PRIMARY) HYPERTENSION Status: Chronic (11) Physical deconditioning Code(s): R53.81 - OTHER MALAISE Status: Acute (12) Hypomagnesemia Code(s): E83.42 - HYPOMAGNESEMIA Status: Acute - 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 * await placement Review of Systems - Review of Systems Constitutional: weakness. negative: fever, chills, sweats, malaise, other ENT: negative: Ear Pain, Ear Discharge, Nose Pain, Nose Discharge, Nose Congestion, Mouth Pain, Mouth Swelling, Throat Pain, Throat Swelling, Other Respiratory: negative: Cough, Dry, Shortness of Breath, Hemoptysis, SOB with Excertion, Pleuritic Pain, Sputum, Wheezing Cardiovascular: edema. negative: chest pain, palpitations, orthopnea, paroxysmal nocturnal dyspnea, light headedness, other Gastrointestinal: negative: Nausea, Vomiting, Abdominal Pain, Diarrhea, Constipation, Melena, Hematochezia, Other Genitourinary: negative: Dysuria, Frequency, Incontinence, Hematuria, Retention , Other Musculoskeletal: negative: Neck Pain, Shoulder Pain, Arm Pain, Back Pain, Hand Pain, Leg Pain, Foot Pain, Other Skin: negative: Rash, Lesions, Donnell, Bruising, Other - Medications/Allergies Allergies/Adverse Reactions: Allergies Allergy/AdvReac Type Severity Reaction Status Date / Time ibuprofen Allergy Rash Verified 11/08/17 11:44 Medications: Current Medications Acetaminophen (Tylenol) 650 mg PO Q4H PRN PRN Reason: Headache/Fever/Mild Pain (1-3) Last Admin: 02/04/18 09:46 Dose: 650 mg Hydrocodone Bitart/Acetaminophen ([place] 5/325) 1 tab PO Q4H PRN PRN Reason: Moderate Pain (4-6) Hydrocodone Bitart/Acetaminophen ([place] 5/325) 2 tab PO Q4H PRN PRN Reason: Severe Pain (7-10) Last Admin: 02/05/18 08:54 Dose: 2 tab Albuterol/Ipratropium (Duoneb) 3 ml NEB [id number] [facility] Last Admin: 02/05/18 06:22 Dose: 3 ml Albuterol/Ipratropium (Duoneb) 3 ml NEB Q4H PRN PRN Reason: SOB &/or Wheezing Artificial Tears (Tears Naturale) 2 drop EA EYE PRN PRN PRN Reason: Dry Eyes Betamethasone/Clotrimazole (Lotrisone Cream) 0 gm TOP BID [facility] Last Admin: 02/05/18 08:56 Dose: Not Given Bisacodyl (Dulcolax) 10 mg PO DAILYPRN PRN PRN Reason: Constipation Last Admin: 01/23/18 15:46 Dose: 10 mg Bisoprolol Fumarate (Zebeta) 5 mg PO DAILY [facility] Last Admin: 02/05/18 08:55 Dose: 5 mg Cholecalciferol (Vitamin D3) 2,000 units PO DAILY [facility] Last Admin: 02/05/18 08:56 Dose: Not Given Clopidogrel Bisulfate (Plavix) 75 mg PO DAILY [facility] Last Admin: 02/05/18 08:56 Dose: Not Given Dextrose/Water (Dextrose 50%) 25 gm SLOW IVP PRN PRN PRN Reason: Hypoglycemia Furosemide (Lasix) 40 mg SLOW IVP DAILY [facility] Last Admin: 02/05/18 08:55 Dose: 40 mg Glucagon (Glucagon) 1 mg IM PRN PRN PRN Reason: Hypoglycemia Guaifenesin (Robitussin Sf) 200 mg PO Q4H PRN PRN Reason: Cough Hydralazine HCl (Apresoline) 10 mg SLOW IVP Q4H PRN PRN Reason: SBP > 180 and HR < 70 Dextrose/Water (D5w) 1,000 mls @ 0 mls/hr IV .Q0M PRN PRN Reason: Hypoglycemia Magnesium Sulfate 3 gm/ Sodium (Chloride) 106 mls @ 100 mls/hr IVPB ONE [facility] Stop: 02/05/18 12:00 Insulin Human Lispro (Humalog) 0 units SC .MILD SLIDING SCALE PRN PRN Reason: Mild Correctional Scale Last Admin: 02/04/18 14:10 Dose: 2 unit Insulin Human Lispro (Humalog) 0 units SC .BEDTIME SLIDING SC PRN PRN Reason: Bedtime Correctional Scale Loperamide HCl (Imodium) 2 mg PO PRN PRN PRN Reason: Diarrhea/Loose Stools Last Admin: 02/02/18 11:24 Dose: 2 mg Loratadine (Claritin) 10 mg PO DAILYPRN PRN PRN Reason: Sinus Symptoms Losartan Potassium (Cozaar) 50 mg PO DAILY [facility] Last Admin: 02/05/18 08:55 Dose: 50 mg Metoclopramide HCl (Reglan) 10 mg IVP QID [facility] Last Admin: 02/05/18 08:56 Dose: 10 mg Mineral Oil/White Petrolatum (Eucerin Cream) 0 gm TOP BIDPRN PRN PRN Reason: Dry Skin Montelukast Sodium (Singulair) 10 mg PO [facility] Last Admin: 02/04/18 20:38 Dose: 10 mg Morphine Sulfate (Morphine) 2 mg SLOW IVP Q4H PRN PRN Reason: Moderate Pain (4-6) Last Admin: 02/02/18 11:24 Dose: 2 mg Ondansetron HCl (Zofran Odt) 4 mg PO Q6H PRN PRN Reason: Nausea/Vomiting Last Admin: 01/26/18 04:32 Dose: 4 mg Ondansetron HCl (Zofran) 4 mg IVP Q6H PRN PRN Reason: Nausea/Vomiting Last Admin: 01/30/18 07:36 Dose: 4 mg Pantoprazole Sodium (Protonix) 40 mg PO DAILY [facility] Last Admin: 02/05/18 08:55 Dose: 40 mg Polyethylene Glycol (Miralax) 17 gm PO BID [facility] Last Admin: 02/05/18 08:56 Dose: Not Given Promethazine HCl (Phenergan) 12.5 mg IM/IV Q6H PRN PRN Reason: Nausea/Vomiting Last Admin: 01/29/18 00:31 Dose: 12.5 mg Saccharomyces Boulardii (Florastor) 250 mg PO DAILY [facility] Last Admin: 02/05/18 08:56 Dose: Not Given Senna/Docusate Sodium (Senokot S) 2 tab PO BID [facility] Last Admin: 02/05/18 08:57 Dose: Not Given Sertraline HCl (Zoloft) 50 mg PO DAILY [facility] Last Admin: 02/05/18 08:57 Dose: Not Given Simethicone (Mylicon Chewable) 80 mg PO Q6H PRN PRN Reason: Gas Pain Last Admin: 02/03/18 23:54 Dose: 80 mg Simvastatin (Zocor) 40 mg PO HS [facility] Last Admin: 02/04/18 20:38 Dose: 40 mg Sodium Chloride (Flush - Normal Saline) 10 ml IVF Q12HR PRN PRN Reason: Saline Flush Last Admin: 02/05/18 08:56 Dose: 10 ml Sodium Chloride (Flush - Normal Saline) 10 ml IVF PRN PRN PRN Reason: Saline Flush Last Admin: 02/04/18 09:49 Dose: 10 ml Sodium Chloride ([place] Nasal [place] 0.65%) 0 ml EA NARE TID PRN PRN Reason: Nasal Congestion Throat Lozenges (Cepastat Lozenges) 1 nimisha PO Q2H PRN PRN Reason: Sore Throat Zolpidem Tartrate (Ambien) 5 mg PO HSPRN PRN PRN Reason: Insomnia Last Admin: 01/23/18 01:36 Dose: 5 mg
[2018-02-05] MEDS: HumaLOG 300 UNITS/3 ML VIAL SC PRN (17:58)
[2018-02-05] MEDS: Bisacodyl 5 MG TAB PO PRN (18:01)
[2018-02-05] MEDS: Ondansetron PF 4 MG/2 ML Vial IVP PRN (20:33)
[2018-02-05] MEDS: Simvastatin 40 MG TAB PO SCH (21:06)
[2018-02-05] MEDS: Montelukast Sodium 10 mg Tablet PO SCH (21:07)
[2018-02-06] MEDS: Saccharomyces boulardii 250 MG CAP PO SCH (10:53)
[2018-02-06] MEDS: Furosemide 40 MG/4 ML VIAL SLOW IVP SCH (10:53)
[2018-02-06] MEDS: Metoclopramide HCl 10 MG/2 ML VIAL IVP SCH ×4 (10:53→21:23)
[2018-02-06] MEDS: Senokot S 8.6-50 MG TAB PO SCH ×2 (10:53→21:32)
[2018-02-06] MEDS: Bisoprolol Fumarate 5 MG TAB PO SCH (10:55)
[2018-02-06] MEDS: Losartan 25 MG TAB PO SCH (10:56)
[2018-02-06] MEDS: Clopidogrel Bisulfate 75 MG TAB PO SCH (10:56)
[2018-02-06] MEDS: Polyethylene Glycol 3350 17 GM Packet PO SCH ×2 (10:57→21:24)
--- NOTE | 2018-02-06 12:10 | PDOC.PN ---
- Subjective Encounter Start Date: 02/06/18 Encounter Start Time: 10:00 she has still edema of legs, Patient seen and examined. No new complaints. No overnight events - Objective Resuscitation Status - Order Detail: 01/21/18 21:48 Resuscitation Status Routine Resuscitation Status: FULL: Full Resuscitation MAR Reviewed: Yes Vital Signs & Weight: Vital Signs (12 hours) Temp Pulse Resp BP Pulse Ox 02/06/18 11:00 98.2 F 82 18 112/53 L 92 L 02/06/18 07:55 97.8 F 81 18 109/57 L 93 L 02/06/18 06:34 95 02/06/18 06:32 74 16 95 02/06/18 04:18 97.7 F 75 16 97/49 L 92 L 02/06/18 02:06 68 12 98/50 L Weight Admit Weight 180 lb 1 oz Weight 180 lb 1 oz I&O: 02/05/18 02/06/18 02/07/18 06:59 06:59 06:59 Intake Total 900 1100 Output Total 200 Balance 900 900 Result Diagrams: 02/05/18 07:54 02/05/18 07:54 Additional Labs: Accuchecks 02/06/18 02/06/18 02/05/18 11:31 05:26 20:22 POC Glucose 177 H 124 H 133 H 02/05/18 02/05/18 16:47 12:01 POC Glucose 206 H 165 H Radiology Reviewed by me: Yes (us leg) Phys Exam - Physical Examination Constitutional: NAD HEENT: PERRLA, moist MMs, sclera anicteric Neck: no JVD, supple Respiratory: no wheezing, no rales, no rhonchi Cardiovascular: RRR, no significant murmur, no rub Gastrointestinal: soft, non-tender, no distention, positive bowel sounds Musculoskeletal: pulses present, edema present Neurological: non-focal, normal sensation, moves all 4 limbs Psychiatric: normal affect, A&O x 3 Skin: no rash, normal turgor Dx/Plan (1) Acute kidney injury Code(s): N17.9 - ACUTE KIDNEY FAILURE, UNSPECIFIED Status: Resolved (2) Hypokalemia Code(s): E87.6 - HYPOKALEMIA Status: Resolved (3) Hyponatremia Code(s): E87.1 - HYPO-OSMOLALITY AND HYPONATREMIA Status: Resolved (4) Hypotension Status: Resolved (5) Left lower lobe pneumonia Code(s): J18.1 - LOBAR PNEUMONIA, UNSPECIFIED ORGANISM Status: Resolved (6) Pancytopenia due to chemotherapy Code(s): D61.810 - ANTINEOPLASTIC CHEMOTHERAPY INDUCED PANCYTOPENIA Status: Resolved (7) 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 Code(s): C78.7 - SECONDARY MALIG NEOPLASM OF LIVER AND INTRAHEPATIC BILE DUCT; C80.1 - MALIGNANT (PRIMARY) NEOPLASM, UNSPECIFIED Status: Acute Comment: poorly differentiated carcinoma (8) Anxiety and depression Code(s): F41.9 - ANXIETY DISORDER, UNSPECIFIED; F32.9 - MAJOR DEPRESSIVE DISORDER, SINGLE EPISODE, UNSPECIFIED Status: Chronic (9) Dyslipidemia Code(s): E78.5 - HYPERLIPIDEMIA, UNSPECIFIED Status: Chronic (10) Hypertension Code(s): I10 - ESSENTIAL (PRIMARY) HYPERTENSION Status: Chronic (11) Physical deconditioning Code(s): R53.81 - OTHER MALAISE Status: Acute (12) Hypomagnesemia Code(s): E83.42 - HYPOMAGNESEMIA Status: Acute - Plan 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 Review of Systems - Review of Systems Constitutional: weakness. negative: fever, chills, sweats, malaise, other ENT: negative: Ear Pain, Ear Discharge, Nose Pain, Nose Discharge, Nose Congestion, Mouth Pain, Mouth Swelling, Throat Pain, Throat Swelling, Other Respiratory: negative: Cough, Dry, Shortness of Breath, Hemoptysis, SOB with Excertion, Pleuritic Pain, Sputum, Wheezing Cardiovascular: edema Gastrointestinal: negative: Nausea, Vomiting, Abdominal Pain, Diarrhea, Constipation, Melena, Hematochezia, Other Genitourinary: negative: Dysuria, Frequency, Incontinence, Hematuria, Retention , Other Musculoskeletal: negative: Neck Pain, Shoulder Pain, Arm Pain, Back Pain, Hand Pain, Leg Pain, Foot Pain, Other Skin: negative: Rash, Lesions, Donnell, Bruising, Other - Medications/Allergies Allergies/Adverse Reactions: Allergies Allergy/AdvReac Type Severity Reaction Status Date / Time ibuprofen Allergy Rash Verified 11/08/17 11:44 Medications: Current Medications Acetaminophen (Tylenol) 650 mg PO Q4H PRN PRN Reason: Headache/Fever/Mild Pain (1-3) Last Admin: 02/04/18 09:46 Dose: 650 mg Hydrocodone Bitart/Acetaminophen ([place] 5/325) 1 tab PO Q4H PRN PRN Reason: Moderate Pain (4-6) Hydrocodone Bitart/Acetaminophen ([place] 5/325) 2 tab PO Q4H PRN PRN Reason: Severe Pain (7-10) Last Admin: 02/05/18 15:51 Dose: 2 tab Albuterol/Ipratropium (Duoneb) 3 ml NEB [id number] [facility] Last Admin: 02/06/18 06:32 Dose: 3 ml Albuterol/Ipratropium (Duoneb) 3 ml NEB Q4H PRN PRN Reason: SOB &/or Wheezing Artificial Tears (Tears Naturale) 2 drop EA EYE PRN PRN PRN Reason: Dry Eyes Betamethasone/Clotrimazole (Lotrisone Cream) 0 gm TOP BID [facility] Last Admin: 02/06/18 10:56 Dose: Not Given Bisacodyl (Dulcolax) 10 mg PO DAILYPRN PRN PRN Reason: Constipation Last Admin: 02/05/18 18:01 Dose: 10 mg Bisoprolol Fumarate (Zebeta) 5 mg PO DAILY [facility] Last Admin: 02/06/18 10:55 Dose: Not Given Cholecalciferol (Vitamin D3) 2,000 units PO DAILY [facility] Last Admin: 02/06/18 10:56 Dose: Not Given Clopidogrel Bisulfate (Plavix) 75 mg PO DAILY [facility] Last Admin: 02/06/18 10:56 Dose: Not Given Dextrose/Water (Dextrose 50%) 25 gm SLOW IVP PRN PRN PRN Reason: Hypoglycemia Furosemide (Lasix) 40 mg SLOW IVP DAILY [facility] Last Admin: 02/06/18 10:53 Dose: 40 mg Glucagon (Glucagon) 1 mg IM PRN PRN PRN Reason: Hypoglycemia Guaifenesin (Robitussin Sf) 200 mg PO Q4H PRN PRN Reason: Cough Hydralazine HCl (Apresoline) 10 mg SLOW IVP Q4H PRN PRN Reason: SBP > 180 and HR < 70 Dextrose/Water (D5w) 1,000 mls @ 0 mls/hr IV .Q0M PRN PRN Reason: Hypoglycemia Insulin Human Lispro (Humalog) 0 units SC .MILD SLIDING SCALE PRN PRN Reason: Mild Correctional Scale Last Admin: 02/05/18 17:58 Dose: 3 unit Insulin Human Lispro (Humalog) 0 units SC .BEDTIME SLIDING SC PRN PRN Reason: Bedtime Correctional Scale Loperamide HCl (Imodium) 2 mg PO PRN PRN PRN Reason: Diarrhea/Loose Stools Last Admin: 02/02/18 11:24 Dose: 2 mg Loratadine (Claritin) 10 mg PO DAILYPRN PRN PRN Reason: Sinus Symptoms Losartan Potassium (Cozaar) 50 mg PO DAILY [facility] Last Admin: 02/06/18 10:56 Dose: Not Given Metoclopramide HCl (Reglan) 10 mg IVP QID [facility] Last Admin: 02/06/18 10:53 Dose: 10 mg Mineral Oil/White Petrolatum (Eucerin Cream) 0 gm TOP BIDPRN PRN PRN Reason: Dry Skin Montelukast Sodium (Singulair) 10 mg PO [facility] Last Admin: 02/05/18 21:07 Dose: 10 mg Morphine Sulfate (Morphine) 2 mg SLOW IVP Q4H PRN PRN Reason: Moderate Pain (4-6) Last Admin: 02/02/18 11:24 Dose: 2 mg Ondansetron HCl (Zofran Odt) 4 mg PO Q6H PRN PRN Reason: Nausea/Vomiting Last Admin: 01/26/18 04:32 Dose: 4 mg Ondansetron HCl (Zofran) 4 mg IVP Q6H PRN PRN Reason: Nausea/Vomiting Last Admin: 02/05/18 20:33 Dose: 4 mg Pantoprazole Sodium (Protonix) 40 mg PO DAILY [facility] Last Admin: 02/06/18 10:54 Dose: 40 mg Polyethylene Glycol (Miralax) 17 gm PO BID [facility] Last Admin: 02/06/18 10:57 Dose: Not Given Promethazine HCl (Phenergan) 12.5 mg IM/IV Q6H PRN PRN Reason: Nausea/Vomiting Last Admin: 01/29/18 00:31 Dose: 12.5 mg Saccharomyces Boulardii (Florastor) 250 mg PO DAILY [facility] Last Admin: 02/06/18 10:53 Dose: 250 mg Senna/Docusate Sodium (Senokot S) 2 tab PO BID [facility] Last Admin: 02/06/18 10:53 Dose: 2 tab Sertraline HCl (Zoloft) 50 mg PO DAILY [facility] Last Admin: 02/06/18 10:57 Dose: Not Given Simethicone (Mylicon Chewable) 80 mg PO Q6H PRN PRN Reason: Gas Pain Last Admin: 02/03/18 23:54 Dose: 80 mg Simvastatin (Zocor) 40 mg PO HS [facility] Last Admin: 02/05/18 21:06 Dose: 40 mg Sodium Chloride (Flush - Normal Saline) 10 ml IVF Q12HR PRN PRN Reason: Saline Flush Last Admin: 02/06/18 10:55 Dose: 10 ml Sodium Chloride (Flush - Normal Saline) 10 ml IVF PRN PRN PRN Reason: Saline Flush Last Admin: 02/05/18 17:58 Dose: 10 ml Sodium Chloride ([place] Nasal [place] 0.65%) 0 ml EA NARE TID PRN PRN Reason: Nasal Congestion Throat Lozenges (Cepastat Lozenges) 1 nimisha PO Q2H PRN PRN Reason: Sore Throat Zolpidem Tartrate (Ambien) 5 mg PO HSPRN PRN PRN Reason: Insomnia Last Admin: 01/23/18 01:36 Dose: 5 mg
--- NOTE | 2018-02-06 12:57 | ULT ---
BILATERAL LOWER EXTREMITY VENOUS DOPPLER ULTRASOUND: Date: 02/06/18 HISTORY: Bilateral lower extremity edema and pain. TECHNIQUE: Lloyd scale ultrasound with color flow and spectral Doppler imaging of the deep venous systems of the lower extremities was performed bilaterally. FINDINGS: There is good flow, compression, and augmentation noted in the common femoral, femoral, deep femoral, popliteal, posterior tibial, and greater saphenous veins on either side. IMPRESSION: No evidence of deep venous thrombosis in either lower extremity. POS: OFF
[2018-02-06] MEDS: HYDROcodone/Acetaminophen 5/325 mg Tablet PO PRN (15:38)
[2018-02-06] MEDS: Montelukast Sodium 10 mg Tablet PO SCH (21:31)
[2018-02-06] MEDS: Simvastatin 40 MG TAB PO SCH (21:32)
[2018-02-07] MEDS: Polyethylene Glycol 3350 17 GM Packet PO SCH ×2 (09:29→20:21)
[2018-02-07] MEDS: Senokot S 8.6-50 MG TAB PO SCH ×2 (09:29→20:17)
[2018-02-07] MEDS: Losartan 25 MG TAB PO SCH (09:30)
[2018-02-07] MEDS: Clopidogrel Bisulfate 75 MG TAB PO SCH (09:30)
[2018-02-07] MEDS: Bisoprolol Fumarate 5 MG TAB PO SCH (09:30)
[2018-02-07] MEDS: Metoclopramide HCl 10 MG/2 ML VIAL IVP SCH ×4 (09:31→20:18)
[2018-02-07] MEDS: Saccharomyces boulardii 250 MG CAP PO SCH (09:36)
[2018-02-07] MEDS ORDERED: Fleet Enema 133 ML BOT FS SCH (09:45)
--- NOTE | 2018-02-07 10:43 | PDOC.PN ---
- Subjective Encounter Start Date: 02/07/18 Encounter Start Time: 07:00 Patient seen and examined. No new complaints. No overnight events - Objective Resuscitation Status - Order Detail: 01/21/18 21:48 Resuscitation Status Routine Resuscitation Status: FULL: Full Resuscitation MAR Reviewed: Yes Vital Signs & Weight: Vital Signs (12 hours) Temp Pulse Resp BP Pulse Ox 02/07/18 08:18 97 02/07/18 08:03 73 16 97 02/07/18 08:00 97.3 F L 76 18 94/42 L 94 L 02/07/18 04:00 97.9 F 74 16 104/50 L 93 L 02/07/18 00:00 97.6 F 77 16 101/48 L 96 02/06/18 23:51 73 18 98 Weight Admit Weight 180 lb 1 oz Weight 180 lb 1 oz I&O: 02/06/18 02/07/18 02/08/18 06:59 06:59 06:59 Intake Total 1100 1280 Output Total 200 Balance 900 1280 Result Diagrams: 02/05/18 07:54 02/05/18 07:54 Additional Labs: Accuchecks 02/07/18 02/06/18 02/06/18 05:33 20:19 16:02 POC Glucose 117 H 153 H 169 H 02/06/18 11:31 POC Glucose 177 H Phys Exam - Physical Examination Constitutional: NAD HEENT: PERRLA, moist MMs, sclera anicteric Neck: no JVD, supple Respiratory: no wheezing, no rales, no rhonchi Cardiovascular: RRR, no significant murmur, no rub Gastrointestinal: soft, non-tender, no distention, positive bowel sounds Musculoskeletal: pulses present, edema present Neurological: non-focal, normal sensation, moves all 4 limbs Psychiatric: normal affect, A&O x 3 Skin: no rash, normal turgor Dx/Plan (1) Acute kidney injury Code(s): N17.9 - ACUTE KIDNEY FAILURE, UNSPECIFIED Status: Resolved (2) Hypokalemia Code(s): E87.6 - HYPOKALEMIA Status: Resolved (3) Hyponatremia Code(s): E87.1 - HYPO-OSMOLALITY AND HYPONATREMIA Status: Resolved (4) Hypotension Status: Resolved (5) Left lower lobe pneumonia Code(s): J18.1 - LOBAR PNEUMONIA, UNSPECIFIED ORGANISM Status: Resolved (6) Pancytopenia due to chemotherapy Code(s): D61.810 - ANTINEOPLASTIC CHEMOTHERAPY INDUCED PANCYTOPENIA Status: Resolved (7) 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 Code(s): C78.7 - SECONDARY MALIG NEOPLASM OF LIVER AND INTRAHEPATIC BILE DUCT; C80.1 - MALIGNANT (PRIMARY) NEOPLASM, UNSPECIFIED Status: Acute Comment: poorly differentiated carcinoma (8) Anxiety and depression Code(s): F41.9 - ANXIETY DISORDER, UNSPECIFIED; F32.9 - MAJOR DEPRESSIVE DISORDER, SINGLE EPISODE, UNSPECIFIED Status: Chronic (9) Dyslipidemia Code(s): E78.5 - HYPERLIPIDEMIA, UNSPECIFIED Status: Chronic (10) Hypertension Code(s): I10 - ESSENTIAL (PRIMARY) HYPERTENSION Status: Chronic (11) Physical deconditioning Code(s): R53.81 - OTHER MALAISE Status: Acute (12) Hypomagnesemia Code(s): E83.42 - HYPOMAGNESEMIA Status: Acute - Plan cont current plan of care, social service assistant * medication reviewed as below * symptomatic treatment * await placement * fleet enema for constipation. Review of Systems - Review of Systems Eyes: negative: Pain, Vision Change, Conjunctivae Inflammation, Eyelid Inflammation, Redness, Other ENT: negative: Ear Pain, Ear Discharge, Nose Pain, Nose Discharge, Nose Congestion, Mouth Pain, Mouth Swelling, Throat Pain, Throat Swelling, Other Respiratory: negative: Cough, Dry, Shortness of Breath, Hemoptysis, SOB with Excertion, Pleuritic Pain, Sputum, Wheezing Cardiovascular: negative: chest pain, palpitations, orthopnea, paroxysmal nocturnal dyspnea, edema, light headedness, other Gastrointestinal: Constipation. negative: Nausea, Vomiting, Abdominal Pain, Diarrhea, Melena, Hematochezia, Other Genitourinary: negative: Dysuria, Frequency, Incontinence, Hematuria, Retention , Other Musculoskeletal: negative: Neck Pain, Shoulder Pain, Arm Pain, Back Pain, Hand Pain, Leg Pain, Foot Pain, Other - Medications/Allergies Allergies/Adverse Reactions: Allergies Allergy/AdvReac Type Severity Reaction Status Date / Time ibuprofen Allergy Rash Verified 11/08/17 11:44 Medications: Current Medications Acetaminophen (Tylenol) 650 mg PO Q4H PRN PRN Reason: Headache/Fever/Mild Pain (1-3) Last Admin: 02/04/18 09:46 Dose: 650 mg Hydrocodone Bitart/Acetaminophen ([place] 5/325) 1 tab PO Q4H PRN PRN Reason: Moderate Pain (4-6) Hydrocodone Bitart/Acetaminophen ([place] 5/325) 2 tab PO Q4H PRN PRN Reason: Severe Pain (7-10) Last Admin: 02/06/18 15:38 Dose: 2 tab Albuterol/Ipratropium (Duoneb) 3 ml NEB [id number] [facility] Last Admin: 02/07/18 08:03 Dose: 3 ml Albuterol/Ipratropium (Duoneb) 3 ml NEB Q4H PRN PRN Reason: SOB &/or Wheezing Artificial Tears (Tears Naturale) 2 drop EA EYE PRN PRN PRN Reason: Dry Eyes Betamethasone/Clotrimazole (Lotrisone Cream) 0 gm TOP BID [facility] Last Admin: 02/07/18 09:31 Dose: Not Given Bisacodyl (Dulcolax) 10 mg PO DAILYPRN PRN PRN Reason: Constipation Last Admin: 02/05/18 18:01 Dose: 10 mg Bisoprolol Fumarate (Zebeta) 5 mg PO DAILY [facility] Last Admin: 02/07/18 09:30 Dose: Not Given Cholecalciferol (Vitamin D3) 2,000 units PO DAILY [facility] Last Admin: 02/07/18 09:30 Dose: 2,000 units Clopidogrel Bisulfate (Plavix) 75 mg PO DAILY [facility] Last Admin: 02/07/18 09:30 Dose: 75 mg Dextrose/Water (Dextrose 50%) 25 gm SLOW IVP PRN PRN PRN Reason: Hypoglycemia Furosemide (Lasix) 40 mg SLOW IVP DAILY [facility] Last Admin: 02/06/18 10:53 Dose: 40 mg Glucagon (Glucagon) 1 mg IM PRN PRN PRN Reason: Hypoglycemia Guaifenesin (Robitussin Sf) 200 mg PO Q4H PRN PRN Reason: Cough Hydralazine HCl (Apresoline) 10 mg SLOW IVP Q4H PRN PRN Reason: SBP > 180 and HR < 70 Dextrose/Water (D5w) 1,000 mls @ 0 mls/hr IV .Q0M PRN PRN Reason: Hypoglycemia Insulin Human Lispro (Humalog) 0 units SC .MILD SLIDING SCALE PRN PRN Reason: Mild Correctional Scale Last Admin: 02/05/18 17:58 Dose: 3 unit Insulin Human Lispro (Humalog) 0 units SC .BEDTIME SLIDING SC PRN PRN Reason: Bedtime Correctional Scale Loperamide HCl (Imodium) 2 mg PO PRN PRN PRN Reason: Diarrhea/Loose Stools Last Admin: 02/02/18 11:24 Dose: 2 mg Loratadine (Claritin) 10 mg PO DAILYPRN PRN PRN Reason: Sinus Symptoms Losartan Potassium (Cozaar) 50 mg PO DAILY [facility] Last Admin: 02/07/18 09:30 Dose: 50 mg Metoclopramide HCl (Reglan) 10 mg IVP QID [facility] Last Admin: 02/07/18 09:31 Dose: 10 mg Mineral Oil/White Petrolatum (Eucerin Cream) 0 gm TOP BIDPRN PRN PRN Reason: Dry Skin Montelukast Sodium (Singulair) 10 mg PO [facility] Last Admin: 02/06/18 21:31 Dose: 10 mg Morphine Sulfate (Morphine) 2 mg SLOW IVP Q4H PRN PRN Reason: Moderate Pain (4-6) Last Admin: 02/02/18 11:24 Dose: 2 mg Ondansetron HCl (Zofran Odt) 4 mg PO Q6H PRN PRN Reason: Nausea/Vomiting Last Admin: 01/26/18 04:32 Dose: 4 mg Ondansetron HCl (Zofran) 4 mg IVP Q6H PRN PRN Reason: Nausea/Vomiting Last Admin: 02/05/18 20:33 Dose: 4 mg Pantoprazole Sodium (Protonix) 40 mg PO DAILY [facility] Last Admin: 02/07/18 09:29 Dose: 40 mg Polyethylene Glycol (Miralax) 17 gm PO BID [facility] Last Admin: 02/07/18 09:29 Dose: 17 gm Promethazine HCl (Phenergan) 12.5 mg IM/IV Q6H PRN PRN Reason: Nausea/Vomiting Last Admin: 01/29/18 00:31 Dose: 12.5 mg Saccharomyces Boulardii (Florastor) 250 mg PO DAILY [facility] Last Admin: 02/07/18 09:36 Dose: Not Given Senna/Docusate Sodium (Senokot S) 2 tab PO BID [facility] Last Admin: 02/07/18 09:29 Dose: 2 tab Sertraline HCl (Zoloft) 50 mg PO DAILY [facility] Last Admin: 02/07/18 09:29 Dose: 50 mg Simethicone (Mylicon Chewable) 80 mg PO Q6H PRN PRN Reason: Gas Pain Last Admin: 02/03/18 23:54 Dose: 80 mg Simvastatin (Zocor) 40 mg PO HS [facility] Last Admin: 02/06/18 21:32 Dose: 40 mg Sodium Biphosphate/Sodium Phosphate (Fleet Enema) 133 ml FS NOW [facility] Stop: 02/07/18 18:00 Sodium Chloride (Flush - Normal Saline) 10 ml IVF Q12HR PRN PRN Reason: Saline Flush Last Admin: 02/06/18 21:23 Dose: 10 ml Sodium Chloride (Flush - Normal Saline) 10 ml IVF PRN PRN PRN Reason: Saline Flush Last Admin: 02/06/18 16:59 Dose: 10 ml Sodium Chloride ([place] Nasal [place] 0.65%) 0 ml EA NARE TID PRN PRN Reason: Nasal Congestion Throat Lozenges (Cepastat Lozenges) 1 nimisha PO Q2H PRN PRN Reason: Sore Throat Zolpidem Tartrate (Ambien) 5 mg PO HSPRN PRN PRN Reason: Insomnia Last Admin: 01/23/18 01:36 Dose: 5 mg
[2018-02-07] MEDS: Furosemide 40 MG/4 ML VIAL SLOW IVP SCH (11:37)
[2018-02-07] MEDS ORDERED: Hydrocortisone 2.5%/Pramoxine 1% CRM 30 GM TUBE TOP PRN (16:06)
[2018-02-07] MEDS: Simvastatin 40 MG TAB PO SCH (20:18)
[2018-02-07] MEDS: Montelukast Sodium 10 mg Tablet PO SCH (20:18)
[2018-02-08] MEDS: Losartan 25 MG TAB PO SCH (09:01)
[2018-02-08] MEDS: Clopidogrel Bisulfate 75 MG TAB PO SCH (09:01)
[2018-02-08] MEDS: Saccharomyces boulardii 250 MG CAP PO SCH (09:01)
[2018-02-08] MEDS: Bisoprolol Fumarate 5 MG TAB PO SCH (09:01)
[2018-02-08] MEDS: Polyethylene Glycol 3350 17 GM Packet PO SCH ×2 (09:02→20:43)
[2018-02-08] MEDS: Senokot S 8.6-50 MG TAB PO SCH ×2 (09:03→20:43)
[2018-02-08] MEDS: Furosemide 40 MG/4 ML VIAL SLOW IVP SCH (09:10)
--- NOTE | 2018-02-08 09:28 | PDOC.PN ---
- Subjective Encounter Start Date: 02/08/18 Encounter Start Time: 07:10 Patient seen and examined. No new complaints. No overnight events - Objective Resuscitation Status - Order Detail: 01/21/18 21:48 Resuscitation Status Routine Resuscitation Status: FULL: Full Resuscitation MAR Reviewed: Yes Vital Signs & Weight: Vital Signs (12 hours) Temp Pulse Resp Pulse Ox 02/08/18 08:00 98.4 F 83 18 92 L 02/08/18 07:46 95 02/08/18 07:44 77 16 95 02/08/18 00:36 95 02/08/18 00:33 75 18 95 Weight Admit Weight 180 lb 1 oz Weight 180 lb 1 oz I&O: 02/07/18 02/08/18 02/09/18 06:59 06:59 06:59 Intake Total 1280 1000 Output Total 700 Balance 1280 300 Result Diagrams: 02/05/18 07:54 02/05/18 07:54 Additional Labs: Accuchecks 02/08/18 02/07/18 02/07/18 05:27 20:25 16:13 POC Glucose 137 H 198 H 211 H 02/07/18 11:14 POC Glucose 140 H Phys Exam - Physical Examination Constitutional: NAD HEENT: PERRLA, moist MMs, sclera anicteric Neck: no JVD, supple Respiratory: no wheezing, no rales, no rhonchi Cardiovascular: RRR, no significant murmur, no rub Gastrointestinal: soft, non-tender, no distention, positive bowel sounds Musculoskeletal: no edema, pulses present Neurological: non-focal, normal sensation Lymphatic: no nodes Psychiatric: normal affect, A&O x 3 Skin: no rash, normal turgor Dx/Plan (1) Acute kidney injury Code(s): N17.9 - ACUTE KIDNEY FAILURE, UNSPECIFIED Status: Resolved (2) Hypokalemia Code(s): E87.6 - HYPOKALEMIA Status: Resolved (3) Hyponatremia Code(s): E87.1 - HYPO-OSMOLALITY AND HYPONATREMIA Status: Resolved (4) Hypotension Status: Resolved (5) Left lower lobe pneumonia Code(s): J18.1 - LOBAR PNEUMONIA, UNSPECIFIED ORGANISM Status: Resolved (6) Pancytopenia due to chemotherapy Code(s): D61.810 - ANTINEOPLASTIC CHEMOTHERAPY INDUCED PANCYTOPENIA Status: Resolved (7) 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 Code(s): C78.7 - SECONDARY MALIG NEOPLASM OF LIVER AND INTRAHEPATIC BILE DUCT; C80.1 - MALIGNANT (PRIMARY) NEOPLASM, UNSPECIFIED Status: Acute Comment: poorly differentiated carcinoma (8) Anxiety and depression Code(s): F41.9 - ANXIETY DISORDER, UNSPECIFIED; F32.9 - MAJOR DEPRESSIVE DISORDER, SINGLE EPISODE, UNSPECIFIED Status: Chronic (9) Dyslipidemia Code(s): E78.5 - HYPERLIPIDEMIA, UNSPECIFIED Status: Chronic (10) Hypertension Code(s): I10 - ESSENTIAL (PRIMARY) HYPERTENSION Status: Chronic (11) Physical deconditioning Code(s): R53.81 - OTHER MALAISE Status: Acute (12) Hypomagnesemia Code(s): E83.42 - HYPOMAGNESEMIA Status: Acute - Plan cont current plan of care, PT/OT, social work specialist * medication reviewed as below * symptomatic treatment * await placement * change reglan PO * medically stable * supportive care * if snu declines, then only home with home health option. Review of Systems - Review of Systems Constitutional: weakness. negative: fever, chills, sweats, malaise, other ENT: negative: Ear Pain, Ear Discharge, Nose Pain, Nose Discharge, Nose Congestion, Mouth Pain, Mouth Swelling, Throat Pain, Throat Swelling, Other Respiratory: negative: Cough, Dry, Shortness of Breath, Hemoptysis, SOB with Excertion, Pleuritic Pain, Sputum, Wheezing Cardiovascular: negative: chest pain, palpitations, orthopnea, paroxysmal nocturnal dyspnea, edema, light headedness, other Gastrointestinal: Nausea, Constipation. negative: Vomiting, Abdominal Pain, Diarrhea, Melena, Hematochezia, Other Genitourinary: negative: Dysuria, Frequency, Incontinence, Hematuria, Retention , Other Musculoskeletal: negative: Neck Pain, Shoulder Pain, Arm Pain, Back Pain, Hand Pain, Leg Pain, Foot Pain, Other Skin: negative: Rash, Lesions, Donnell, Bruising, Other - Medications/Allergies Allergies/Adverse Reactions: Allergies Allergy/AdvReac Type Severity Reaction Status Date / Time ibuprofen Allergy Rash Verified 11/08/17 11:44 Medications: Current Medications Acetaminophen (Tylenol) 650 mg PO Q4H PRN PRN Reason: Headache/Fever/Mild Pain (1-3) Last Admin: 02/04/18 09:46 Dose: 650 mg Hydrocodone Bitart/Acetaminophen ([place] 5/325) 1 tab PO Q4H PRN PRN Reason: Moderate Pain (4-6) Hydrocodone Bitart/Acetaminophen ([place] 5/325) 2 tab PO Q4H PRN PRN Reason: Severe Pain (7-10) Last Admin: 02/06/18 15:38 Dose: 2 tab Albuterol/Ipratropium (Duoneb) 3 ml NEB [id number] [facility] Last Admin: 02/08/18 07:44 Dose: 3 ml Albuterol/Ipratropium (Duoneb) 3 ml NEB Q4H PRN PRN Reason: SOB &/or Wheezing Artificial Tears (Tears Naturale) 2 drop EA EYE PRN PRN PRN Reason: Dry Eyes Betamethasone/Clotrimazole (Lotrisone Cream) 0 gm TOP BID [facility] Last Admin: 02/08/18 09:02 Dose: Not Given Bisacodyl (Dulcolax) 10 mg PO DAILYPRN PRN PRN Reason: Constipation Last Admin: 02/05/18 18:01 Dose: 10 mg Bisoprolol Fumarate (Zebeta) 5 mg PO DAILY [facility] Last Admin: 02/08/18 09:01 Dose: 5 mg Cholecalciferol (Vitamin D3) 2,000 units PO DAILY [facility] Last Admin: 02/08/18 09:01 Dose: 2,000 units Clopidogrel Bisulfate (Plavix) 75 mg PO DAILY [facility] Last Admin: 02/08/18 09:01 Dose: 75 mg Dextrose/Water (Dextrose 50%) 25 gm SLOW IVP PRN PRN PRN Reason: Hypoglycemia Furosemide (Lasix) 40 mg SLOW IVP DAILY [facility] Last Admin: 02/08/18 09:10 Dose: 40 mg Glucagon (Glucagon) 1 mg IM PRN PRN PRN Reason: Hypoglycemia Guaifenesin (Robitussin Sf) 200 mg PO Q4H PRN PRN Reason: Cough Hydralazine HCl (Apresoline) 10 mg SLOW IVP Q4H PRN PRN Reason: SBP > 180 and HR < 70 Hydrocortisone/Pramoxine (Analpram Hc) 0 gm TOP QIDPRN PRN PRN Reason: Hemorrhoids Dextrose/Water (D5w) 1,000 mls @ 0 mls/hr IV .Q0M PRN PRN Reason: Hypoglycemia Insulin Human Lispro (Humalog) 0 units SC .MILD SLIDING SCALE PRN PRN Reason: Mild Correctional Scale Last Admin: 02/05/18 17:58 Dose: 3 unit Insulin Human Lispro (Humalog) 0 units SC .BEDTIME SLIDING SC PRN PRN Reason: Bedtime Correctional Scale Loperamide HCl (Imodium) 2 mg PO PRN PRN PRN Reason: Diarrhea/Loose Stools Last Admin: 02/02/18 11:24 Dose: 2 mg Loratadine (Claritin) 10 mg PO DAILYPRN PRN PRN Reason: Sinus Symptoms Losartan Potassium (Cozaar) 50 mg PO DAILY [facility] Last Admin: 02/08/18 09:01 Dose: 50 mg Mineral Oil/White Petrolatum (Eucerin Cream) 0 gm TOP BIDPRN PRN PRN Reason: Dry Skin Montelukast Sodium (Singulair) 10 mg PO [facility] Last Admin: 02/07/18 20:18 Dose: 10 mg Morphine Sulfate (Morphine) 2 mg SLOW IVP Q4H PRN PRN Reason: Moderate Pain (4-6) Last Admin: 02/02/18 11:24 Dose: 2 mg Ondansetron HCl (Zofran Odt) 4 mg PO Q6H PRN PRN Reason: Nausea/Vomiting Last Admin: 01/26/18 04:32 Dose: 4 mg Ondansetron HCl (Zofran) 4 mg IVP Q6H PRN PRN Reason: Nausea/Vomiting Last Admin: 02/05/18 20:33 Dose: 4 mg Pantoprazole Sodium (Protonix) 40 mg PO DAILY [facility] Last Admin: 02/08/18 09:02 Dose: 40 mg Polyethylene Glycol (Miralax) 17 gm PO BID [facility] Last Admin: 02/08/18 09:02 Dose: Not Given Promethazine HCl (Phenergan) 12.5 mg IM/IV Q6H PRN PRN Reason: Nausea/Vomiting Last Admin: 01/29/18 00:31 Dose: 12.5 mg Saccharomyces Boulardii (Florastor) 250 mg PO DAILY [facility] Last Admin: 02/08/18 09:01 Dose: 250 mg Senna/Docusate Sodium (Senokot S) 2 tab PO BID [facility] Last Admin: 02/08/18 09:03 Dose: Not Given Sertraline HCl (Zoloft) 50 mg PO DAILY [facility] Last Admin: 02/08/18 09:01 Dose: 50 mg Simethicone (Mylicon Chewable) 80 mg PO Q6H PRN PRN Reason: Gas Pain Last Admin: 02/03/18 23:54 Dose: 80 mg Simvastatin (Zocor) 40 mg PO HS [facility] Last Admin: 02/07/18 20:18 Dose: 40 mg Sodium Chloride (Flush - Normal Saline) 10 ml IVF Q12HR PRN PRN Reason: Saline Flush Last Admin: 02/07/18 20:25 Dose: 10 ml Sodium Chloride (Flush - Normal Saline) 10 ml IVF PRN PRN PRN Reason: Saline Flush Last Admin: 02/06/18 16:59 Dose: 10 ml Sodium Chloride ([place] Nasal [place] 0.65%) 0 ml EA NARE TID PRN PRN Reason: Nasal Congestion Throat Lozenges (Cepastat Lozenges) 1 nimisha PO Q2H PRN PRN Reason: Sore Throat Zolpidem Tartrate (Ambien) 5 mg PO HSPRN PRN PRN Reason: Insomnia Last Admin: 01/23/18 01:36 Dose: 5 mg
[2018-02-08] MEDS: HYDROcodone/Acetaminophen 5/325 mg Tablet PO PRN ×2 (10:05→13:43)
--- NOTE | 2018-02-08 11:20 | DIS ---
DATE OF ADMISSION: 01/21/2018 DATE OF DISCHARGE: 02/08/2018 PRIMARY CARE PHYSICIAN: Annia Rossi. DISCHARGE DISPOSITION: Long Term Unit. PRIMARY DISCHARGE DIAGNOSES: 1. Left lower lobe community-acquired pneumonia, treated for streptococcal pneumonia, resolved. 2. Pancytopenia due to chemotherapy, resolved. 3. Sepsis due to pneumonia, resolved. 4. Hypotension due to sepsis, resolved. 5. Hyponatremia, resolved. 6. Hypokalemia, resolved. 7. Acute kidney failure, resolved. 8. Generalized weakness. 9. Hypomagnesemia, resolved. SECONDARY DISCHARGE DIAGNOSES: 1. 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 2. Anxiety and depression. 3. Dyslipidemia. 4. Hypertension. PRIMARY PROCEDURE/OPERATION: None. RADIOLOGICAL INVESTIGATION: Chest x-ray showed left lower lobe pneumonia. CT of brain, negative for any acute intracranial process. Abdomen and pelvis CT scan showed ascites and decreased size of tumor. Ultrasound of lower extremity, negative for DVT. SIGNIFICANT LABORATORY DATA: Most recent labs; WBC 7.7, hemoglobin 10.2, platelets 260. Sodium 134, potassium 3.8, BUN 12, creatinine 0.73, calcium 8.3, AST 37, ALT 10, alkaline phosphatase 203, albumin 2.3. Urinalysis is unremarkable. Blood culture is negative. DISCHARGE MEDICATIONS: 1. Albuterol nebulization q.6 hourly p.r.n. 2. Bisoprolol with hydrochlorothiazide 5/6.25 one tablet daily. 3. Vitamin D3 of 2000 units p.o. daily. 4. Clotrimazole-betamethasone topical application b.i.d. 5. Losartan 50 mg p.o. daily. 6. Metformin 500 mg p.o. b.i.d. 7. Singulair 10 mg at bedtime. 8. Zoloft 50 mg daily. 9. Zocor 40 mg p.o. at bedtime. 10. Tylenol No. 3 one or two tablets q.6 hourly p.r.n. 11. Reglan 10 mg t.i.d. p.r.n. 12. Zofran ODT 4 mg q.6 hourly p.r.n. 13. Protonix 40 mg p.o. daily. 14. MiraLAX 17 g p.o. b.i.d. p.r.n. 15. Mylicon 80 mg p.o. q.6 hourly p.r.n. CONTRAINDICATION: None. CODE STATUS: Full code. INPATIENT PUMP OPERATOR BYPRODUCTS: Dr. Hernandez, oncologist, was following while in hospital. TEST RESULTS PENDING ON DISCHARGE: None. ALLERGIES: IBUPROFEN. DISCHARGE PLAN: Posthospital, the patient is planned for discharge to alf home. Subsequently, the patient will follow up with primary care physician and Oncology as instructed. HOSPITAL COURSE: A 77-year-old female, who was admitted by Dr. Calderon on January 22, 2018. 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 She received chemotherapy, and subsequently at home, the patient was having fever, chills, and weakness. She was evaluated in the emergency room and she was found with left lower lobe pneumonia. The patient was admitted to Oncology floor. We treated her with broad-spectrum antibiotic therapy with meropenem and vancomycin. The patient has completed antibiotic therapy while in hospital, subsequently we changed to Augmentin, which she also completed while in the hospital. By the time of discharge, her left lower lobe pneumonia improved. The patient also had pancytopenia from chemotherapy and the patient required filgrastim injection and after that, the patient's white count and platelet count also significantly improved. During this admission, the patient required 2 times platelet transfusion. She did not require any blood transfusion. By the time of discharge, the patient's CBC is more improved. The patient also received IV fluids to support her sepsis and hypotension while in the hospital as well as her p.o. intake secondary to nausea and vomiting and that is why we had to give her more fluid, and because of IV fluids, the patient developed volume overload status that required Lasix therapy. With Lasix, the patient's condition is improved and the patient is now euvolemic. On discharge, we are prescribing Lasix 40 mg p.o. daily. We also did ultrasound of lower extremity to rule out DVT and that was normal. The patient was keep complaining of while in hospital about abdominal pain and ribcage pain and that is why we did CT of abdomen and pelvis, which showed improvement in her cancer from previous. During entire hospital course, the patient was followed by Oncology team and there was no further plan for chemotherapy because the patient's performance status significantly dropped down after first cycle of chemotherapy. The patient was not a good candidate for going home and that is why we have to keep here in the hospital for a period of time. She was declined by rehab and she also declined where couple of [facility] locally. At this point, by the time of dictation, the patient is waiting for another [facility] approval. While in the hospital, the patient was treated symptomatically with gas pain as well as constipation. She was requiring pain medication, and by the time of discharge, the patient is on oral pain medication. She is now ambulatory. She needs intermittent oxygen therapy. The patient is seen and examined at bedside today. Please see my progress note from today for further detail. At this point, most important plan is to get her stronger with PT, OT, and subsequently, she will follow up with Oncology to decide whether she is a candidate for any further chemotherapy or not. If she is not a candidate for chemotherapy in future, then she will need to go for hospice. During this hospital course, we tried to send her to hospice or palliative care, but at this point, she is not ready and she will decide later on. Paperwork for discharge done and discharge medication reconciliation done. Job ID: [id number]
[2018-02-08] MEDS: Simvastatin 40 MG TAB PO SCH (20:43)
[2018-02-08] MEDS: Montelukast Sodium 10 mg Tablet PO SCH (20:43)
[2018-02-09] MEDS: Polyethylene Glycol 3350 17 GM Packet PO SCH (08:25)
[2018-02-09] MEDS: Losartan 25 MG TAB PO SCH (08:26)
[2018-02-09] MEDS: Bisoprolol Fumarate 5 MG TAB PO SCH (08:26)
[2018-02-09] MEDS: Clopidogrel Bisulfate 75 MG TAB PO SCH (08:27)
[2018-02-09] MEDS: Saccharomyces boulardii 250 MG CAP PO SCH (08:27)
[2018-02-09] MEDS: Senokot S 8.6-50 MG TAB PO SCH (08:27)
[2018-02-09 08:59] VITALS: BP 130/63; TEMP 97.8
[2018-02-09] MEDS ORDERED: Furosemide 40 MG TAB PO SCH (09:00)
--- NOTE | 2018-02-09 11:26 | PDOC.PN ---
- Subjective Encounter Start Date: 02/09/18 Encounter Start Time: 07:30 Patient seen and examined. No new complaints. No overnight events - Objective Resuscitation Status - Order Detail: 01/21/18 21:48 Resuscitation Status Routine Resuscitation Status: FULL: Full Resuscitation MAR Reviewed: Yes Vital Signs & Weight: Vital Signs (12 hours) Temp Pulse Resp BP Pulse Ox 02/09/18 08:00 97.8 F 74 20 130/63 93 L 02/09/18 06:33 72 16 95 02/09/18 01:20 75 16 95 Weight Admit Weight 180 lb 1 oz Weight 180 lb 1 oz I&O: 02/08/18 02/09/18 02/10/18 06:59 06:59 06:59 Intake Total 1000 1450 Output Total 700 2 Balance 300 1448 Result Diagrams: 02/05/18 07:54 02/05/18 07:54 Additional Labs: Accuchecks 02/09/18 02/08/18 02/08/18 05:27 20:06 15:40 POC Glucose 121 H 111 H 197 H 02/08/18 11:57 POC Glucose 233 H Phys Exam - Physical Examination Constitutional: NAD HEENT: PERRLA, moist MMs, sclera anicteric Neck: no JVD, supple Respiratory: no wheezing, no rales, no rhonchi Cardiovascular: RRR, no significant murmur, no rub Gastrointestinal: soft, non-tender, no distention, positive bowel sounds Musculoskeletal: pulses present, edema present Neurological: non-focal, normal sensation, moves all 4 limbs Lymphatic: no nodes Psychiatric: normal affect, A&O x 3 Skin: no rash, normal turgor Dx/Plan (1) Acute kidney injury Code(s): N17.9 - ACUTE KIDNEY FAILURE, UNSPECIFIED Status: Resolved (2) Hypokalemia Code(s): E87.6 - HYPOKALEMIA Status: Resolved (3) Hyponatremia Code(s): E87.1 - HYPO-OSMOLALITY AND HYPONATREMIA Status: Resolved (4) Hypotension Status: Resolved (5) Left lower lobe pneumonia Code(s): J18.1 - LOBAR PNEUMONIA, UNSPECIFIED ORGANISM Status: Resolved (6) Pancytopenia due to chemotherapy Code(s): D61.810 - ANTINEOPLASTIC CHEMOTHERAPY INDUCED PANCYTOPENIA Status: Resolved (7) 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 Code(s): C78.7 - SECONDARY MALIG NEOPLASM OF LIVER AND INTRAHEPATIC BILE DUCT; C80.1 - MALIGNANT (PRIMARY) NEOPLASM, UNSPECIFIED Status: Acute Comment: poorly differentiated carcinoma (8) Anxiety and depression Code(s): F41.9 - ANXIETY DISORDER, UNSPECIFIED; F32.9 - MAJOR DEPRESSIVE DISORDER, SINGLE EPISODE, UNSPECIFIED Status: Chronic (9) Dyslipidemia Code(s): E78.5 - HYPERLIPIDEMIA, UNSPECIFIED Status: Chronic (10) Hypertension Code(s): I10 - ESSENTIAL (PRIMARY) HYPERTENSION Status: Chronic (11) Physical deconditioning Code(s): R53.81 - OTHER MALAISE Status: Acute (12) Hypomagnesemia Code(s): E83.42 - HYPOMAGNESEMIA Status: Acute - Plan cont current plan of care, social service liaison * medication reviewed as below * symptomatic treatment * possible discharge to [facility]nu vs home today. Review of Systems - Review of Systems ENT: negative: Ear Pain, Ear Discharge, Nose Pain, Nose Discharge, Nose Congestion, Mouth Pain, Mouth Swelling, Throat Pain, Throat Swelling, Other Respiratory: negative: Cough, Dry, Shortness of Breath, Hemoptysis, SOB with Excertion, Pleuritic Pain, Sputum, Wheezing Cardiovascular: negative: chest pain, palpitations, orthopnea, paroxysmal nocturnal dyspnea, edema, light headedness, other Gastrointestinal: negative: Nausea, Vomiting, Abdominal Pain, Diarrhea, Constipation, Melena, Hematochezia, Other Genitourinary: negative: Dysuria, Frequency, Incontinence, Hematuria, Retention , Other Musculoskeletal: negative: Neck Pain, Shoulder Pain, Arm Pain, Back Pain, Hand Pain, Leg Pain, Foot Pain, Other Skin: negative: Rash, Lesions, Donnell, Bruising, Other - Medications/Allergies Allergies/Adverse Reactions: Allergies Allergy/AdvReac Type Severity Reaction Status Date / Time ibuprofen Allergy Rash Verified 11/08/17 11:44 Medications: Current Medications Acetaminophen (Tylenol) 650 mg PO Q4H PRN PRN Reason: Headache/Fever/Mild Pain (1-3) Last Admin: 02/04/18 09:46 Dose: 650 mg Hydrocodone Bitart/Acetaminophen ([place] 5/325) 1 tab PO Q4H PRN PRN Reason: Moderate Pain (4-6) Last Admin: 02/08/18 13:43 Dose: 1 tab Hydrocodone Bitart/Acetaminophen ([place] 5/325) 2 tab PO Q4H PRN PRN Reason: Severe Pain (7-10) Last Admin: 02/06/18 15:38 Dose: 2 tab Albuterol/Ipratropium (Duoneb) 3 ml NEB [id number] [facility] Last Admin: 02/09/18 06:33 Dose: 3 ml Albuterol/Ipratropium (Duoneb) 3 ml NEB Q4H PRN PRN Reason: SOB &/or Wheezing Artificial Tears (Tears Naturale) 2 drop EA EYE PRN PRN PRN Reason: Dry Eyes Betamethasone/Clotrimazole (Lotrisone Cream) 0 gm TOP BID [facility] Last Admin: 02/09/18 08:31 Dose: 1 applic Bisacodyl (Dulcolax) 10 mg PO DAILYPRN PRN PRN Reason: Constipation Last Admin: 02/05/18 18:01 Dose: 10 mg Bisoprolol Fumarate (Zebeta) 5 mg PO DAILY [facility] Last Admin: 02/09/18 08:26 Dose: 5 mg Cholecalciferol (Vitamin D3) 2,000 units PO DAILY [facility] Last Admin: 02/09/18 08:27 Dose: 2,000 units Clopidogrel Bisulfate (Plavix) 75 mg PO DAILY [facility] Last Admin: 02/09/18 08:27 Dose: 75 mg Dextrose/Water (Dextrose 50%) 25 gm SLOW IVP PRN PRN PRN Reason: Hypoglycemia Furosemide (Lasix) 40 mg PO DAILY [facility] Last Admin: 02/09/18 08:27 Dose: 40 mg Glucagon (Glucagon) 1 mg IM PRN PRN PRN Reason: Hypoglycemia Guaifenesin (Robitussin Sf) 200 mg PO Q4H PRN PRN Reason: Cough Hydralazine HCl (Apresoline) 10 mg SLOW IVP Q4H PRN PRN Reason: SBP > 180 and HR < 70 Hydrocortisone/Pramoxine (Analpram Hc) 0 gm TOP QIDPRN PRN PRN Reason: Hemorrhoids Dextrose/Water (D5w) 1,000 mls @ 0 mls/hr IV .Q0M PRN PRN Reason: Hypoglycemia Insulin Human Lispro (Humalog) 0 units SC .MILD SLIDING SCALE PRN PRN Reason: Mild Correctional Scale Last Admin: 02/05/18 17:58 Dose: 3 unit Insulin Human Lispro (Humalog) 0 units SC .BEDTIME SLIDING SC PRN PRN Reason: Bedtime Correctional Scale Loperamide HCl (Imodium) 2 mg PO PRN PRN PRN Reason: Diarrhea/Loose Stools Last Admin: 02/02/18 11:24 Dose: 2 mg Loratadine (Claritin) 10 mg PO DAILYPRN PRN PRN Reason: Sinus Symptoms Losartan Potassium (Cozaar) 50 mg PO DAILY [facility] Last Admin: 02/09/18 08:26 Dose: 50 mg Mineral Oil/White Petrolatum (Eucerin Cream) 0 gm TOP BIDPRN PRN PRN Reason: Dry Skin Montelukast Sodium (Singulair) [address] [facility] Last Admin: 02/08/18 20:43 Dose: 10 mg Morphine Sulfate (Morphine) 2 mg SLOW IVP Q4H PRN PRN Reason: Moderate Pain (4-6) Last Admin: 02/02/18 11:24 Dose: 2 mg Ondansetron HCl (Zofran Odt) 4 mg PO Q6H PRN PRN Reason: Nausea/Vomiting Last Admin: 01/26/18 04:32 Dose: 4 mg Ondansetron HCl (Zofran) 4 mg IVP Q6H PRN PRN Reason: Nausea/Vomiting Last Admin: 02/05/18 20:33 Dose: 4 mg Pantoprazole Sodium (Protonix) 40 mg PO DAILY [facility] Last Admin: 02/09/18 08:28 Dose: 40 mg Polyethylene Glycol (Miralax) 17 gm PO BID [facility] Last Admin: 02/09/18 08:25 Dose: 17 gm Promethazine HCl (Phenergan) 12.5 mg IM/IV Q6H PRN PRN Reason: Nausea/Vomiting Last Admin: 01/29/18 00:31 Dose: 12.5 mg Saccharomyces Boulardii (Florastor) 250 mg PO DAILY [facility] Last Admin: 02/09/18 08:27 Dose: 250 mg Senna/Docusate Sodium (Senokot S) 2 tab PO BID [facility] Last Admin: 02/09/18 08:27 Dose: 2 tab Sertraline HCl (Zoloft) 50 mg PO DAILY [facility] Last Admin: 02/09/18 08:27 Dose: 50 mg Simethicone (Mylicon Chewable) 80 mg PO Q6H PRN PRN Reason: Gas Pain Last Admin: 02/03/18 23:54 Dose: 80 mg Simvastatin (Zocor) 40 mg PO HS [facility] Last Admin: 02/08/18 20:43 Dose: 40 mg Sodium Chloride (Flush - Normal Saline) 10 ml IVF Q12HR PRN PRN Reason: Saline Flush Last Admin: 02/07/18 20:25 Dose: 10 ml Sodium Chloride (Flush - Normal Saline) 10 ml IVF PRN PRN PRN Reason: Saline Flush Last Admin: 02/06/18 16:59 Dose: 10 ml Sodium Chloride ([place] Nasal [place] 0.65%) 0 ml EA NARE TID PRN PRN Reason: Nasal Congestion Throat Lozenges (Cepastat Lozenges) 1 nimisha PO Q2H PRN PRN Reason: Sore Throat Zolpidem Tartrate (Ambien) 5 mg PO HSPRN PRN PRN Reason: Insomnia Last Admin: 01/23/18 01:36 Dose: 5 mg
--- NOTE | 2018-02-10 12:48 | DIS ---
DATE OF ADMISSION: 01/21/2018 DATE OF DISCHARGE: 02/09/2018 ADDENDUM: Please see my discharge summary dictated on February 08, 2018. This patient stayed in the hospital for several days because of her insurance authorization to go to longterm home. Finally yesterday, the patient had approval for longterm home in [place]. The patient was seen and examined on the day of discharge. Please see my progress note from that day. There is no change in her discharge medication. Job ID: [id number]
== END 2018-02-09 14:13 | DRG 871 ==
LOC: ERS 17:21 → ONC 20:10 → 3SE 01-22 17:19 → ONC 01-23 08:14
PROVIDERS: ADMIT Internal Medicine; ATTEND Internal Medicine
PROC: 30233R1 Transfusion of Nonautologous Platelets into Peripheral Vein, Percutaneous Approach (ICD-10-PCS; principal; 2018-01-22)
PROC: 30233R1 Transfusion of Nonautologous Platelets into Peripheral Vein, Percutaneous Approach (ICD-10-PCS; 2018-01-24)
DX: A41.9 Sepsis, unspecified organism (principal); J15.4 Pneumonia due to other streptococci; D61.810 Antineoplastic chemotherapy induced pancytopenia; C25.9 Malignant neoplasm of pancreas, unspecified; C78.7 Secondary malignant neoplasm of liver and intrahepatic bile duct; N17.9 Acute kidney failure, unspecified; E87.1 Hypo-osmolality and hyponatremia; R18.8 Other ascites; K59.00 Constipation, unspecified; E87.6 Hypokalemia; F41.8 Other specified anxiety disorders; I10 Essential (primary) hypertension; E11.9 Type 2 diabetes mellitus without complications; E83.42 Hypomagnesemia; E86.0 Dehydration; E78.5 Hyperlipidemia, unspecified; Z87.891 Personal history of nicotine dependence; Z79.84 Long term (current) use of oral hypoglycemic drugs; Z88.6 Allergy status to analgesic agent
CPT/HCPCS: 36415; 36416; 36430; 70450; 71046; 74018; 74177; 80048; 80053; 80202; 81001; 83605; 83735; 83880; 84100; 85025; 86850; 86900; 86901; 93970; 94640; 96365; 96367; 96375; G8978-GP-CL; G8979-GP-CJ; G8987-GO-CK; G8987-GO-CL; G8988-GO-CJ; J1200; J1447; J1642; J1650; J1940; J2185; J2270; J2405; J2543; J2550; J2765; J3370; J3475; J3480; J7050; J7620; P9035; Q0162

== ENCOUNTER 2018-03-30 12:45 | Outpatient (CLI) | payer MEDICARE ==
--- NOTE | 2018-03-30 14:51 | RAD ---
CHEST 2 VIEWS: HISTORY: Cough. Disseminated malignant neoplasm. Shortness of breath. COMPARISON: Radiograph of 01/24/2018. FINDINGS: Extensive interstitial markings present throughout the lungs suggesting pulmonary edema. Small effus ions. Lungs are hypoinflated. Port catheter tip inferior SVC in good position. IMPRESSION: 1. Findings suggesting mild pulmonary venous congestion and early edema. 2. Patchy opacity in the left lung base and lingula is similar. This may be reflective of chronic s carring or atelectasis. POS: [facility]
== END 2018-03-30 12:46 | disposition home or self-care (01) ==
LOC: BICRAD 12:45
PROVIDERS: ATTEND Internal Medicine Hematology & Oncology
DX: R06.02 Shortness of breath (principal); R05 Cough; R06.01 Orthopnea; C80.0 Disseminated malignant neoplasm, unspecified; C25.8 Malignant neoplasm of overlapping sites of pancreas; R91.8 Other nonspecific abnormal finding of lung field
CPT/HCPCS: 71046; 80053; 82248; 83615; 84100; 84550

== ENCOUNTER 2018-04-03 13:28 | Outpatient (CLI) | payer MEDICARE | END 2018-04-03 13:29 | disposition home or self-care (01) | LOC: ULT 13:28 | PROVIDERS: ATTEND Internal Medicine Hematology & Oncology | DX: R06.01 Orthopnea (principal); R01.1 Cardiac murmur, unspecified; R60.0 Localized edema; I08.3 Combined rheumatic disorders of mitral, aortic and tricuspid valves | CPT/HCPCS: 36415; 80053; 82248; 83615; 84100; 84550; 93306 ==

== ENCOUNTER 2018-05-23 11:45 | Outpatient (CLI) | payer MEDICARE ==
--- NOTE | 2018-05-23 16:00 | CT ---
FExam: Chest CT with contrast Abdomen CT with contrast Pelvic CT with contrast HISTORY: Metastatic pancreas/cholangiocarcinoma Correlation: Pet imaging 12/29/2017 COMPARISON: 01/31/2018, 11/17/2017 FINDINGS: Chest CT: Mediastinum: Nonspecific, nonenlarged lymph nodes. No hematoma or mass. Aorta: Normal caliber. Minimal atherosclerotic disease Heart: Upper normal size. Calcification of the aortic valve and mitral valve. Coronary calcifications Trachea and central bronchi: Trachea and central bronchi are patent. Pleural spaces: No significant pleural fluid Right lung: Dependent atelectatic changes with patchy groundglass opacities. Well-circumscribed 5 mm nodule in the right lower lobe. No suspicious masses or consolidation. Left lung:Dependent atelectatic changes with patchy groundglass opacities. No suspicious masses or co nsolidation. Pneumothorax: None Abdomen CT: Gallbladder: Grossly unremarkable Portal vein: Centrally patent Liver: Redemonstration of multifocal hepatic masses. When compared to the previous examination, the o verall degree and distribution has slightly decreased. Right hepatic lobe lesion measuring 1.1 x 1.6 cm (previously measuring 1.9 x 3.6 cm). Confluent masses in the hepatic parenchyma near the ankur hep atis currently measures 5.8 x 3.8 cm (previously measuring 8.1 x 4.1 cm). Spleen: Appropriate enhancement Pancreas: Appropriate enhancement Adrenal glands: Appropriate enhancement Lymphadenopathy: No gastrohepatic or retrocrural lymphadenopathy. Limited evaluation the periportal r egion. No obvious lymph nodes. Kidneys: Symmetric enhancement. No obstructive uropathy Mesentery: There is perihepatic fluid. Fluid is noted along the gastrohepatic ligament and in the per isplenic region. Fluid tracks along both paracolic gutters. Additional free fluid in the lower abdomi nal mesentery is noted. No free air or significant lymphadenopathy. Alimentary canal: No evidence of bowel obstruction. Pelvis CT: Free fluid in the pelvis. No mass, lymphadenopathy or free air. Unremarkable urinary bladder. Surgica lly absent uterus. Osseous structures:No lytic or blastic lesions IMPRESSION: 1. .Redemonstration of multifocal hepatic malignancy. There is partial response to therapy. 2. Free fluid in the abdomen and pelvis.
== END 2018-05-23 11:46 | disposition home or self-care (01) ==
LOC: SCSCT 11:45
PROVIDERS: ATTEND Internal Medicine Hematology & Oncology
DX: C80.0 Disseminated malignant neoplasm, unspecified (principal); C25.8 Malignant neoplasm of overlapping sites of pancreas
CPT/HCPCS: 71260; 74177

== ENCOUNTER 2018-08-07 09:20 | Outpatient (CLI) | payer MEDICARE ==
--- NOTE | 2018-08-07 12:28 | CT ---
CT CHEST AND ABDOMEN AND PELVIS WITH IV CONTRAST: Multiple axial tomograms were obtained through the chest, abdomen, and pelvis with IV enhancement. 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 Metastatic adenocarcinoma. Ass ess for response to treatment. COMPARISON: CT chest, abdomen, and pelvis 05/23/2018. FINDINGS: CT CHEST: The lungs show interstitial thickening and mild vascular congestion. No effusion. No focal infiltra te or nodular density. Mediastinum unremarkable. Thoracic aorta and pulmonary arteries show normal enhancement. No axillar y adenopathy. Nonspecific mediastinal lymph nodes are stable in appearance. IMPRESSION: There are chronic chest findings which appear stable from prior exam. CT ABDOMEN AND PELVIS: Evaluation of the liver reveals numerous areas of low attenuation consistent with metastatic disease. A focal lesion under the diaphragm measures 1.1 cm today seen on axial image 35. This has increase d in size from prior exam at which time it measured 0.6 cm. Low-density lesion seen along the anterior margin of the mid liver measures 2.0 x 1.4 cm today. This was previously measured at 1.6 x 1.0 cm. Abnormal low attenuation in the left lobe of the liver extending into the ankur hepatis measures appr oximately 5.7 x 3.5 cm and is stable from prior exam. There are other low attenuation lesions in the left lobe of the liver which also appear unchanged. Fluid around the liver margin appears unchanged. Spleen unremarkable. Pancreas unremarkable. No biliary duct dilatation. Small bowel loops appear normal. Colon unremarkable. Aorta shows atherosclerotic calcification, but normal caliber. Nonspecific periaortic lymph nodes ar e again noted. There is a lymph node left of the aorta inferior to the renal veins measuring 1.4 cm AP dimension. There is a stable node. There are other small subcentimeter periaortic lymph nodes wh ich are stable. Images through the pelvis show free fluid in the pelvis which has a similar appearance to the prior e xam. Osseous structures unremarkable. IMPRESSION: Slight increase in size of at least 2 of the liver lesions. The diffuse involvement of the left lobe of the liver appears stable. Findings otherwise appear stable from the recent exam. POS: [facility]
== END 2018-08-07 09:21 | disposition home or self-care (01) ==
LOC: BICCT 09:20
PROVIDERS: ATTEND Internal Medicine Hematology & Oncology
DX: C80.0 Disseminated malignant neoplasm, unspecified (principal); C25.8 Malignant neoplasm of overlapping sites of pancreas; K76.9 Liver disease, unspecified
CPT/HCPCS: 71260; 74177

== ENCOUNTER 2018-09-08 18:21 | Inpatient (IN) | payer MEDICARE ==
--- NOTE | 2018-09-08 19:24 | RAD ---
Frontal radiograph pelvis: 09/08/2018 COMPARISON: None HISTORY: Two-month history of abdominal pain FINDINGS: The abdomen is not imaged on this exam. No widening of the sacroiliac joints or the pubic s ymphysis. The pelvic ring appears intact. The femoral heads project normally over the respective acetabulum. No displaced fracture seen. IMPRESSION: No displaced pelvic fracture.
[2018-09-08 19:25] LABS: Hemoglobin 9.9 g/dL (12.0-16.0); Mean Corpuscular HGB CONC 31.3 g/dL (32.0-36.0); Mean Corpuscular Hemoglobin 33.5 pg (27.0-31.0); Mean Platelet Volume 8.2 fL (7.4-10.4); Platelet Count 210 thou/uL (130-400); RBC Distribution Width 15.6 % (11.5-14.5); Red Blood Cell (RBC) Count 2.95 mill/uL (4.20-5.40); White Blood Cell (WBC) Count 14.8 thou/uL (4.8-10.8)
--- NOTE | 2018-09-08 19:40 | CT ---
Head CT without contrast 09/08/2018: COMPARISON: 01/25/2018 HISTORY: Weakness TECHNIQUE: Axial CT imaging at 5 mm intervals from vertex through skull base without contrast FINDINGS: The visualized paranasal sinuses and mastoid air cells are well aerated. No displaced patrick rial fracture. No intracranial hemorrhage, midline shift, mass effect, or ventricular enlargement. IMPRESSION: No acute findings.
[2018-09-08 19:43] LABS: ALT (SGPT) Less than 7 U/L (8-55); AST (SGOT) 29 U/L (5-34); Albumin 2.7 g/dL (3.4-4.8); Alkaline Phosphatase 219 U/L (40-150); Anion Gap 15 mmol/L (10-20); BUN (Urea Nitrogen) 24 mg/dL (9.8-20.1); Bilirubin, Total 1.1 mg/dL (0.2-1.2); Calc. Creatinine Clearance 0 mL/min (70-130); Calcium 8.2 mg/dL (7.8-10.44); Carbon Dioxide 22 mmol/L (23-31); Chloride 100 mmol/L (98-107); Estimated GFR-MDRD 44; Globulin 3.4 g/dL (2.4-3.5); Glucose 155 mg/dL (83-110); Protein, Total 6.1 g/dL (6.0-8.3); Sodium 134 mmol/L (136-145)
[2018-09-08 19:46] LABS: Potassium 2.6 mmol/L (3.5-5.1)
[2018-09-08 19:54] LABS: #Lymphocytes 1.5 thou/uL (1.20-3.40); #Neutrophils 12.2 thou/uL (1.40-6.50); %Basophils 0.1 % (0.0-1.0); %Eosinophils 0.2 % (0.0-10.0); %Lymphocytes 10.4 % (21.0-51.0); %Neutrophils 82.3 % (42.0-75.0); Anisocytosis SLIGHT = 6-15 cells (100X) (0-5/hpf); MDiff Complete? YES; Macrocytosis SLIGHT = 6-15 cells (100X) (0-5/hpf)
[2018-09-08 20:05] LABS: CKMB 0.5 ng/mL (0-6.6)
[2018-09-08 20:15] LABS: Bacteria/HPF 4+ HPF (None Seen); Bilirubin Negative (Negative); Blood, Urine Negative (Negative); Clarity Turbid (Clear); Glucose, Urine (Dipstick) Normal (Negative); Leukocyte 500 Leu/uL (Negative); Nitrite Negative (Negative); Protein, Urine (Dipstick) 50 mg/dL (Neg-Trace); RBC/HPF 0-3 HPF (0-3); Squamous Epithelial 0-3 HPF (0-3); Urobilinogen Normal mg/dL (Less than 2); WBC/HPF Greater than 50 HPF (0-3)
[2018-09-08] MEDS ORDERED: Potassium Chloride 20 MEQ TAB ONE (20:40)
[2018-09-08] MEDS ORDERED: cefTRIAXone\\ROCEPHIN 1 GM VIAL ONE (20:42)
[2018-09-08] MEDS ORDERED: Potassium Chloride 20 MEQ in Premix Bag 1 BAG IVPB SCH (20:45)
[2018-09-08] MEDS ORDERED: Aspirin Chewable 81 MG TAB ONE (21:01)
--- NOTE | 2018-09-08 21:19 | RAD ---
Portable frontal chest radiograph: 09/08/2018 COMPARISON: 03/30/2018 HISTORY: Generalized weakness and dizziness FINDINGS: Stable increased linear interstitial density noted in the perihilar regions and left lung b ase. CT injectable left-sided Port-A-Cath in stable position. No focal consolidation or alveolar edema. IMPRESSION: Stable appearance of the chest as detailed above. Persistent stable nonspecific linear in terstitial density.
[2018-09-08] MEDS ORDERED: Potassium Chloride 20 MEQ/100 ML PREMIX BAG ONE (22:13)
[2018-09-08 22:38] LABS: Troponin I 0.046 ng/mL (< 0.028)
[2018-09-08] MEDS ORDERED: Ondansetron ODT 4 MG TAB PO PRN (22:45)
[2018-09-08] MEDS ORDERED: Ondansetron PF 4 MG/2 ML Vial IVP PRN (22:45)
[2018-09-08] MEDS ORDERED: Acetaminophen 650 MG Suppository PR PRN (22:45)
[2018-09-08 23:59] VITALS: BMI 23.5
[2018-09-09 01:55] LABS: Troponin I 0.042 ng/mL (< 0.028)
[2018-09-09 05:15] LABS: #Eosinphils 0.1 thou/uL (0.0-0.7); #Lymphocytes 1.3 thou/uL (1.20-3.40); #Monocytes 0.8 thou/uL (0.11-0.59); #Neutrophils 7.1 thou/uL (1.40-6.50); %Basophils 0.3 % (0.0-1.0); %Eosinophils 1.2 % (0.0-10.0); %Lymphocytes 13.9 % (21.0-51.0); %Monocytes 8.4 % (0.0-10.0); %Neutrophils 76.3 % (42.0-75.0); Hemoglobin 8.4 g/dL (12.0-16.0); Mean Corpuscular HGB CONC 32.1 g/dL (32.0-36.0); Mean Platelet Volume 8.5 fL (7.4-10.4); Platelet Count 168 thou/uL (130-400); RBC Distribution Width 15.7 % (11.5-14.5); Red Blood Cell (RBC) Count 2.47 mill/uL (4.20-5.40); White Blood Cell (WBC) Count 9.3 thou/uL (4.8-10.8)
[2018-09-09 05:32] LABS: Anion Gap 8 mmol/L (10-20); BUN (Urea Nitrogen) 23 mg/dL (9.8-20.1); Calc. Creatinine Clearance 50 mL/min (70-130); Calcium 7.6 mg/dL (7.8-10.44); Carbon Dioxide 26 mmol/L (23-31); Chloride 104 mmol/L (98-107); Estimated GFR-MDRD 56; Glucose 141 mg/dL (83-110); Sodium 135 mmol/L (136-145)
[2018-09-09] MEDS ORDERED: Dextrose 50% Abboject 50 ML SYRINGE SLOW IVP PRN (06:13)
[2018-09-09] MEDS ORDERED: Dextrose 5% in Water 1,000 ML IV PRN (06:13)
[2018-09-09] MEDS ORDERED: HumaLOG 300 UNITS/3 ML VIAL SC PRN (06:13)
[2018-09-09] MEDS ORDERED: Simethicone Chewable 80 MG TAB PO PRN (06:13)
[2018-09-09] MEDS ORDERED: Prochlorperazine Maleate 5 MG TAB PO PRN (06:13)
[2018-09-09] MEDS ORDERED: Albuterol Sulfate 2.5 mg/3 ml Neb NEB PRN (06:13)
[2018-09-09] MEDS ORDERED: Ondansetron ODT 4 MG TAB PO PRN (06:13)
[2018-09-09] MEDS ORDERED: hydrALAZINE 20 MG/ML VIAL SLOW IVP PRN (07:39)
[2018-09-09] MEDS ORDERED: Bisacodyl 10 MG SUPP PR PRN (07:39)
[2018-09-09] MEDS ORDERED: Artificial Tears 18 DROP/0.9 ML EA EYE PRN (07:39)
[2018-09-09] MEDS ORDERED: Cepastat Lozenges 1 LOZ PO PRN (07:39)
[2018-09-09] MEDS ORDERED: Sodium Chloride 0.65% Nasal 44 ML BOT EA NARE PRN (07:39)
[2018-09-09] MEDS ORDERED: Senokot S 8.6-50 MG TAB PO PRN (07:39)
[2018-09-09] MEDS ORDERED: Loperamide HCl 2 MG CAP PO PRN (07:39)
[2018-09-09] MEDS ORDERED: Zolpidem Tartrate 5 MG TAB PO PRN (07:39)
[2018-09-09] MEDS ORDERED: Loratadine 10 MG TAB PO PRN (07:39)
[2018-09-09] MEDS ORDERED: Diabetic Tussin 200 MG/10 ML UDCUP PO PRN (07:39)
[2018-09-09] MEDS ORDERED: HYDROcodone/Acetaminophen 5/325 mg Tablet PO PRN (07:39)
--- NOTE | 2018-09-09 08:13 | ULT ---
LEFT LOWER EXTREMITY VENOUS DOPPLER ULTRASOUND: DATE: 09/09/2018. COMPARISON: None. HISTORY: Pain, assess for DVT. TECHNIQUE: Multiplanar, guzmán scale sonographic imaging of venous structures left lower extremity obtained with c olor flow and spectral analysis. FINDINGS: Left common femoral vein, femoral vein, popliteal vein, greater saphenous vein, profunda femoral vein , posterior tibial vein, and anterior tibial vein are patent. There is normal blood flow, augmentati on, and compression within the deep venous system. IMPRESSION: No evidence for LLE DVT. POS: [facility]
[2018-09-09 08:19] LABS: Magnesium 1.5 mg/dL (1.6-2.6); Phosphorus 2.2 mg/dL (2.3-4.7)
[2018-09-09] MEDS: Potassium Chloride 20 MEQ TAB PO SCH (09:01)
[2018-09-09] MEDS: Lorazepam 1 MG TAB PO SCH ×2 (09:01→21:00)
[2018-09-09] MEDS: metFORMIN 500 MG TAB PO SCH ×2 (09:01→18:15)
[2018-09-09] MEDS: Cyanocobalamin (Vitamin B-12) 1,000 MCG TAB PO SCH (09:01)
[2018-09-09] MEDS: Folic Acid 1 MG TAB PO SCH (09:02)
[2018-09-09] MEDS: Bisoprolol Fumarate/HCTZ 10 mg/6.25 mg Tablet PO SCH (09:02)
[2018-09-09] MEDS: Enoxaparin Sodium 40 MG/0.4 ML SYRINGE SC SCH (09:02)
[2018-09-09] MEDS: cefTRIAXone\\ROCEPHIN 1 GM in Sodium Chloride 0.9% 100 ML IVPB SCH (09:11)
[2018-09-09] MEDS ORDERED: Magnesium Sulfate 3 GM in Sodium Chloride 0.9% 100 ML IVPB SCH (10:30)
[2018-09-09] MEDS ORDERED: Potassium Phosphate 15 MMOL in Sodium Chloride 0.9% 250 ML 250 ML IVPB SCH (10:30)
--- NOTE | 2018-09-09 10:51 | PDOC.PN ---
- Subjective Encounter Start Date: 09/09/18 Encounter Start Time: 07:00 Patient seen and examined. pt has nausea, has poor apatite, feels weak, no fever. No overnight events - Objective Resuscitation Status - Order Detail: 09/08/18 22:45 Resuscitation Status Routine Resuscitation Status: DNAR: NO Resuscitation Discussed with: as stated by patient, and daughter at bedside MAR Reviewed: Yes Vital Signs & Weight: Vital Signs (12 hours) Temp Pulse Resp BP BP Pulse Ox 09/09/18 07:55 97.6 F 69 20 128/60 97 09/09/18 04:41 97.7 F 64 12 131/67 97 09/08/18 23:30 99 09/08/18 23:15 98.7 F 62 22 H 132/56 L 99 Weight Weight 145 lb 8 oz Result Diagrams: 09/09/18 04:55 09/09/18 04:55 Phys Exam - Physical Examination Constitutional: NAD HEENT: PERRLA, moist MMs, sclera anicteric Neck: no JVD, supple Respiratory: no wheezing, no rales, no rhonchi mediport+ Cardiovascular: RRR, no significant murmur, no rub Gastrointestinal: soft, non-tender, no distention, positive bowel sounds Musculoskeletal: no edema, pulses present Neurological: non-focal, normal sensation, moves all 4 limbs Lymphatic: no nodes Psychiatric: normal affect, A&O x 3 Skin: no rash, normal turgor Dx/Plan (1) ANDRA (acute kidney injury) Code(s): N17.9 - ACUTE KIDNEY FAILURE, UNSPECIFIED Status: Acute (2) Demand ischemia Code(s): I24.8 - OTHER FORMS OF ACUTE ISCHEMIC HEART DISEASE Status: Acute (3) Hypokalemia Code(s): E87.6 - HYPOKALEMIA Status: Acute (4) Hypomagnesemia Code(s): E83.42 - HYPOMAGNESEMIA Status: Acute (5) Hypophosphatemia Code(s): E83.39 - OTHER DISORDERS OF PHOSPHORUS METABOLISM Status: Acute (6) UTI (urinary tract infection) Status: Acute (7) Anxiety and depression Code(s): F41.9 - ANXIETY DISORDER, UNSPECIFIED; F32.9 - MAJOR DEPRESSIVE DISORDER, SINGLE EPISODE, UNSPECIFIED Status: Chronic (8) Diabetes type 2, controlled Code(s): E11.9 - TYPE 2 DIABETES MELLITUS WITHOUT COMPLICATIONS Status: Chronic (9) Dyslipidemia Code(s): E78.5 - HYPERLIPIDEMIA, UNSPECIFIED Status: Chronic (10) GERD (gastroesophageal reflux disease) Code(s): K21.9 - GASTRO-ESOPHAGEAL REFLUX DISEASE WITHOUT ESOPHAGITIS Status: Chronic (11) Hypertension Code(s): I10 - ESSENTIAL (PRIMARY) HYPERTENSION Status: Chronic (12) Macrocytic anemia Code(s): D53.9 - NUTRITIONAL ANEMIA, UNSPECIFIED Status: Chronic (13) 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 * will repeat labs tomorrow * start PT Review of Systems - Review of Systems Constitutional: weakness. negative: fever, chills, sweats, malaise, other Respiratory: negative: Cough, Dry, Shortness of Breath, Hemoptysis, SOB with Excertion, Pleuritic Pain, Sputum, Wheezing Cardiovascular: negative: chest pain, palpitations, orthopnea, paroxysmal nocturnal dyspnea, edema, light headedness, other Gastrointestinal: Nausea. negative: Vomiting, Abdominal Pain, Diarrhea, Constipation, Melena, Hematochezia, Other Genitourinary: negative: Dysuria, Frequency, Incontinence, Hematuria, Retention , Other Musculoskeletal: negative: Neck Pain, Shoulder Pain, Arm Pain, Back Pain, Hand Pain, Leg Pain, Foot Pain, Other Skin: negative: Rash, Lesions, Donnell, Bruising, Other - Medications/Allergies Allergies/Adverse Reactions: Allergies Allergy/AdvReac Type Severity Reaction Status Date / Time ibuprofen Allergy Rash Verified 09/09/18 00:02 Medications: Current Medications Acetaminophen (Tylenol) 650 mg PO Q4H PRN PRN Reason: Headache/Fever/Mild Pain (1-3) Acetaminophen (Tylenol) 650 mg HI Q4H PRN PRN Reason: Headache/Fever/Mild Pain (1-3) Hydrocodone Bitart/Acetaminophen ([place] 5/325) 1 tab PO Q4H PRN PRN Reason: Moderate Pain (4-6) Albuterol Sulfate (Ventolin) 2.5 mg NEB Q6H PRN PRN Reason: Wheezing Artificial Tears (Tears Naturale) 2 drop EA EYE PRN PRN PRN Reason: Dry Eyes Atorvastatin Calcium (Lipitor) 20 mg PO HS [facility] Bisacodyl (Dulcolax) 10 mg HI DAILYPRN PRN PRN Reason: Constipation Bisoprolol Fumarate/HCTZ ([place] 10-6.25) 1 tab PO DAILY [facility] Last Admin: 09/09/18 09:02 Dose: 1 tab Cyanocobalamin (Vitamin B-12) 1,000 mcg PO DAILY [facility] Last Admin: 09/09/18 09:01 Dose: 1,000 mcg Dextrose/Water (Dextrose 50%) 25 gm SLOW IVP PRN PRN PRN Reason: Hypoglycemia Enoxaparin Sodium (Lovenox) 40 mg SC 0900 [facility] Last Admin: 09/09/18 09:02 Dose: 40 mg Folic Acid (Folvite) 1 mg PO DAILY [facility] Last Admin: 09/09/18 09:02 Dose: 1 mg Glucagon (Glucagon) 1 mg IM PRN PRN PRN Reason: Hypoglycemia Guaifenesin (Robitussin Sf) 200 mg PO Q4H PRN PRN Reason: Cough Hydralazine HCl (Apresoline) 10 mg SLOW IVP Q4H PRN PRN Reason: SBP > 180 and HR < 70 Ceftriaxone Sodium 1 gm/ (Sodium Chloride) 100 mls @ 200 mls/hr IVPB Q24HR [facility] Last Admin: 09/09/18 09:11 Dose: 100 mls Dextrose/Water (D5w) 1,000 mls @ 0 mls/hr IV .Q0M PRN PRN Reason: Hypoglycemia Potassium Chloride/Sodium Chloride (1/2 Ns W/Kcl 20 Meq) 1,000 mls @ 100 mls/ hr IV .Q10H [facility] Magnesium Sulfate 3 gm/ Sodium (Chloride) 106 mls @ 100 mls/hr IVPB NOW [facility] Stop: 09/09/18 13:00 Potassium Phosphate 15 mmol/ (Sodium Chloride) 255 mls @ 62.5 mls/hr IVPB NOW [facility] Stop: 09/09/18 14:00 Insulin Human Lispro (Humalog) 0 units SC .MILD SLIDING SCALE PRN PRN Reason: Mild Correctional Scale Loperamide HCl (Imodium) 2 mg PO PRN PRN PRN Reason: Diarrhea/Loose Stools Loratadine (Claritin) 10 mg PO DAILYPRN PRN PRN Reason: Sinus Symptoms Lorazepam (Ativan) 1 mg PO BID [facility] Last Admin: 09/09/18 09:01 Dose: 1 mg Metformin HCl (Glucophage) 500 mg PO BID[facility] Last Admin: 09/09/18 09:01 Dose: 500 mg Mirtazapine (Remeron) 15 mg PO [facility] Ondansetron HCl (Zofran) 4 mg IVP Q6H PRN PRN Reason: Nausea/Vomiting Ondansetron HCl (Zofran Odt) 4 mg PO Q6H PRN PRN Reason: Nausea/Vomiting Pantoprazole Sodium (Protonix) 40 mg PO DAILY [facility] Last Admin: 09/09/18 09:01 Dose: 40 mg Potassium Chloride (K-Dur) 20 meq PO [facility] Last Admin: 09/09/18 09:01 Dose: 20 meq Prochlorperazine Maleate (Compazine) 10 mg PO Q6HR PRN PRN Reason: Nausea Senna/Docusate Sodium (Senokot S) 2 tab PO BID PRN PRN Reason: Constipation Simethicone (Mylicon Chewable) 80 mg PO Q6H PRN PRN Reason: Gas Pain Sodium Chloride ([place] Nasal [place] 0.65%) 0 ml EA NARE QIDPRN PRN PRN Reason: Nasal Congestion Throat Lozenges (Cepastat Lozenges) 1 nimisha PO Q2H PRN PRN Reason: Sore Throat Zolpidem Tartrate (Ambien) 5 mg PO HSPRN PRN PRN Reason: Insomnia
[2018-09-09] MEDS: 1/2 NS w/KCL 20 mEq 1,000 ML IV SCH ×2 (12:58→20:30)
--- NOTE | 2018-09-09 16:54 | EKG ---
Test Reason : Blood Pressure : / mmHG Vent. Rate : 074 BPM Atrial Rate : 074 BPM P-R Int : 134 ms QRS Dur : 074 ms QT Int : 362 ms P-R-T Axes : 065 001 011 degrees QTc Int : 401 ms Sinus rhythm with Premature atrial complexes Cannot rule out Inferior infarct , age undetermined Abnormal ECG Confirmed by PERLITA REGALADO D.O. ([id number]), editor continuity and script DANY PERALES ([id number]) on 09/09/2018 4:53:37 PM Referred By: Confirmed By:PERLITA REGALADO D.O.
[2018-09-09] MEDS: Acetaminophen 325 MG TAB PO PRN (18:18)
[2018-09-09] MEDS: Atorvastatin Calcium 20 MG TAB PO SCH (21:00)
[2018-09-09] MEDS: Mirtazapine 15 MG TAB PO SCH (21:00)
[2018-09-10 05:33] LABS: Magnesium 2.2 mg/dL (1.6-2.6); Phosphorus 2.8 mg/dL (2.3-4.7)
[2018-09-10] MEDS: Enoxaparin Sodium 40 MG/0.4 ML SYRINGE SC SCH (08:26)
[2018-09-10] MEDS: cefTRIAXone\\ROCEPHIN 1 GM in Sodium Chloride 0.9% 100 ML IVPB SCH (08:27)
[2018-09-10] MEDS: metFORMIN 500 MG TAB PO SCH ×2 (08:28→17:41)
[2018-09-10] MEDS: Cyanocobalamin (Vitamin B-12) 1,000 MCG TAB PO SCH (08:28)
[2018-09-10] MEDS: Bisoprolol Fumarate/HCTZ 10 mg/6.25 mg Tablet PO SCH (08:28)
[2018-09-10] MEDS: Potassium Chloride 20 MEQ TAB PO SCH (08:28)
[2018-09-10] MEDS: Folic Acid 1 MG TAB PO SCH (08:28)
[2018-09-10] MEDS: Lorazepam 1 MG TAB PO SCH ×2 (08:29→20:09)
[2018-09-10] MEDS: Acetaminophen 325 MG TAB PO PRN (09:41)
--- NOTE | 2018-09-10 11:45 | PDOC.PN ---
- Subjective Encounter Start Date: 09/10/18 Encounter Start Time: 07:00 Patient seen and examined. No new complaints. No overnight events - Objective Resuscitation Status - Order Detail: 09/08/18 22:45 Resuscitation Status Routine Resuscitation Status: DNAR: NO Resuscitation Discussed with: as stated by patient, and daughter at bedside MAR Reviewed: Yes Vital Signs & Weight: Vital Signs (12 hours) Temp Pulse Pulse Resp BP BP Pulse Ox 09/10/18 09:18 71 126/58 L 09/10/18 08:15 98.2 F 68 16 126/58 L 96 09/10/18 03:48 96.8 F L 69 12 116/58 L 99 09/09/18 23:59 97.0 F L 62 16 95/54 L 98 Pulse Ox 09/10/18 09:18 96 09/10/18 08:15 09/10/18 03:48 09/09/18 23:59 Weight Admit Weight 145 lb 8 oz Weight 145 lb 8 oz I&O: 09/09/18 09/10/18 09/11/18 06:59 06:59 06:59 Intake Total 1590 Balance 1590 Result Diagrams: 09/09/18 04:55 09/09/18 04:55 Additional Labs: Accuchecks 09/10/18 09/10/18 09/09/18 11:09 05:37 20:34 POC Glucose 120 H 99 136 H 09/09/18 09/09/18 16:38 11:21 POC Glucose 111 H 162 H Phys Exam - Physical Examination Constitutional: NAD HEENT: PERRLA, moist MMs, sclera anicteric Neck: no JVD, supple Respiratory: no wheezing, no rales, no rhonchi Cardiovascular: RRR, no significant murmur, no rub Gastrointestinal: soft, non-tender, no distention, positive bowel sounds Musculoskeletal: no edema, pulses present Neurological: non-focal, normal sensation, moves all 4 limbs Lymphatic: no nodes Psychiatric: normal affect, A&O x 3 Skin: no rash, normal turgor Dx/Plan (1) ANDRA (acute kidney injury) Code(s): N17.9 - ACUTE KIDNEY FAILURE, UNSPECIFIED Status: Resolved (2) Demand ischemia Code(s): I24.8 - OTHER FORMS OF ACUTE ISCHEMIC HEART DISEASE Status: Acute (3) Hypokalemia Code(s): E87.6 - HYPOKALEMIA Status: Resolved (4) Hypomagnesemia Code(s): E83.42 - HYPOMAGNESEMIA Status: Resolved (5) Hypophosphatemia Code(s): E83.39 - OTHER DISORDERS OF PHOSPHORUS METABOLISM Status: Resolved (6) UTI (urinary tract infection) Status: Acute Comment: due to E coli (7) Anxiety and depression Code(s): F41.9 - ANXIETY DISORDER, UNSPECIFIED; F32.9 - MAJOR DEPRESSIVE DISORDER, SINGLE EPISODE, UNSPECIFIED Status: Chronic (8) Diabetes type 2, controlled Code(s): E11.9 - TYPE 2 DIABETES MELLITUS WITHOUT COMPLICATIONS Status: Chronic (9) Dyslipidemia Code(s): E78.5 - HYPERLIPIDEMIA, UNSPECIFIED Status: Chronic (10) GERD (gastroesophageal reflux disease) Code(s): K21.9 - GASTRO-ESOPHAGEAL REFLUX DISEASE WITHOUT ESOPHAGITIS Status: Chronic (11) Hypertension Code(s): I10 - ESSENTIAL (PRIMARY) HYPERTENSION Status: Chronic (12) Macrocytic anemia Code(s): D53.9 - NUTRITIONAL ANEMIA, UNSPECIFIED Status: Chronic (13) 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 Review of Systems - Review of Systems ENT: negative: Ear Pain, Ear Discharge, Nose Pain, Nose Discharge, Nose Congestion, Mouth Pain, Mouth Swelling, Throat Pain, Throat Swelling, Other Respiratory: negative: Cough, Dry, Shortness of Breath, Hemoptysis, SOB with Excertion, Pleuritic Pain, Sputum, Wheezing Cardiovascular: negative: chest pain, palpitations, orthopnea, paroxysmal nocturnal dyspnea, edema, light headedness, other Gastrointestinal: negative: Nausea, Vomiting, Abdominal Pain, Diarrhea, Constipation, Melena, Hematochezia, Other Genitourinary: negative: Dysuria, Frequency, Incontinence, Hematuria, Retention , Other Musculoskeletal: negative: Neck Pain, Shoulder Pain, Arm Pain, Back Pain, Hand Pain, Leg Pain, Foot Pain, Other - Medications/Allergies Allergies/Adverse Reactions: Allergies Allergy/AdvReac Type Severity Reaction Status Date / Time ibuprofen Allergy Rash Verified 09/09/18 00:02 Medications: Current Medications Acetaminophen (Tylenol) 650 mg PO Q4H PRN PRN Reason: Headache/Fever/Mild Pain (1-3) Last Admin: 09/10/18 09:41 Dose: 650 mg Acetaminophen (Tylenol) 650 mg DC Q4H PRN PRN Reason: Headache/Fever/Mild Pain (1-3) Hydrocodone Bitart/Acetaminophen ([place] 5/325) 1 tab PO Q4H PRN PRN Reason: Moderate Pain (4-6) Albuterol Sulfate (Ventolin) 2.5 mg NEB Q6H PRN PRN Reason: Wheezing Artificial Tears (Tears Naturale) 2 drop EA EYE PRN PRN PRN Reason: Dry Eyes Atorvastatin Calcium (Lipitor) 20 mg PO [facility] Last Admin: 09/09/18 21:00 Dose: Not Given Bisacodyl (Dulcolax) 10 mg DC DAILYPRN PRN PRN Reason: Constipation Bisoprolol Fumarate/HCTZ (Ziac 10-6.25) 1 tab PO DAILY [facility] Last Admin: 09/10/18 08:28 Dose: 1 tab Cyanocobalamin (Vitamin B-12) 1,000 mcg PO DAILY [facility] Last Admin: 09/10/18 08:28 Dose: 1,000 mcg Dextrose/Water (Dextrose 50%) 25 gm SLOW IVP PRN PRN PRN Reason: Hypoglycemia Enoxaparin Sodium (Lovenox) 40 mg SC 0900 [facility] Last Admin: 09/10/18 08:26 Dose: 40 mg Folic Acid (Folvite) 1 mg PO DAILY [facility] Last Admin: 09/10/18 08:28 Dose: 1 mg Glucagon (Glucagon) 1 mg IM PRN PRN PRN Reason: Hypoglycemia Guaifenesin (Robitussin Sf) 200 mg PO Q4H PRN PRN Reason: Cough Hydralazine HCl (Apresoline) 10 mg SLOW IVP Q4H PRN PRN Reason: SBP > 180 and HR < 70 Ceftriaxone Sodium 1 gm/ (Sodium Chloride) 100 mls @ 200 mls/hr IVPB Q24HR [facility] Last Admin: 09/10/18 08:27 Dose: 100 mls Dextrose/Water (D5w) 1,000 mls @ 0 mls/hr IV .Q0M PRN PRN Reason: Hypoglycemia Potassium Chloride/Sodium Chloride (1/2 Ns W/Kcl 20 Meq) 1,000 mls @ 100 mls/ hr IV .Q10H [facility] Last Admin: 09/09/18 20:30 Dose: Not Given Insulin Human Lispro (Humalog) 0 units SC .MILD SLIDING SCALE PRN PRN Reason: Mild Correctional Scale Loperamide HCl (Imodium) 2 mg PO PRN PRN PRN Reason: Diarrhea/Loose Stools Loratadine (Claritin) 10 mg PO DAILYPRN PRN PRN Reason: Sinus Symptoms Lorazepam (Ativan) 1 mg PO BID [facility] Last Admin: 09/10/18 08:29 Dose: 1 mg Metformin [facility] (Glucophage) [facility] Last Admin: 09/10/18 08:28 Dose: 500 mg Mirtazapine (Remeron) 15 mg PO [facility] Last Admin: 09/09/18 21:00 Dose: Not Given Ondansetron HCl (Zofran) 4 mg IVP Q6H PRN PRN Reason: Nausea/Vomiting Ondansetron HCl (Zofran Odt) 4 mg PO Q6H PRN PRN Reason: Nausea/Vomiting Pantoprazole Sodium (Protonix) 40 mg PO DAILY [facility] Last Admin: 09/10/18 08:28 Dose: 40 mg Potassium Chloride (K-Dur) [facility] Last Admin: 09/10/18 08:28 Dose: 20 meq Prochlorperazine Maleate (Compazine) 10 mg PO Q6HR PRN PRN Reason: Nausea Senna/Docusate Sodium (Senokot S) 2 tab PO BID PRN PRN Reason: Constipation Simethicone (Mylicon Chewable) 80 mg PO Q6H PRN PRN Reason: Gas Pain Sodium Chloride ([place] Nasal [place] 0.65%) 0 ml EA NARE QIDPRN PRN PRN Reason: Nasal Congestion Throat Lozenges (Cepastat Lozenges) 1 nimisha PO Q2H PRN PRN Reason: Sore Throat Zolpidem Tartrate (Ambien) 5 mg PO HSPRN PRN PRN Reason: Insomnia
[2018-09-10] MEDS: 1/2 NS w/KCL 20 mEq 1,000 ML IV SCH (13:02)
[2018-09-10] MEDS: Mirtazapine 15 MG TAB PO SCH (20:09)
[2018-09-10] MEDS: Atorvastatin Calcium 20 MG TAB PO SCH (20:09)
[2018-09-11] MEDS: 1/2 NS w/KCL 20 mEq 1,000 ML IV SCH ×2 (02:30→15:28)
--- NOTE | 2018-09-11 08:02 | HP ---
PRIMARY CARE PHYSICIAN: Parvez Cooley MD CODE STATUS: DNR/DNI as stated by the patient and confirmed with the daughter at bedside. HISTORY OF PRESENT ILLNESS: The patient came to the hospital after having generalized weakness, the patient had a fall with no loss of consciousness. No clear triggers, no alleviating factors. Looks like her legs have given up. The family was with her, she reported that the patient never tripped prior to fall, in confusion, but no loss of consciousness. The symptoms are severe. The patient has a positive UA, is being treated for a UTI, and for that reason, admitted to the hospital, especially since she is a constant patient. REVIEW OF SYSTEMS: All other systems were reviewed and negative, except for the findings mentioned in the HPI. PAST MEDICAL HISTORY: The patient has a history of diabetes, hyperlipidemia, hypertension, liver cancer. PAST SURGICAL HISTORY: Ganglion cyst removed from wrist, carotid artery surgery , tumor removed from abdominal area in the 70s, hysterectomy. PSYCHIATRIC HISTORY: Anxiety and depression. FAMILY HISTORY: Reviewed and non contributory for current presentation. SOCIAL HISTORY: The patient is at home with family and . Drinks socially. No drugs. Former tobacco user. Quit smoking more than 10 years ago. KNOWN ALLERGIES: Ibuprofen. REPORTED MEDICATIONS: Remeron, bisoprolol, lorazepam, prochlorperazine. PHYSICAL EXAMINATION: VITAL SIGNS: On presentation, blood pressure 117/45 with heart rate 77, respiratory rate 26, temperature 97.6, , oxygen saturation 96% on 2 L. GENERAL: The patient is alert and oriented, not in acute distress. HEENT: Eyes, normal conjunctivae, moist oral mucosa. Anicteric. No JVD. RESPIRATORY: Bilateral air entry. No rales. No wheezes. Symmetric expansion. CARDIOVASCULAR: Normal rate, regular rhythm. No murmurs. No gallop. No edema. ABDOMEN: Soft. Normal bowel sounds. MUSCULOSKELETAL: Baseline range of motion and strength. SKIN: Warm, intact. No pallor. No rash. No redness. Capillary refill seems to be intact. NEUROLOGIC: No evidence of any new focal weakness. Cranial nerves seems to be intact. PSYCHIATRIC: The patient is in good mood. No anxiety. Optimal judgment. DIAGNOSTIC DATA: EKG was reviewed. The patient has a normal sinus rhythm with some atrial complexes. No other significant findings on the EKG. Chest x-ray, stable appearance of the chest as dictated above, persistent, stable, nonspecific linear and decreased density. Head CT, no acute findings. Pelvis x-ray, no displaced pelvic fracture. Leg ultrasound was done, and there is no evidence of DVT in the left lower extremity. LABORATORY DATA: Labs were done. The patient has white count of 14.8 with hemoglobin of 9.9, MCV 107, platelet count 210. Chemistry; sodium 134, potassium 2.6, chloride 100, carbon dioxide 22, anion gap 15, BUN 24, creatinine 1.18, GFR 44, glucose 155, calcium 9.2, total bilirubin 1.1, AST 29, ALT less than 7, alkaline phosphatase 219. First troponin 0.044, second one 0.046, third one 0.042. Albumin 2.7. TSH 1.1. Urine was done and showed elevated white count of greater than 50. ASSESSMENT AND PLAN: The patient will be placed in the hospital with following medical problems: 1. Urinary tract infection, likely due to acute metabolic encephalopathy with change in mental status and fall, the patient started on antibiotics. We will follow cultures. We will treat accordingly. 2. Hypokalemia. Potassium is 2.6, has been replaced, the repeat one is 3.0. We will continue to replace as needed. 3. Hyponatremia. Sodium 134, this is minimal. No need for any acute intervention at this point. 4. Uncontrolled diabetes. The patient is hyperglycemic, reconcile home medications. We will place the patient on sliding scale for optimal control. 5. Mildly elevated troponin, likely [id number] myocardial infarction type 2 secondary to underlying infection. 6. Deep venous thrombosis prophylaxis. 7. Acute metabolic encephalopathy secondary to underlying infection.will need assistance as inpatient. Job ID: [id number] [facility]
[2018-09-11] MEDS: cefTRIAXone\\ROCEPHIN 1 GM in Sodium Chloride 0.9% 100 ML IVPB SCH (08:26)
[2018-09-11] MEDS: Bisoprolol Fumarate/HCTZ 10 mg/6.25 mg Tablet PO SCH (09:01)
[2018-09-11] MEDS: metFORMIN 500 MG TAB PO SCH ×2 (09:02→16:49)
[2018-09-11] MEDS: Folic Acid 1 MG TAB PO SCH (09:02)
[2018-09-11] MEDS: Enoxaparin Sodium 40 MG/0.4 ML SYRINGE SC SCH (09:03)
[2018-09-11] MEDS: Potassium Chloride 20 MEQ TAB PO SCH (09:03)
[2018-09-11] MEDS: Cyanocobalamin (Vitamin B-12) 1,000 MCG TAB PO SCH (09:03)
[2018-09-11] MEDS: Lorazepam 1 MG TAB PO SCH ×2 (09:03→20:49)
--- NOTE | 2018-09-11 14:55 | PDOC.PN ---
- Subjective Encounter Start Date: 09/11/18 Encounter Start Time: 12:00 Subjective: feels weak, has not ambulated so far -: no diarrhea or cough or abd pain -: eating poorly per at bedside - Objective Resuscitation Status - Order Detail: 09/08/18 22:45 Resuscitation Status Routine Resuscitation Status: DNAR: NO Resuscitation Discussed with: as stated by patient, and daughter at bedside MAR Reviewed: Yes Vital Signs & Weight: Vital Signs (12 hours) Temp Pulse Resp BP Pulse Ox 09/11/18 11:40 97.9 F 71 16 133/63 98 09/11/18 08:00 100 09/11/18 07:56 97.6 F 73 16 128/58 L 100 Weight Admit Weight 145 lb 8 oz Weight 145 lb 8 oz I&O: 09/10/18 09/11/18 09/12/18 06:59 06:59 06:59 Intake Total 1590 2280 Balance 1590 2280 Result Diagrams: 09/09/18 04:55 09/09/18 04:55 Additional Labs: Accuchecks 09/11/18 09/11/18 09/10/18 11:03 06:27 16:32 POC Glucose 106 101 112 H Phys Exam - Physical Examination HEENT: PERRLA, moist MMs Neck: no JVD, supple Respiratory: no wheezing, no rales Cardiovascular: RRR, no significant murmur Gastrointestinal: soft, non-tender, positive bowel sounds Musculoskeletal: no edema, pulses present Neurological: non-focal, moves all 4 limbs Dx/Plan (1) UTI (urinary tract infection) Status: Acute Qualifiers: Urinary tract infection type: acute cystitis Hematuria presence: without hematuria Qualified Code(s): N30.00 - Acute cystitis without hematuria Comment: due to E coli (2) 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 Code(s): C25.9 - MALIGNANT NEOPLASM OF PANCREAS, UNSPECIFIED Status: Chronic Comment: on gemcitabine and abraxane (3) Anxiety and depression Code(s): F41.9 - ANXIETY DISORDER, UNSPECIFIED; F32.9 - MAJOR DEPRESSIVE DISORDER, SINGLE EPISODE, UNSPECIFIED Status: Chronic (4) Diabetes type 2, controlled Code(s): E11.9 - TYPE 2 DIABETES MELLITUS WITHOUT COMPLICATIONS Status: Chronic Qualifiers: Diabetes mellitus long term care social worker insulin use: without long term care social worker use Diabetes mellitus complication status: with unspecified complications Qualified Code(s) : E11.8 - Type 2 diabetes mellitus with unspecified complications (5) Dyslipidemia Code(s): E78.5 - HYPERLIPIDEMIA, UNSPECIFIED Status: Chronic (6) GERD (gastroesophageal reflux disease) Code(s): K21.9 - GASTRO-ESOPHAGEAL REFLUX DISEASE WITHOUT ESOPHAGITIS Status: Chronic Qualifiers: Esophagitis presence: esophagitis presence not specified Qualified Code(s) : K21.9 - Gastro-esophageal reflux disease without esophagitis (7) Hypertension Code(s): I10 - ESSENTIAL (PRIMARY) HYPERTENSION Status: Chronic Qualifiers: Hypertension type: essential hypertension Qualified Code(s): I10 - Essential (primary) hypertension (8) Macrocytic anemia Code(s): D53.9 - NUTRITIONAL ANEMIA, UNSPECIFIED Status: Chronic - Plan hemostable -: on ceftriaxone, lipitor, ziac, metformin, remeron, gentle iv fluids -: is deconditioned, will need placement, d/w at bedside -: cm for help with placement at [facility] if ins approves -: continue to mobilize, encourage po intake, oob to chair * . Review of Systems - Medications/Allergies Allergies/Adverse Reactions: Allergies Allergy/AdvReac Type Severity Reaction Status Date / Time ibuprofen Allergy Rash Verified 09/09/18 00:02 Medications: Current Medications Acetaminophen (Tylenol) 650 mg PO Q4H PRN PRN Reason: Headache/Fever/Mild Pain (1-3) Last Admin: 09/10/18 09:41 Dose: 650 mg Acetaminophen (Tylenol) 650 mg [place] Q4H PRN PRN Reason: Headache/Fever/Mild Pain (1-3) Hydrocodone Bitart/Acetaminophen ([place] 5/325) 1 tab PO Q4H PRN PRN Reason: Moderate Pain (4-6) Albuterol Sulfate (Ventolin) 2.5 mg NEB Q6H PRN PRN Reason: Wheezing Artificial Tears (Tears Naturale) 2 drop EA EYE PRN PRN PRN Reason: Dry Eyes Atorvastatin Calcium (Lipitor) 20 mg PO HS [facility] Last Admin: 09/10/18 20:09 Dose: 20 mg Bisacodyl (Dulcolax) 10 mg [place] DAILYPRN PRN PRN Reason: Constipation Bisoprolol Fumarate/HCTZ (Ziac 10-6.25) 1 tab PO DAILY [facility] Last Admin: 09/11/18 09:01 Dose: 1 tab Cyanocobalamin (Vitamin B-12) 1,000 mcg PO DAILY [facility] Last Admin: 09/11/18 09:03 Dose: 1,000 mcg Dextrose/Water (Dextrose 50%) 25 gm SLOW IVP PRN PRN PRN Reason: Hypoglycemia Enoxaparin Sodium (Lovenox) 40 mg SC 0900 [facility] Last Admin: 09/11/18 09:03 Dose: 40 mg Folic Acid (Folvite) 1 mg PO DAILY [facility] Last Admin: 09/11/18 09:02 Dose: 1 mg Glucagon (Glucagon) 1 mg IM PRN PRN PRN Reason: Hypoglycemia Guaifenesin (Robitussin Sf) 200 mg PO Q4H PRN PRN Reason: Cough Hydralazine HCl (Apresoline) 10 mg SLOW IVP Q4H PRN PRN Reason: SBP > 180 and HR < 70 Ceftriaxone Sodium 1 gm/ (Sodium Chloride) 100 mls @ 200 mls/hr IVPB Q24HR [facility] Last Admin: 09/11/18 08:26 Dose: 100 mls Dextrose/Water (D5w) 1,000 mls @ 0 mls/hr IV .Q0M PRN PRN Reason: Hypoglycemia Potassium Chloride/Sodium Chloride (1/2 Ns W/Kcl 20 Meq) 1,000 mls @ 100 mls/ hr IV .Q10H [facility] Last Admin: 09/11/18 02:30 Dose: 1,000 mls Insulin Human Lispro (Humalog) 0 units SC .MILD SLIDING SCALE PRN PRN Reason: Mild Correctional Scale Loperamide HCl (Imodium) 2 mg PO PRN PRN PRN Reason: Diarrhea/Loose Stools Loratadine (Claritin) 10 mg PO DAILYPRN PRN PRN Reason: Sinus Symptoms Lorazepam (Ativan) 1 mg PO BID [facility] Last Admin: 09/11/18 09:03 Dose: 1 mg Metformin HCl (Glucophage) 500 mg PO BID[facility] Last Admin: 09/11/18 09:02 Dose: 500 mg Mirtazapine (Remeron) 15 mg PO HS [facility] Last Admin: 09/10/18 20:09 Dose: 15 mg Ondansetron HCl (Zofran) 4 mg IVP Q6H PRN PRN Reason: Nausea/Vomiting Ondansetron HCl (Zofran Odt) 4 mg PO Q6H PRN PRN Reason: Nausea/Vomiting Pantoprazole Sodium (Protonix) 40 mg PO DAILY [facility] Last Admin: 09/11/18 09:03 Dose: 40 mg Potassium Chloride (K-Dur) 20 meq PO QAM-[facility] Last Admin: 09/11/18 09:03 Dose: 20 meq Prochlorperazine Maleate (Compazine) 10 mg PO Q6HR PRN PRN Reason: Nausea Senna/Docusate Sodium (Senokot S) 2 tab PO BID PRN PRN Reason: Constipation Simethicone (Mylicon Chewable) 80 mg PO Q6H PRN PRN Reason: Gas Pain Sodium Chloride ([place] Nasal [place] 0.65%) 0 ml EA NARE QIDPRN PRN PRN Reason: Nasal Congestion Throat Lozenges (Cepastat Lozenges) 1 nimisha PO Q2H PRN PRN Reason: Sore Throat Zolpidem Tartrate (Ambien) 5 mg PO HSPRN PRN PRN Reason: Insomnia
[2018-09-11] MEDS: Mirtazapine 15 MG TAB PO SCH (20:50)
[2018-09-11] MEDS: Atorvastatin Calcium 20 MG TAB PO SCH (20:50)
[2018-09-12] MEDS: 1/2 NS w/KCL 20 mEq 1,000 ML IV SCH ×3 (04:12→17:17)
[2018-09-12 08:10] LABS: #Eosinphils 0.2 thou/uL (0.0-0.7); #Lymphocytes 1.7 thou/uL (1.20-3.40); #Monocytes 0.5 thou/uL (0.11-0.59); %Basophils 0.1 % (0.0-1.0); %Eosinophils 2.5 % (0.0-10.0); %Lymphocytes 26.6 % (21.0-51.0); %Monocytes 8.1 % (0.0-10.0); %Neutrophils 62.8 % (42.0-75.0); Hemoglobin 8.8 g/dL (12.0-16.0); Mean Corpuscular HGB CONC 32.3 g/dL (32.0-36.0); Mean Corpuscular Hemoglobin 34.7 pg (27.0-31.0); Mean Platelet Volume 8.2 fL (7.4-10.4); Platelet Count 189 thou/uL (130-400); RBC Distribution Width 15.7 % (11.5-14.5); Red Blood Cell (RBC) Count 2.53 mill/uL (4.20-5.40); White Blood Cell (WBC) Count 6.4 thou/uL (4.8-10.8)
[2018-09-12 08:28] LABS: Anion Gap 10 mmol/L (10-20); BUN (Urea Nitrogen) 12 mg/dL (9.8-20.1); Calc. Creatinine Clearance 63 mL/min (70-130); Calcium 8.4 mg/dL (7.8-10.44); Carbon Dioxide 23 mmol/L (23-31); Chloride 103 mmol/L (98-107); Estimated GFR-MDRD 75; Glucose 105 mg/dL (83-110); Potassium 4.6 mmol/L (3.5-5.1); Sodium 131 mmol/L (136-145)
[2018-09-12] MEDS: Enoxaparin Sodium 40 MG/0.4 ML SYRINGE SC SCH (09:32)
[2018-09-12] MEDS: metFORMIN 500 MG TAB PO SCH ×2 (09:33→17:52)
[2018-09-12] MEDS: Potassium Chloride 20 MEQ TAB PO SCH (09:34)
[2018-09-12] MEDS: Lorazepam 1 MG TAB PO SCH ×2 (09:34→20:15)
[2018-09-12] MEDS: Cyanocobalamin (Vitamin B-12) 1,000 MCG TAB PO SCH (09:34)
[2018-09-12] MEDS: Folic Acid 1 MG TAB PO SCH (09:34)
[2018-09-12] MEDS: cefTRIAXone\\ROCEPHIN 1 GM in Sodium Chloride 0.9% 100 ML IVPB SCH (09:35)
[2018-09-12] MEDS: Bisoprolol Fumarate/HCTZ 10 mg/6.25 mg Tablet PO SCH (09:35)
--- NOTE | 2018-09-12 11:41 | PDOC.HOSPP ---
- Subjective Subjective: is trying to eat breakfast, not eating much no sob or abd pain responds well to verbal questions - Objective Vital Signs & Weight: Vital Signs (12 hours) Temp Pulse Resp BP Pulse Ox 09/12/18 11:28 97.5 F L 73 28 H 116/58 L 98 09/12/18 08:09 97.9 F 73 18 124/58 L 100 Weight Admit Weight 145 lb 8 oz Weight 145 lb 8 oz I&O: 09/11/18 09/12/18 09/13/18 06:59 06:59 06:59 Intake Total 2280 1850 Balance 2280 1850 Result Diagrams: 09/12/18 07:44 09/12/18 07:44 Additional Labs: Accuchecks 09/12/18 09/11/18 09/11/18 05:18 20:12 15:54 POC Glucose 78 104 70 ROS - Review of Systems All systems: All other ROS were reviewed and found negative. - Medication Medications: Active Medications Generic Name Dose Route Start Last Admin Trade Name Freq PRN Reason Stop Dose Admin Acetaminophen 650 mg 09/08/18 22:45 09/10/18 09:41 Tylenol PO 650 mg Q4H PRN Administration Headache/Fever/Mild Pain (1-3) Atorvastatin Calcium 20 mg 09/09/18 21:00 09/11/18 20:50 Lipitor PO 20 mg HS [facility] Administration Bisoprolol Fumarate/HCTZ 1 tab 09/09/18 09:00 09/12/18 09:35 Ziac 10-6.25 PO 1 tab DAILY [facility] Administration Cyanocobalamin 1,000 mcg 09/09/18 09:00 09/12/18 09:34 Vitamin B-12 PO 1,000 mcg DAILY [facility] Administration Enoxaparin Sodium 40 mg 09/09/18 09:00 09/12/18 09:32 Lovenox SC 40 mg 0900 [facility] Administration Folic Acid 1 mg 09/09/18 09:00 09/12/18 09:34 Folvite PO 1 mg DAILY [facility] Administration Ceftriaxone Sodium 1 gm/ 100 mls @ 200 mls/hr 09/09/18 09:00 09/12/18 09:35 Sodium Chloride IVPB 100 mls Q24HR [facility] Administration Potassium Chloride/Sodium Chloride 1,000 mls @ 100 mls/hr 09/09/18 10:30 04:12 1 Ns W/Kcl 20 Meq IV 1,000 mls .Q10H [facility] Administration Lorazepam 1 mg 09/09/18 09:00 09/12/18 09:34 Ativan PO 1 mg BID [facility] Administration Metformin HCl 500 mg 09/09/18 08:00 09/12/18 09:33 Glucophage PO 500 mg BID-[facility] Administration Mirtazapine 15 mg 09/09/18 21:00 09/11/18 20:50 Remeron PO 15 mg HS [facility] Administration Pantoprazole Sodium 40 mg 09/09/18 09:00 09/12/18 09:34 Protonix PO 40 mg DAILY [facility] Administration Potassium Chloride 20 meq 09/09/18 08:00 09/12/18 09:34 K-Dur PO 20 meq QAM-[facility] Administration - Exam Eye: PERRL, anicteric sclera ENT: no oropharyngeal lesions, dry oral mucosa Neck: supple, no JVD Heart: RRR, no gallops Respiratory: no wheezes, no rales Gastrointestinal: soft, non-distended, normal bowel sounds Extremities: no cyanosis, no clubbing Skin: no lesions, no rashes Neurological: CN's grossly intact, no focal deficits Musculoskeletal: normal tone, generalized weakness Psychiatric: normal affect, A&O x 3 Hosp A/P (1) UTI (urinary tract infection) Status: Acute Qualifiers: Urinary tract infection type: acute cystitis Hematuria presence: without hematuria Qualified Code(s): N30.00 - Acute cystitis without hematuria (2) 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 Code(s): C25.9 - MALIGNANT NEOPLASM OF PANCREAS, UNSPECIFIED Status: Chronic (3) Anxiety and depression Code(s): F41.9 - ANXIETY DISORDER, UNSPECIFIED; F32.9 - MAJOR DEPRESSIVE DISORDER, SINGLE EPISODE, UNSPECIFIED Status: Chronic (4) Diabetes type 2, controlled Code(s): E11.9 - TYPE 2 DIABETES MELLITUS WITHOUT COMPLICATIONS Status: Chronic Qualifiers: Diabetes mellitus termite inspector insulin use: without termite inspector use Diabetes mellitus complication status: with unspecified complications Qualified Code(s) : E11.8 - Type 2 diabetes mellitus with unspecified complications (5) Dyslipidemia Code(s): E78.5 - HYPERLIPIDEMIA, UNSPECIFIED Status: Chronic (6) GERD (gastroesophageal reflux disease) Code(s): K21.9 - GASTRO-ESOPHAGEAL REFLUX DISEASE WITHOUT ESOPHAGITIS Status: Chronic Qualifiers: Esophagitis presence: esophagitis presence not specified Qualified Code(s) : K21.9 - Gastro-esophageal reflux disease without esophagitis (7) Hypertension Code(s): I10 - ESSENTIAL (PRIMARY) HYPERTENSION Status: Chronic Qualifiers: Hypertension type: essential hypertension Qualified Code(s): I10 - Essential (primary) hypertension (8) Macrocytic anemia Code(s): D53.9 - NUTRITIONAL ANEMIA, UNSPECIFIED Status: Chronic - Plan hemostable is on ceftriaxone, plan to switch to cipro in am encourage po intake awaiting placement medically stable for discharge continue lipitor, ziac, remeron PT to mobilize as tolerated
[2018-09-12] MEDS: Atorvastatin Calcium 20 MG TAB PO SCH (20:15)
[2018-09-12] MEDS: Mirtazapine 15 MG TAB PO SCH (20:15)
[2018-09-13] MEDS: 1/2 NS w/KCL 20 mEq 1,000 ML IV SCH ×2 (02:00→09:57)
[2018-09-13] MEDS ORDERED: Ciprofloxacin 500 MG TAB PO SCH (09:00)
[2018-09-13] MEDS: Cyanocobalamin (Vitamin B-12) 1,000 MCG TAB PO SCH (09:42)
[2018-09-13] MEDS: Potassium Chloride 20 MEQ TAB PO SCH (09:42)
[2018-09-13] MEDS: Bisoprolol Fumarate/HCTZ 10 mg/6.25 mg Tablet PO SCH (09:42)
[2018-09-13] MEDS: Lorazepam 1 MG TAB PO SCH ×2 (09:43→19:58)
[2018-09-13] MEDS: Folic Acid 1 MG TAB PO SCH (09:43)
[2018-09-13] MEDS: metFORMIN 500 MG TAB PO SCH ×2 (09:43→16:49)
[2018-09-13] MEDS: Enoxaparin Sodium 40 MG/0.4 ML SYRINGE SC SCH (09:43)
--- NOTE | 2018-09-13 13:14 | PDOC.HOSPP ---
- Subjective Subjective: awake, no pain, feels better - Objective Vital Signs & Weight: Vital Signs (12 hours) Temp Pulse Resp BP BP Pulse Ox 09/13/18 12:25 97.9 F 75 24 H 121/58 L 96 09/13/18 08:41 97.4 F L 75 24 H 148/65 H 100 09/13/18 08:00 100 Weight Admit Weight 145 lb 8 oz Weight 145 lb 8 oz I&O: 09/12/18 09/13/18 09/14/18 06:59 06:59 06:59 Intake Total 1850 1580 Balance 1850 1580 Result Diagrams: 09/12/18 07:44 09/12/18 07:44 Additional Labs: Accuchecks 09/13/18 09/13/18 09/12/18 12:19 05:21 20:43 POC Glucose 91 97 126 H 09/12/18 15:46 POC Glucose 96 ROS - Review of Systems All systems: All other ROS were reviewed and found negative. - Medication Medications: Active Medications Generic Name Dose Route Start Last Admin Trade Name Freq PRN Reason Stop Dose Admin Acetaminophen 650 mg 09/08/18 22:45 09/10/18 09:41 Tylenol PO 650 mg Q4H PRN Administration Headache/Fever/Mild Pain (1-3) Atorvastatin Calcium 20 mg 09/09/18 21:00 09/12/18 20:15 Lipitor PO 20 mg HS JOURDAN Administration Bisoprolol Fumarate/HCTZ 1 tab 09/09/18 09:00 09/13/18 09:42 Ziac 10-6.25 PO 1 tab DAILY JOURDAN Administration Cyanocobalamin 1,000 mcg 09/09/18 09:00 09/13/18 09:42 Vitamin B-12 PO 1,000 mcg DAILY JOURDAN Administration Enoxaparin Sodium 40 mg 09/09/18 09:00 09/13/18 09:43 Lovenox SC 40 mg 0900 JOURDAN Administration Folic Acid 1 mg 09/09/18 09:00 09/13/18 09:43 Folvite PO 1 mg DAILY JOURDAN Administration Lorazepam 1 mg 09/09/18 09:00 09/13/18 09:43 Ativan PO 1 mg BID JOURDAN Administration Metformin HCl 500 mg 09/09/18 08:00 09/13/18 09:43 Glucophage PO 500 mg BID-WM JOURDAN Administration Mirtazapine 15 mg 09/09/18 21:00 09/12/18 20:15 Remeron PO 15 mg HS JOURDAN Administration Pantoprazole Sodium 40 mg 09/09/18 09:00 09/13/18 09:42 Protonix PO 40 mg DAILY JOURDAN Administration Potassium Chloride 20 meq 09/09/18 08:00 09/13/18 09:42 K-Dur PO 20 meq QAM-WM JOURDAN Administration - Exam awake alert Eye: PERRL, anicteric sclera ENT: normocephalic atraumatic, moist mucosa Neck: supple, no JVD Heart: RRR, no murmur Respiratory: no wheezes, no rales Gastrointestinal: soft, normal bowel sounds, tender to palpation Extremities: no clubbing, 1+ LE edema Skin: normal turgor Neurological: CN's grossly intact, no focal deficits Musculoskeletal: normal tone Psychiatric: normal affect, A&O x 3 Hosp A/P (1) UTI (urinary tract infection) Status: Acute Qualifiers: Urinary tract infection type: acute cystitis Hematuria presence: without hematuria Qualified Code(s): N30.00 - Acute cystitis without hematuria (2) 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 Code(s): C25.9 - MALIGNANT NEOPLASM OF PANCREAS, UNSPECIFIED Status: Chronic (3) Anxiety and depression Code(s): F41.9 - ANXIETY DISORDER, UNSPECIFIED; F32.9 - MAJOR DEPRESSIVE DISORDER, SINGLE EPISODE, UNSPECIFIED Status: Chronic (4) Diabetes type 2, controlled Code(s): E11.9 - TYPE 2 DIABETES MELLITUS WITHOUT COMPLICATIONS Status: Chronic Qualifiers: Diabetes mellitus senior living insulin 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 Diabetes mellitus complication status: with unspecified complications Qualified Code(s) : E11.8 - Type 2 diabetes mellitus with unspecified complications (5) Dyslipidemia Code(s): E78.5 - HYPERLIPIDEMIA, UNSPECIFIED Status: Chronic (6) GERD (gastroesophageal reflux disease) Code(s): K21.9 - GASTRO-ESOPHAGEAL REFLUX DISEASE WITHOUT ESOPHAGITIS Status: Chronic Qualifiers: Esophagitis presence: esophagitis presence not specified Qualified Code(s) : K21.9 - Gastro-esophageal reflux disease without esophagitis (7) Hypertension Code(s): I10 - ESSENTIAL (PRIMARY) HYPERTENSION Status: Chronic Qualifiers: Hypertension type: essential hypertension Qualified Code(s): I10 - Essential (primary) hypertension (8) Macrocytic anemia Code(s): D53.9 - NUTRITIONAL ANEMIA, UNSPECIFIED Status: Chronic - Plan change iv antibiotics to cipro x 2 days and dc awaiting placement d/w no chemo will be given for another 2-3 weeks until she gets physically stronger, if not hospice Current chemotherapy has helped her, has not had any progression of cancer. hemostable
[2018-09-13] MEDS: Mirtazapine 15 MG TAB PO SCH (19:58)
[2018-09-13] MEDS: Ciprofloxacin 500 MG TAB PO SCH (19:58)
[2018-09-13] MEDS: Atorvastatin Calcium 20 MG TAB PO SCH (19:58)
[2018-09-14] MEDS: Ciprofloxacin 500 MG TAB PO SCH ×2 (04:59→20:01)
[2018-09-14] MEDS: metFORMIN 500 MG TAB PO SCH ×2 (09:10→16:50)
[2018-09-14] MEDS: Potassium Chloride 20 MEQ TAB PO SCH (09:11)
[2018-09-14] MEDS: Bisoprolol Fumarate/HCTZ 10 mg/6.25 mg Tablet PO SCH (09:12)
[2018-09-14] MEDS: Lorazepam 1 MG TAB PO SCH ×2 (09:12→20:01)
[2018-09-14] MEDS: Folic Acid 1 MG TAB PO SCH (09:12)
[2018-09-14] MEDS: Cyanocobalamin (Vitamin B-12) 1,000 MCG TAB PO SCH (09:12)
[2018-09-14] MEDS: Enoxaparin Sodium 40 MG/0.4 ML SYRINGE SC SCH (09:13)
--- NOTE | 2018-09-14 12:28 | PDOC.HOSPP ---
- Subjective Subjective: awake, not in distress eating 40-50% of her meals per patient still has not ambulated - Objective Vital Signs & Weight: Vital Signs (12 hours) Temp Pulse Resp BP Pulse Ox 09/14/18 08:00 97 09/14/18 07:45 97.7 F 78 16 129/60 97 Weight Admit Weight 145 lb 8 oz Weight 145 lb 8 oz I&O: 09/13/18 09/14/18 09/15/18 06:59 06:59 06:59 Intake Total 1580 1400 Balance 1580 1400 Result Diagrams: 09/12/18 07:44 09/12/18 07:44 Additional Labs: Accuchecks 09/14/18 09/13/18 09/13/18 04:57 20:26 16:18 POC Glucose 106 78 101 09/13/18 12:19 POC Glucose 91 ROS - Review of Systems All systems: All other ROS were reviewed and found negative. - Medication Medications: Active Medications Generic Name Dose Route Start Last Admin Trade Name Freq PRN Reason Stop Dose Admin Acetaminophen 650 mg 09/08/18 22:45 09/10/18 09:41 Tylenol PO 650 mg Q4H PRN Administration Headache/Fever/Mild Pain (1-3) Atorvastatin Calcium 20 mg 09/09/18 21:00 09/13/18 19:58 Lipitor PO 20 mg HS JOURDAN Administration Bisoprolol Fumarate/HCTZ 1 tab 09/09/18 09:00 09/14/18 09:12 Ziac 10-6.25 PO 1 tab DAILY JOURDAN Administration Ciprofloxacin 500 mg 09/13/18 20:00 09/14/18 04:59 Cipro PO 500 mg JOURDAN Administration Cyanocobalamin 1,000 mcg 09/09/18 09:00 09/14/18 09:12 Vitamin B-12 PO 1,000 mcg DAILY JUORDAN Administration Enoxaparin Sodium 40 mg 09/09/18 09:00 09/14/18 09:13 Lovenox SC 40 mg 09 JOURDAN Administration Folic Acid 1 mg 09/09/18 09:00 09/14/18 09:12 Folvite PO 1 mg DAILY JOURDAN Administration Lorazepam 1 mg 09/09/18 09:00 09/14/18 09:12 Ativan PO 1 mg BID JOURDAN Administration Metformin HCl 500 mg 09/09/18 08:00 09/14/18 09:10 Glucophage PO 500 mg BID-WM JOURDAN Administration Mirtazapine 15 mg 09/09/18 21:00 09/13/18 19:58 Remeron PO 15 mg HS JOURDAN Administration Pantoprazole Sodium 40 mg 09/09/18 09:00 09/14/18 09:12 Protonix PO 40 mg DAILY JOURDAN Administration Potassium Chloride 20 meq 09/09/18 08:00 09/14/18 09:11 K-Dur PO 20 meq QAM-WM JOURDAN Administration - Exam NAD, awake alert Eye: PERRL, anicteric sclera ENT: normocephalic atraumatic, moist mucosa Neck: supple, no JVD Heart: RRR, no murmur Respiratory: no wheezes, no rales Gastrointestinal: soft, non-tender, normal bowel sounds Extremities: no cyanosis, no clubbing Skin: no lesions, no rashes Neurological: CN's grossly intact, no focal deficits Musculoskeletal: normal tone Psychiatric: normal affect, A&O x 3 Hosp A/P (1) UTI (urinary tract infection) Status: Acute Qualifiers: Urinary tract infection type: acute cystitis Hematuria presence: without hematuria Qualified Code(s): N30.00 - Acute cystitis without hematuria (2) 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 Code(s): C25.9 - MALIGNANT NEOPLASM OF PANCREAS, UNSPECIFIED Status: Chronic (3) Anxiety and depression Code(s): F41.9 - ANXIETY DISORDER, UNSPECIFIED; F32.9 - MAJOR DEPRESSIVE DISORDER, SINGLE EPISODE, UNSPECIFIED Status: Chronic (4) Diabetes type 2, controlled Code(s): E11.9 - TYPE 2 DIABETES MELLITUS WITHOUT COMPLICATIONS Status: Chronic Qualifiers: Diabetes 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: without superintendent 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 Diabetes mellitus complication status: with unspecified complications Qualified Code(s) : E11.8 - Type 2 diabetes mellitus with unspecified complications (5) Dyslipidemia Code(s): E78.5 - HYPERLIPIDEMIA, UNSPECIFIED Status: Chronic (6) GERD (gastroesophageal reflux disease) Code(s): K21.9 - GASTRO-ESOPHAGEAL REFLUX DISEASE WITHOUT ESOPHAGITIS Status: Chronic Qualifiers: Esophagitis presence: esophagitis presence not specified Qualified Code(s) : K21.9 - Gastro-esophageal reflux disease without esophagitis (7) Hypertension Code(s): I10 - ESSENTIAL (PRIMARY) HYPERTENSION Status: Chronic Qualifiers: Hypertension type: essential hypertension Qualified Code(s): I10 - Essential (primary) hypertension (8) Macrocytic anemia Code(s): D53.9 - NUTRITIONAL ANEMIA, UNSPECIFIED Status: Chronic - Plan hemostable is on cipro for uti medically stable for discharge is deconditioned, needs PT to mobilize more, has not amb so far awaiting placement No chemo for another 2 weeks until pt gets better physically
[2018-09-14] MEDS: Atorvastatin Calcium 20 MG TAB PO SCH (20:01)
[2018-09-14] MEDS: Mirtazapine 15 MG TAB PO SCH (20:01)
[2018-09-15] MEDS: Ciprofloxacin 500 MG TAB PO SCH (05:43)
[2018-09-15 07:53] LABS: #Eosinphils 0.2 thou/uL (0.0-0.7); #Lymphocytes 1.6 thou/uL (1.20-3.40); #Monocytes 0.5 thou/uL (0.11-0.59); #Neutrophils 3.3 thou/uL (1.40-6.50); %Basophils 0.3 % (0.0-1.0); %Eosinophils 2.8 % (0.0-10.0); %Lymphocytes 28.9 % (21.0-51.0); %Monocytes 9.3 % (0.0-10.0); %Neutrophils 58.8 % (42.0-75.0); Mean Corpuscular HGB CONC 32.9 g/dL (32.0-36.0); Mean Corpuscular Hemoglobin 34.9 pg (27.0-31.0); Mean Platelet Volume 8.3 fL (7.4-10.4); Platelet Count 183 thou/uL (130-400); RBC Distribution Width 15.5 % (11.5-14.5); Red Blood Cell (RBC) Count 2.58 mill/uL (4.20-5.40); White Blood Cell (WBC) Count 5.7 thou/uL (4.8-10.8)
[2018-09-15 08:09] LABS: Anion Gap 10 mmol/L (10-20); BUN (Urea Nitrogen) 11 mg/dL (9.8-20.1); Calc. Creatinine Clearance 56 mL/min (70-130); Calcium 8.9 mg/dL (7.8-10.44); Carbon Dioxide 26 mmol/L (23-31); Chloride 102 mmol/L (98-107); Estimated GFR-MDRD 65; Glucose 84 mg/dL (83-110); Potassium 4.2 mmol/L (3.5-5.1); Sodium 134 mmol/L (136-145)
[2018-09-15] MEDS: Cyanocobalamin (Vitamin B-12) 1,000 MCG TAB PO SCH (09:51)
[2018-09-15] MEDS: Folic Acid 1 MG TAB PO SCH (09:51)
[2018-09-15] MEDS: Enoxaparin Sodium 40 MG/0.4 ML SYRINGE SC SCH (09:52)
[2018-09-15] MEDS: Potassium Chloride 20 MEQ TAB PO SCH (09:52)
[2018-09-15] MEDS: Bisoprolol Fumarate/HCTZ 10 mg/6.25 mg Tablet PO SCH (09:52)
[2018-09-15] MEDS: Lorazepam 1 MG TAB PO SCH (09:52)
[2018-09-15] MEDS: metFORMIN 500 MG TAB PO SCH ×2 (09:52→17:01)
--- NOTE | 2018-09-15 13:45 | PDOC.HOSPP ---
- Subjective Subjective: awake, no pain was tired yesterday and didn't work with PT, so far has not ambulated yet no sob or abd pain is eating around 50% of her meal doesn't like ensure/glucerna - Objective Vital Signs & Weight: Vital Signs (12 hours) Temp Pulse Resp BP BP Pulse Ox 09/15/18 12:00 97.7 F 75 18 114/54 L 97 09/15/18 08:10 97 09/15/18 07:50 97.9 F 75 20 123/51 L 97 09/15/18 04:00 97.8 F 76 16 115/56 L 100 Weight Admit Weight 145 lb 8 oz Weight 145 lb 8 oz I&O: 09/14/18 09/15/18 09/16/18 06:59 06:59 06:59 Intake Total 1400 660 Balance 1400 660 Result Diagrams: 09/15/18 07:42 09/15/18 07:42 Additional Labs: Accuchecks 09/15/18 09/15/18 09/14/18 11:10 05:53 20:06 POC Glucose 97 85 120 H 09/14/18 16:37 POC Glucose 114 H ROS - Review of Systems All systems: All other ROS were reviewed and found negative. - Medication Medications: Active Medications Generic Name Dose Route Start Last Admin Trade Name Wen PRN Reason Stop Dose Admin Acetaminophen 650 mg 09/08/18 22:45 09/10/18 09:41 Tylenol PO 650 mg Q4H PRN Administration Headache/Fever/Mild Pain (1-3) Atorvastatin Calcium 20 mg 09/09/18 21:00 09/14/18 20:01 Lipitor PO 20 mg HS JOURDAN Administration Bisoprolol Fumarate/HCTZ 1 tab 09/09/18 09:00 09/15/18 09:52 Ziac 10-6.25 PO 1 tab DAILY JOURDAN Administration Ciprofloxacin 500 mg 09/13/18 20:00 09/15/18 05:43 Cipro PO 500 mg JOURDAN Administration Cyanocobalamin 1,000 mcg 09/09/18 09:00 09/15/18 09:51 Vitamin B-12 PO 1,000 mcg DAILY JOURDAN Administration Enoxaparin Sodium 40 mg 09/09/18 09:00 09/15/18 09:52 Lovenox SC 40 mg 09 JOURDAN Administration Folic Acid 1 mg 09/09/18 09:00 09/15/18 09:51 Folvite PO 1 mg DAILY JOURDAN Administration Lorazepam 1 mg 09/09/18 09:00 09/15/18 09:52 Ativan PO 1 mg BID JOURDAN Administration Metformin HCl 500 mg 09/09/18 08:00 09/15/18 09:52 Glucophage PO 500 mg BID-WM JOURDAN Administration Mirtazapine 15 mg 09/09/18 21:00 09/14/18 20:01 Remeron PO 15 mg HS JOURDAN Administration Pantoprazole Sodium 40 mg 09/09/18 09:00 09/15/18 09:51 Protonix PO 40 mg DAILY JOURDNA Administration Potassium Chloride 20 meq 09/09/18 08:00 09/15/18 09:52 K-Dur PO 20 meq QAM-WM JOURDAN Administration - Exam NAD, awake alert Eye: PERRL, anicteric sclera ENT: normocephalic atraumatic, moist mucosa Neck: supple, no JVD Heart: RRR, no murmur Respiratory: no wheezes, no rales Gastrointestinal: soft, non-distended, normal bowel sounds Extremities: no clubbing, no edema Neurological: CN's grossly intact, no focal deficits Psychiatric: normal affect, A&O x 3 Hosp A/P (1) UTI (urinary tract infection) Status: Resolved Qualifiers: Urinary tract infection type: acute cystitis Hematuria presence: without hematuria Qualified Code(s): N30.00 - Acute cystitis without hematuria (2) 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 Code(s): C25.9 - MALIGNANT NEOPLASM OF PANCREAS, UNSPECIFIED Status: Chronic (3) Anxiety and depression Code(s): F41.9 - ANXIETY DISORDER, UNSPECIFIED; F32.9 - MAJOR DEPRESSIVE DISORDER, SINGLE EPISODE, UNSPECIFIED Status: Chronic (4) Diabetes type 2, controlled Code(s): E11.9 - TYPE 2 DIABETES MELLITUS WITHOUT COMPLICATIONS Status: Chronic Qualifiers: Diabetes mellitus 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 Diabetes mellitus complication status: with unspecified complications Qualified Code(s) : E11.8 - Type 2 diabetes mellitus with unspecified complications (5) Dyslipidemia Code(s): E78.5 - HYPERLIPIDEMIA, UNSPECIFIED Status: Chronic (6) GERD (gastroesophageal reflux disease) Code(s): K21.9 - GASTRO-ESOPHAGEAL REFLUX DISEASE WITHOUT ESOPHAGITIS Status: Chronic Qualifiers: Esophagitis presence: esophagitis presence not specified Qualified Code(s) : K21.9 - Gastro-esophageal reflux disease without esophagitis (7) Hypertension Code(s): I10 - ESSENTIAL (PRIMARY) HYPERTENSION Status: Chronic Qualifiers: Hypertension type: essential hypertension Qualified Code(s): I10 - Essential (primary) hypertension (8) Macrocytic anemia Code(s): D53.9 - NUTRITIONAL ANEMIA, UNSPECIFIED Status: Chronic - Plan hemostable will dc cipro, has finished course for uti awaiting placement may dc anytime placement is ready continue ziac, lipitor and remeron encourage po intake and pt was counselled to work with PT.
[2018-09-15 17:22] VITALS: BP 119/58; TEMP 98.1
--- NOTE | 2018-09-15 21:25 | DIS ---
DATE OF ADMISSION: 09/08/2018 DATE OF DISCHARGE: 09/15/2018 DISCHARGE DISPOSITION: [facility] in [place]. PRIMARY DISCHARGE DIAGNOSES: 1. Urinary tract infection. 2. Acute metabolic encephalopathy on arrival resolved. 3. Severe deconditioning. 4. History of pancreatic cancer with metastasis to liver which is stable on current chemotherapy regimen. 5. Anxiety. 6. Depression. 7. Diabetes mellitus type 2. 8. Dyslipidemia. 9. Gastroesophageal reflux disease. 10. Hypertension. 11. Macrocytic anemia. PROCEDURES DONE DURING HOSPITALIZATION: CT brain done showed no acute findings. Pelvic x-ray done showed no displaced pelvic fracture. Chest x-ray done showed persistent stable nonspecific linear interstitial density. No acute changes were seen. Ultrasound venous Doppler of left lower extremity done showed no evidence of DVT. Urine culture grew E. coli sensitive to all antibiotics except ampicillin and Bactrim. Had a white count of 14 on the day of admission with discharge number of 5.7, H and H of 9 and 27, platelet count 183, MCV is 106. Discharge BUN and creatinine 11 and 0.8. Troponin I indeterminate, peaking up to 0.04. CK-MB 0.5. TSH 1.1. UA on admission was positive for UTI. DISCHARGE MEDICATIONS: 1. Simvastatin 40 mg p.o. at bedtime. 2. Vitamin B12 1000 mcg p.o. daily. 3. Folic acid 1 mg p.o. daily. 4. Protonix 40 mg p.o. daily. 5. Mirtazapine 15 mg p.o. at bedtime. 6. Metformin 500 mg p.o. twice daily. 7. Lorazepam 1 mg p.o. twice daily. 8. Ziac 1 tablet daily. 9. Albuterol nebulizer q.6 hourly p.r.n. ALLERGIES: ALLERGIC TO IBUPROFEN. DISCHARGE PLAN: The patient to follow up with primary care physician in 1 week. BRIEF COURSE DURING HOSPITALIZATION: The patient initially was brought to emergency room with complaints of generalized weakness and confusion. She also was severely deconditioned on arrival. She has known history of pancreatic cancer with metastasis to liver. She is on chemotherapy for the same. In view of this history, the patient was admitted to Oncology floor. She has had blood and urine cultures obtained. Initial UA was positive for UTI. She was on IV antibiotics which was transitioned to ciprofloxacin, later discontinued after full course. She still has severe physical deconditioning and PT/OT therapies were requested. The patient is yet to ambulate and is being discharged to [facility] in [facility] for further recuperation. Further chemotherapy will be held until the patient physically improves. She remained otherwise hemodynamically stable and is tolerating oral diet. She is eating around 50% of her meals. She is fully oriented. A total of 35 minutes was spent on discharge plan. Please see a [id number] documentation for the day of discharge on [facility]. Job ID: [id number] [facility]
== END 2018-09-15 17:58 | DRG 689 ==
LOC: ERS 18:21 → ONC 20:44
PROVIDERS: ADMIT Hospitalist; ATTEND Hospitalist
DX: N30.00 Acute cystitis without hematuria (principal); G93.41 Metabolic encephalopathy; C78.7 Secondary malignant neoplasm of liver and intrahepatic bile duct; E87.1 Hypo-osmolality and hyponatremia; N17.9 Acute kidney failure, unspecified; I24.8 Other forms of acute ischemic heart disease; C25.9 Malignant neoplasm of pancreas, unspecified; F41.9 Anxiety disorder, unspecified; F32.9 Major depressive disorder, single episode, unspecified; E78.5 Hyperlipidemia, unspecified; K21.9 Gastro-esophageal reflux disease without esophagitis; I10 Essential (primary) hypertension; D53.9 Nutritional anemia, unspecified; B96.20 Unspecified Escherichia coli [E. coli] as the cause of diseases classified elsewhere; R53.81 Other malaise; E87.6 Hypokalemia; E11.65 Type 2 diabetes mellitus with hyperglycemia; E83.42 Hypomagnesemia; E83.39 Other disorders of phosphorus metabolism; Z92.21 Personal history of antineoplastic chemotherapy; Z90.710 Acquired absence of both cervix and uterus; Z87.891 Personal history of nicotine dependence; Z88.8 Allergy status to other drugs, medicaments and biological substances
CPT/HCPCS: 36415; 36416; 51701; 70450; 71045; 72170; 80048; 80053; 81003; 81015; 82553; 83735; 84100; 84443; 84484; 85025; 87077; 87086; 87186; 93005; 96361; 96365; 96367; A4353; J0696; J1642; J1650; J3475; J3480; J3490; J7050